=== PATIENT | male | born 1940 | race Caucasian/White ===

== ENCOUNTER 2016-08-19 16:41 | Observation (INO) | payer OTHER, MEDICARE ==
[2016-08-19] VITALS (8 sets, daily range): BP systolic 92–182; BP diastolic 52–91; PULSE 83–101; RESP 16–20; TEMP 97.3–98.3; O2SAT 93–98
[~2016-08-19] VITALS: Ht 177.8 cm; Wt 79.0 kg
--- NOTE | 2016-08-19 16:56 | PD ---
Physical Exam Date Seen by Provider: August 19, 2016 Time Seen by Provider: 16:53 Narrative 75 year old male presents to the emergency department for evaluation of frequent falls, difficulty swallowing for 1 week. He states his legs have been giving out and he has been falling 2-3x weekly. Vital signs reviewed. Patient awaiting bed placement. Data Data Last Documented VS Vital Signs Date Time Temp Pulse Resp B/P Pulse Ox O2 Delivery O2 Flow Rate FiO2 08/19/16 16:43 97.3 101 16 92/52 97 MDM Supervised Visit with KRISTEN: Priya Mejias August 19, 2016 16:56
[2016-08-19] MEDS ORDERED: DULA0.5I SQ (17:33)
[2016-08-19] MEDS ORDERED: COLL30T TOPICAL (17:33)
[2016-08-19] MEDS ORDERED: CYMB60CA PO (17:37)
[2016-08-19] MEDS ORDERED: PRIL20CA9 PO (17:37)
[2016-08-19] MEDS ORDERED: CYAN1CAP PO (17:37)
[2016-08-19] MEDS ORDERED: VENL75CA44 PO (17:37)
[2016-08-19] MEDS ORDERED: METF500T PO (17:37)
[2016-08-19] MEDS ORDERED: ASPI81TA11 PO (17:37)
[2016-08-19] MEDS ORDERED: AMMO12LO TOPICAL (17:40)
[2016-08-19] MEDS ORDERED: NOVOLOGP2 SQ (17:40)
[2016-08-19] MEDS ORDERED: LANTUS2P SQ (17:41)
--- NOTE | 2016-08-19 17:51 | PD ---
HPI Chief Complaint: Neuro Symptoms/ Deficits Time Seen by Provider: 17:07 Travel History International Travel<30 days: No Contact w/Intl Traveler<30days: No Traveled to known affect area: No History of Present Illness HPI 75yo M with PMH of DM, peripheral neuropathy was sent here for evaluation of frequent falls by his PMD Dr. Steven. 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 Pt has left periorbital ecchymoses from falling last week and last fell backwards this morning and hit his head. Denies any LOC and states he got up himself. Pt also c/o sob today. Pt has right lower ext swelling for a while and states he had cellulitis and that has improved. Pt is also complaining of difficulty swallowing for 2 days. States he has not eaten solid food and feels that his pills gets stuck in his esophagus. This is new. Denies any fever, chest pain, n/v, abdominal pain. PFSH Past Medical History Anemia: Yes Anxiety: Yes Cardiovascular Problems: Yes Dementia: Yes Diabetes: Yes Patient Takes Glucophage: Yes Diminished Hearing: No GERD: Yes Medical other: Yes (chronic kidney disease ) Psychiatric: Yes Tetanus Vaccination: > 5 Years Influenza Vaccination: No Social History Alcohol Use: No Tobacco Use: No Substance Use: No Allergies-Medications (Allergen,Severity, Reaction): Coded Allergies: Augmentin (Verified Adverse Reaction, Unknown, kidney problem, 08/19/16) Reported Meds & Prescriptions Reported Meds & Active Scripts Active Reported Lantus Inj (Insulin Glargine) 1,000 Unit/10 Ml Vial 25 Units SQ HS Novolog Inj (Insulin Aspart) 1,000 Unit/10 Ml Vial 0 SQ TIDAC Sliding Scale as directed. Ammonium Lactate (Lactic Acid (Ammonium Lactate)) 12% Lotn 1 Applic TOPICAL BID PRN Prilosec (Omeprazole) 20 Mg Cap 20 Mg PO DAILY Metformin (Metformin HCl) 500 Mg Tab 500 Mg PO BIDPC With meals B-12 (Cyanocobalamin) 5,000 Mcg Cap 5,000 Mcg PO DAILY Aspirin EC (Aspirin) 81 Mg Tabdr 81 Mg PO DAILY Venlafaxine ER 24 HR (Venlafaxine HCl) 75 Mg Cap 75 Mg PO DAILY Cymbalta DR (Duloxetine HCl) 60 Mg Capdr 60 Mg PO BID Santyl Topical (Collagenase) 250 Unit/Gm Oint 1 Applic TOPICAL DAILY Trulicity Inj (Dulaglutide Inj) 1.5 Mg/0.5 Ml Pen 1.5 Mg SQ Q7D ON FRIDAYS Review of Systems Except as stated in HPI: all other systems reviewed are Neg Physical Exam Narrative GENERAL: 75yo M not in distress. SKIN: Focused skin assessment warm/dry. HEAD: Atraumatic. Normocephalic. Periorbital ecchymoses on left that looks old. EYES: Pupils equal and round. No scleral icterus. No injection or drainage. ENT: No nasal bleeding or discharge. Mucous membranes pink and moist. NECK: Trachea midline. No JVD. CARDIOVASCULAR: Regular rate and rhythm. No murmur appreciated. RESPIRATORY: No accessory muscle use. Clear to auscultation. Breath sounds equal bilaterally. GASTROINTESTINAL: Abdomen soft, non-tender, nondistended. MUSCULOSKELETAL: RLE: +Edema. No erythema. NEUROLOGICAL: Awake and alert. No obvious cranial nerve deficits. Motor grossly within normal limits. Normal speech. PSYCHIATRIC: Appropriate mood and affect; insight and judgment normal. Data Data Last Documented VS Vital Signs Date Time Temp Pulse Resp B/P Pulse Ox O2 Delivery O2 Flow Rate FiO2 08/19/16 20:00 85 16 132/66 97 Room Air 08/19/16 16:[address] Brain W/O Iv Contrast(Rout) (08/19/16 ) Ct Facial Bones W/O Iv Cont (08/19/16 ) Complete Blood Count With Diff (08/19/16 17:40) Basic Metabolic Panel (Bmp) (08/19/16 17:40) B-Type Natriuretic Peptide (08/19/16 17:40) Act Partial Throm Time (Ptt) (08/19/16 17:40) Prothrombin Time / Inr (Pt) (08/19/16 17:40) Magnesium (Mg) (08/19/16 17:40) Ckmb (Isoenzyme) Profile (08/19/16 17:40) Troponin I (08/19/16 17:40) Urinalysis - C+S If Indicated (08/19/16 17:40) Electrocardiogram (08/19/16 17:40) Chest, Single Ap (08/19/16 17:40) Ct Pulmonary Angiogram (08/19/16 17:40) Us Leg Venous Doppler (08/19/16 17:40) Sodium Chlor 0.9% 1000 Ml Inj (Ns 1000 M (08/19/16 19:00) Iohexol 350 Inj (Omnipaque 350 Inj) (08/19/16 19:19) Place In Observation (08/19/16 ) Vital Signs (Adult) Q4H (08/19/16 20:18) Activity Oob With Assistance (08/19/16 20:18) Humidifier Maintenance Worker / Telemetry .CONTINUOUS (08/19/16 20:18) Diet Npo (08/20/16 Breakfast) Sodium Chloride 0.9% Flush (Ns Flush) (08/19/16 20:30) Sodium Chloride 0.9% Flush (Ns Flush) (08/19/16 21:00) Basic Metabolic Panel (Bmp) (08/20/16 06:00) Complete Blood Count With Diff (08/20/16 06:00) Naloxone Inj (Narcan Inj) (08/19/16 20:30) Admit Order (Ed Use Only) (08/19/16 20:18) Dext 5%-Nacl 0.9% 1000 Ml Inj (D5w-Ns 10 (08/19/16 20:30) Bedside Glucose BON.AC&HS (08/19/16 20:20) Blood Glucose Goal (Criteria) (08/19/16 20:20) Hypoglycemia 51 - 69 Mg/Dl (08/19/16 20:20) Hypoglycemia 50 Mg/Dl Or < (08/19/16 20:20) Notify Dr: Other (08/19/16 20:20) Dextrose 50% In Hailey (Vial) Inj (D50w (Vi (08/19/16 20:30) Glucagon Inj (Glucagon Inj) (08/19/16 20:30) Labs Laboratory Tests Test 08/19/16 17:10 White Blood Count 9.6 TH/MM3 Red Blood Count 4.64 MIL/MM3 Hemoglobin 11.6 GM/DL Hematocrit 36.8 % Mean Corpuscular Volume 79.2 FL Mean Corpuscular Hemoglobin 25.1 PG Mean Corpuscular Hemoglobin 31.6 % Concent Red Cell Distribution Width 16.7 % Platelet Count 386 TH/MM3 Mean Platelet Volume 8.4 FL Neutrophils (%) (Auto) 70.4 % Lymphocytes (%) (Auto) 16.2 % Monocytes (%) (Auto) 11.7 % Eosinophils (%) (Auto) 0.9 % Basophils (%) (Auto) 0.8 % Neutrophils # (Auto) 6.7 TH/MM3 Lymphocytes # (Auto) 1.5 TH/MM3 Monocytes # (Auto) 1.1 TH/MM3 Eosinophils # (Auto) 0.1 TH/MM3 Basophils # (Auto) 0.1 TH/MM3 CBC Comment DIFF FINAL Differential Comment Prothrombin Time 11.1 SEC Prothromb Time International 1.0 RATIO Ratio Activated Partial 28.9 SEC Thromboplast Time Sodium Level 134 MEQ/L Potassium Level 4.9 MEQ/L Chloride Level 96 MEQ/L Carbon Dioxide Level 29.5 MEQ/L Anion Gap 9 MEQ/L Blood Urea Nitrogen 38 MG/DL Creatinine 1.61 MG/DL Estimat Glomerular Filtration 42 ML/MIN Rate Random Glucose 311 MG/DL Calcium Level 9.4 MG/DL Magnesium Level 2.2 MG/DL Total Creatine Kinase 60 U/L Troponin I LESS THAN 0.02 NG/ML B-Type Natriuretic Peptide 47 PG/ML MDM Medical Decision Making Medical Screen Exam Complete: Yes Emergency Medical Condition: Yes Interpretation(s) EKG: NSR 89bpm. Normal axis. No ST segment elevation or depression. Differential Diagnosis Malignancy vs. PE vs. DVT vs. dehydration vs. electrolyte abnormality vs. ICH Narrative Course 75yo M with multiple complaints. Pt with frequent falls in the last week, last fall this morning. No focal neurologic deficit. Will obtain CT brain, maxillofacial. Labs reviewed, no leukocytosis. BNP 47. Troponin negative. Glucose elevated at 311. No increased anion gap. Will give NS IVF. Creatinine elevated at 1.61, no prior to compare. Pt states he has difficulty swallowing, will need GI consult. Pt also with SOB and no wheezing on exam. Although low suspicion for PE, pt has right lower ext edema and unexplained sob , will obtain CTA to r/o PE. Sign out to next team to follow up imaging and likely admit. Diagnosis Primary Impression: Difficulty swallowing Qualified Code: R13.12 - Oropharyngeal dysphagia Aurelia Dennison DO August 19, 2016 17:51
--- NOTE | 2016-08-19 18:00 | RADRPT ---
EXAM DATE/TIME: 08/19/2016 17:56 [facility] COMPARISON: No previous studies available for comparison. INDICATIONS : Shortness of breath. MEDICAL HISTORY : None. SURGICAL HISTORY : None. ENCOUNTER: Initial ACUITY: 1 week PAIN SCORE: 0/10 LOCATION: Bilateral chest FINDINGS: A single view of the chest demonstrates the lungs to be symmetrically aerated without evidence of mas s, infiltrate or effusion. The cardiomediastinal contours are unremarkable. Osseous structures are intact. CONCLUSION: No acute disease. Mark Palmer MD on August 19, 2016 at 17:58 Board Certified Radiologist. This report was verified electronically.
[2016-08-19 18:11] LABS: AUTOMATED NEUTROPHIL # 6.7 TH/MM3 (1.8-7.7); BASOPHIL # 0.1 TH/MM3 (0-0.2); BASOPHIL % 0.8 % (0.0-2.0); EOSINOPHIL # 0.1 TH/MM3 (0-0.4); EOSINOPHIL % 0.9 % (0.0-4.0); HEMATOCRIT 36.8 % (39.0-51.0); HEMO FLAGS DIFF FINAL; LYMPH % 16.2 % (9.0-44.0); LYMPHOCYTE # 1.5 TH/MM3 (1.0-4.8); MEAN CELL VOLUME 79.2 FL (80.0-100.0); MEAN CORPUSCULAR HEMOGLOBIN 25.1 PG (27.0-34.0); MEAN CORPUSCULAR HGB CONC 31.6 % (32.0-36.0); MONO % 11.7 % (0.0-8.0); NEUT % 70.4 % (16.0-70.0); PLATELET COUNT 386 TH/MM3 (150-450); RED BLOOD COUNT 4.64 MIL/MM3 (4.50-5.90); RED CELL DISTRIBUTION WIDTH 16.7 % (11.6-17.2); WHITE BLOOD COUNT 9.6 TH/MM3 (4.0-11.0)
[2016-08-19 18:21] LABS: APTT (PATIENT) 28.9 SEC (24.3-30.1); PROTHROMBIN TIME - PATIENT 11.1 SEC (9.8-11.6)
[2016-08-19 18:29] LABS: ANION GAP 9 MEQ/L (5-15); BICARBONATE 29.5 MEQ/L (21.0-32.0); BLOOD UREA NITROGEN 38 MG/DL (7-18); CHLORIDE 96 MEQ/L (98-107); GLOMERULAR FILTRATION RATE 42 ML/MIN (>89); MAGNESIUM 2.2 MG/DL (1.5-2.5); POTASSIUM 4.9 MEQ/L (3.5-5.1); SODIUM (NA) 134 MEQ/L (136-145)
[2016-08-19 18:40] LABS: CREATINE KINASE 60 U/L (39-308)
--- NOTE | 2016-08-19 18:49 | RADRPT ---
EXAM DATE/TIME: 08/19/2016 18:18 [facility] COMPARISON: No previous studies available for comparison. INDICATIONS : Right leg swelling. MEDICAL HISTORY : Dementia. Gastroesophageal reflux disease. Chronic kidney disease. Diabetes. Anemia. Anxiety. SURGICAL HISTORY : Right foot debridment. ENCOUNTER: Initial ACUITY: >1 year PAIN SCORE: 0/10 LOCATION: Right leg. TECHNIQUE: Venous ultrasound of the leg was performed from the inguinal ligament to the proximal calf. Real-kenyatta e, color Doppler and spectral tracing, compression and augmentation techniques were used. FINDINGS: There is normal compressibility of the deep venous system from the inguinal region to the proximal ca lf. No echogenic clot is seen in the lumen of the common femoral, femoral, popliteal, and posterior tibial veins. There is a normal response of the venous system to proximal and distal augmentation an d respiration. CONCLUSION: Normal examination. Mark Palmer MD on August 19, 2016 at 18:47 Board Certified Radiologist. This report was verified electronically.
[2016-08-19] MEDS ORDERED: SODIUM CHLOR 0.9% 1000 ML INJ 1,000 ML IV ONE (19:00)
--- NOTE | 2016-08-19 19:12 | RADRPT ---
EXAM DATE/TIME: 08/19/2016 18:51 [facility] COMPARISON: No previous studies available for comparison. INDICATIONS : Falls for one week,left eye contusion,dizzy. RADIATION DOSE: 35.79 CTDIvol (mGy) MEDICAL HISTORY : Cardiovascular disease. Dementia. Diabetes SURGICAL HISTORY : None. ENCOUNTER: Initial ACUITY: 1 week PAIN SCALE: 5/10 LOCATION: cranial TECHNIQUE: Multiple contiguous axial images were obtained of the head. Using automated exposure control and adj ustment of the mA and/or kV according to patient size, radiation dose was kept as low as reasonably a chievable to obtain optimal diagnostic quality images. FINDINGS: CEREBRUM: The ventricles are normal for age. No evidence of midline shift, mass lesion, hemorrhage or acute in farction. No extra-axial fluid collections are seen. POSTERIOR FOSSA: The cerebellum and brainstem are intact. The 4th ventricle is midline. The cerebellopontine angle i s unremarkable. EXTRACRANIAL: The visualized portion of the orbits is intact. There is mucosal sinus disease involving the left sph enoid which appears chronic with some thickening of the sinus perez. SKULL: The calvaria is intact. No evidence of skull fracture. CONCLUSION: No acute intracranial findings. Mark Palmer MD on August 19, 2016 at 19:08 Board Certified Radiologist. This report was verified electronically.
[2016-08-19] MEDS ORDERED: IOHEXOL 350 MG/ML 10 ML VIAL (for RAD DIAG) IV ONE (19:19)
--- NOTE | 2016-08-19 19:19 | RADRPT ---
EXAM DATE/TIME: 08/19/2016 18:54 [facility] COMPARISON: No previous studies available for comparison. INDICATIONS : Falls for the past week,contusion left eye. RADIATION DOSE: 36.69 CTDIvol (mGy) MEDICAL HISTORY : Cardiovascular disease. Dementia. Diabetes SURGICAL HISTORY : None. ENCOUNTER: Initial ACUITY: 1 week PAIN SCORE: 5/10 LOCATION: Bilateral facial TECHNIQUE: Volumetric scanning of the facial bones was performed. Using automated exposure control and adjustme nt of the mA and/or kV according to patient size, radiation dose was kept as low as reasonably achiev able to obtain optimal diagnostic quality images. FINDINGS: ORBITS: The orbital and infraorbital osseous structures are intact. The retroconal structures have a normal configuration. No radiopaque foreign bodies are seen. NASAL BONE: The nasal bone and maxillary spine are intact ZYGOMATIC ARCHES: Symmetric without evidence of fracture. SINUSES: Moderate chronic appearing disease in the left sphenoid. NASAL CAVITY: The nasal septum is intact and midline. The lacrimal ducts are intact. SOFT TISSUES: No radiopaque foreign bodies seen. No soft-tissue swelling is seen. INTRACRANIAL: No intracranial air seen. CRIBIFORM PLATE: Grossly intact. CONCLUSION: No facial fracture. Mark Palmer MD on August 19, 2016 at 19:16 Board Certified Radiologist. This report was verified electronically.
--- NOTE | 2016-08-19 19:22 | RADRPT ---
EXAM DATE/TIME: 08/19/2016 18:59 [facility] COMPARISON: No previous studies available for comparison. INDICATIONS : Difficulty swallowing,painful inspiration,dizzy. IV CONTRAST: 50 cc Omnipaque 350 (iohexol) IV RADIATION DOSE: 10.94 CTDIvol (mGy) MEDICAL HISTORY : Cardiovascular disease. Dementia. Diabetes SURGICAL HISTORY : None. ENCOUNTER: Initial ACUITY: 1 week PAIN SCALE: 5/10 LOCATION: chest TECHNIQUE: Volumetric scanning of the chest was performed using a pulmonary embolism protocol MIP images were re constructed. Using automated exposure control and adjustment of the mA and/or kV according to patien t size, radiation dose was kept as low as reasonably achievable to obtain optimal diagnostic quality images. FINDINGS: PULMONARY ARTERIES: No filling defects are seen in the pulmonary arteries through the segmental level. LUNGS: There is minimal infiltrate in the posterior lateral left lung base. PLEURAE: There is no pleural thickening or pleural effusion. MEDIASTINUM: There is good visualization of the great vessels of the middle mediastinum. No evidence of mediastin al or hilar adenopathy/mass. MUSCULOSKELETAL: Within normal limits for patient age. MISCELLANEOUS: Liver cyst. CONCLUSION: No evidence of pulmonary embolism Mark Palmer MD on August 19, 2016 at 19:17 Board Certified Radiologist. This report was verified electronically.
--- NOTE | 2016-08-19 20:06 | PD ---
Physical Exam Narrative Patient was seen by ED physician and signed out to me. Data Data Last Documented VS Vital Signs Date Time Temp Pulse Resp B/P Pulse Ox O2 Delivery O2 Flow Rate FiO2 08/19/16 19:29 88 16 182/84 93 Room Air 08/19/16 16:[address] Brain W/O Iv Contrast(Rout) (08/19/16 ) Ct Facial Bones W/O Iv Cont (08/19/16 ) Complete Blood Count With Diff (08/19/16 17:40) Basic Metabolic Panel (Bmp) (08/19/16 17:40) B-Type Natriuretic Peptide (08/19/16 17:40) Act Partial Throm Time (Ptt) (08/19/16 17:40) Prothrombin Time / Inr (Pt) (08/19/16 17:40) Magnesium (Mg) (08/19/16 17:40) Ckmb (Isoenzyme) Profile (08/19/16 17:40) Troponin I (08/19/16 17:40) Urinalysis - C+S If Indicated (08/19/16 17:40) Electrocardiogram (08/19/16 17:40) Chest, Single Ap (08/19/16 17:40) Ct Pulmonary Angiogram (08/19/16 17:40) Us Leg Venous Doppler (08/19/16 17:40) Sodium Chlor 0.9% 1000 Ml Inj (Ns 1000 M (08/19/16 19:00) Iohexol 350 Inj (Omnipaque 350 Inj) (08/19/16 19:19) Labs Laboratory Tests Test 08/19/16 17:10 White Blood Count 9.6 TH/MM3 Red Blood Count 4.64 MIL/MM3 Hemoglobin 11.6 GM/DL Hematocrit 36.8 % Mean Corpuscular Volume 79.2 FL Mean Corpuscular Hemoglobin 25.1 PG Mean Corpuscular Hemoglobin 31.6 % Concent Red Cell Distribution Width 16.7 % Platelet Count 386 TH/MM3 Mean Platelet Volume 8.4 FL Neutrophils (%) (Auto) 70.4 % Lymphocytes (%) (Auto) 16.2 % Monocytes (%) (Auto) 11.7 % Eosinophils (%) (Auto) 0.9 % Basophils (%) (Auto) 0.8 % Neutrophils # (Auto) 6.7 TH/MM3 Lymphocytes # (Auto) 1.5 TH/MM3 Monocytes # (Auto) 1.1 TH/MM3 Eosinophils # (Auto) 0.1 TH/MM3 Basophils # (Auto) 0.1 TH/MM3 CBC Comment DIFF FINAL Differential Comment Prothrombin Time 11.1 SEC Prothromb Time International 1.0 RATIO Ratio Activated Partial 28.9 SEC Thromboplast Time Sodium Level 134 MEQ/L Potassium Level 4.9 MEQ/L Chloride Level 96 MEQ/L Carbon Dioxide Level 29.5 MEQ/L Anion Gap 9 MEQ/L Blood Urea Nitrogen 38 MG/DL Creatinine 1.61 MG/DL Estimat Glomerular Filtration 42 ML/MIN Rate Random Glucose 311 MG/DL Calcium Level 9.4 MG/DL Magnesium Level 2.2 MG/DL Total Creatine Kinase 60 U/L Troponin I LESS THAN 0.02 NG/ML B-Type Natriuretic Peptide 47 PG/ML MDM Supervised Visit with KRISTEN: No Narrative Course Patient was seen by ED physician and signed out to me. Patient main complaint is difficulty in swallowing for the past 2 days and generalized weakness. Normal saline solution and liter IV bolus. Normal saline solution 100 cc an hour. Protonix 40 mg IV. Diagnosis Primary Impression: Difficulty swallowing Qualified Code: R13.12 - Oropharyngeal dysphagia Additional Impressions: Chronic kidney disease Qualified Code: N18.3 - Stage 3 chronic kidney disease Hyperglycemia Admitting Information Admitting Physician Requests: Observation Livan Banks MD August 19, 2016 20:06
[2016-08-19] MEDS ORDERED: SODIUM CHLORIDE 0.9% FLUSH 10 ML FLUSH IV FLUSH PRN (20:30)
[2016-08-19] MEDS ORDERED: GLUCAGON 1 MG/ML VIAL OTHER PRN (20:30)
[2016-08-19] MEDS ORDERED: DEXT 5%-NACL 0.9% 1000 ML INJ 1,000 ML IV SCH (20:30)
[2016-08-19] MEDS ORDERED: DEXTROSE 50% IN WATER 50 ML VIAL(D50) IV PUSH PRN (20:30)
[2016-08-19] MEDS ORDERED: NALOXONE HCL 0.4 MG/ML AMP IV PRN (20:30)
[2016-08-19] MEDS: SODIUM CHLORIDE 0.9% FLUSH 10 ML FLUSH IV FLUSH SCH (21:00)
--- NOTE | 2016-08-19 23:35 | HHI.HP ---
[facility] Admission Diagnosis difficulty in swallowing. Renal insufficiency. Hyperglycemia. Diagnoses: Chief Complaint: frequent falls and dysphagia Travel History International Travel<30 Days: No Contact w/Intl Traveler <30 Da: No Traveled to Known Affected Are: No History of Present Illness This is a 75-year-old male patient with past medical history which includes diabetes mellitus, GERD and depression. Patient was sent by [facility] clinic. Per evaluation after fall in a parking lot. Patient reports he has had Intermittent dizziness x 2 weeks. Feels as though he is spinning inside, does not feel as though the room is spinning. Dizziness only occurs with standing. Patient also reports associated shortness of breath. Patient denies associated ear discharge, ringing in the ears, N/V or diaphoresis. Patient report he had chest pain after he fell and hit the ground. Chest pain described as a stabbing sensation lasting seconds then resolving spontaneously. Patient reports that he gets so dizzy that has fallen down several times. Patient estimates 20 falls over the past two weeks. Today patient got dizzy walking in a parking lot and fell face forward. Patient denies LOC. Patient denies blood in stool or black color stools. Patient is a diabetic and reports his blood sugar have been running high 200- 300 lately. Glucose upon arrival 312 Patient does report that his BP is usually low when he checks if after his falls , reported SBP as been as low as 60's. Patient also has have difficult swallowing for the past 2-3 days. Patient reports he is unable to swallow liquids from a cup he has to use a straw. Patient is unable to get solids down. Patient reports he often coughs after trying to eat solids or drink liquids. Patient reports he has never had EGD or colonoscopy. Patient has had unilateral lower extremity edema R>L for the past 5 years. Patient also seeing a [facility] operating systems programmer for wound right foot medial surface, had I& D yesterday. Patient denies fevers chills cough congestion nausea vomiting diarrhea constipation. Review of Systems Except as stated in HPI: all other systems reviewed are Neg Past Family Social History Past Medical History DM, GERD and depression Past Surgical History Cervical discectomy, debridement of feet wound, appendectomy Reported Medications Lantus Inj (Insulin Glargine) 1,000 Unit/10 Ml Vial 25 Units SQ HS Novolog Inj (Insulin Aspart) 1,000 Unit/10 Ml Vial 0 SQ TIDAC Sliding Scale as directed. Ammonium Lactate (Lactic Acid (Ammonium Lactate)) 12% Lotn 1 Applic TOPICAL BID PRN Prilosec (Omeprazole) 20 Mg Cap 20 Mg PO DAILY Metformin (Metformin HCl) 500 Mg Tab 500 Mg PO BIDPC With meals B-12 (Cyanocobalamin) 5,000 Mcg Cap 5,000 Mcg PO DAILY Aspirin EC (Aspirin) 81 Mg Tabdr 81 Mg PO DAILY Venlafaxine ER 24 HR (Venlafaxine HCl) 75 Mg Cap 75 Mg PO DAILY Cymbalta DR (Duloxetine HCl) 60 Mg Capdr 60 Mg PO BID Santyl Topical (Collagenase) 250 Unit/Gm Oint 1 Applic TOPICAL DAILY Trulicity Inj (Dulaglutide Inj) 1.5 Mg/0.5 Ml Pen 1.5 Mg SQ Q7D ON FRIDAYS Allergies: Coded Allergies: Augmentin (Verified Adverse Reaction, Unknown, kidney problem, 08/19/16) Active Ordered Medications Current Medications Medications (Trade) Dose Ordered Sig/Robert Route Start Time Stop Time Status Last Admin (NS Flush) 2 ml UNSCH PRN IV FLUSH 08/19/16 20:30 (NS Flush) 2 ml BID IV FLUSH 08/19/16 21:00 08/19/16 21:00 Naloxone HCl 0.4 mg 0.4 mg UNSCH PRN IV 08/19/16 20:30 (D5W-NS 1000 ml Inj) 1,000 ml @ 42 mls/hr [id number] IV 08/19/16 20:30 08/19/16 21:00 (D50w (Vial) Inj) 25 ml UNSCH PRN IV PUSH 08/19/16 20:30 (Glucagon Inj) 1 mg UNSCH PRN OTHER 08/19/16 20:30 (D50w (Vial) Inj) 25 ml UNSCH PRN IV PUSH 08/20/16 00:00 UNV (Glucagon Inj) 1 mg UNSCH PRN OTHER 08/20/16 00:00 UNV (Ecotrin Ec) 81 mg DAILY PO 08/20/16 09:00 UNV (Cymbalta Dr) 60 mg BID PO 08/20/16 09:00 UNV (Effexor Xr) 75 mg DAILY PO 08/20/16 09:00 UNV Non-Formulary Medication 20 mg DAILY PO 08/20/16 09:00 UNV Family History Mother had, "intestinal cancer" brother also had cancer unable to recall type Social History Denies ETOH use, tobacco use or illicit drug use Physical Exam Vital Signs Vital Signs Date Time Temp Pulse Resp B/P Pulse Ox O2 Delivery O2 Flow Rate FiO2 08/19/16 22:35 88 08/19/16 22:19 98.3 86 20 167/91 96 08/19/16 21:01 84 18 172/83 96 Room Air 08/19/16 20:00 85 16 132/66 97 Room Air 08/19/16 19:29 88 16 182/84 93 Room Air 08/19/16 18:06 89 17 141/77 98 Room Air 08/19/16 17:05 92 17 98 Room Air 08/19/16 16:43 97.3 101 16 92/52 97 Physical Exam GENERAL: This is a 75-year-old male patient appears disheveled with ecchymosis across nasal bridge and left periorbital area, clinically appears dry with dry mucous membranes and dry skin SKIN: Scattered abrasions throughout bilateral upper and lower extremities with with ecchymosis across nasal bridge and left periorbital area, ulceration right foot medial aspect no erythema, drainage or foul odor noted HEAD: ecchymosis across nasal bridge and left periorbital area EYES: Extraocular motions intact. No scleral icterus. No injection or drainage. CARDIOVASCULAR: Regular rate and rhythm without murmurs, gallops, or rubs. RESPIRATORY: Clear to auscultation. Breath sounds equal bilaterally. No wheezes , rales, or rhonchi. GASTROINTESTINAL: Abdomen soft, non-tender, nondistended. No hepato-splenomegaly , or palpable masses. No guarding. MUSCULOSKELETAL: No calf tenderness. Negative Homans sign bilaterally. Right lower extremity edema NEUROLOGICAL: Awake and alert. No focal deficits noted. Motor and sensory grossly within normal limits. 4-5 out of 5 muscle strength in all muscle groups. Normal speech. Laboratory Laboratory Tests Test 08/19/16 17:10 White Blood Count 9.6 Red Blood Count 4.64 Hemoglobin 11.6 Hematocrit 36.8 Mean Corpuscular Volume 79.2 Mean Corpuscular Hemoglobin 25.1 Mean Corpuscular Hemoglobin 31.6 Concent Red Cell Distribution Width 16.7 Platelet Count 386 Mean Platelet Volume 8.4 Neutrophils (%) (Auto) 70.4 Lymphocytes (%) (Auto) 16.2 Monocytes (%) (Auto) 11.7 Eosinophils (%) (Auto) 0.9 Basophils (%) (Auto) 0.8 Neutrophils # (Auto) 6.7 Lymphocytes # (Auto) 1.5 Monocytes # (Auto) 1.1 Eosinophils # (Auto) 0.1 Basophils # (Auto) 0.1 CBC Comment DIFF FINAL Differential Comment Prothrombin Time 11.1 Prothromb Time International 1.0 Ratio Activated Partial 28.9 Thromboplast Time Sodium Level 134 Potassium Level 4.9 Chloride Level 96 Carbon Dioxide Level 29.5 Anion Gap 9 Blood Urea Nitrogen 38 Creatinine 1.61 Estimat Glomerular Filtration 42 Rate Random Glucose 311 Calcium Level 9.4 Magnesium Level 2.2 Total Creatine Kinase 60 Troponin I LESS THAN 0.02 B-Type Natriuretic Peptide 47 Result Diagram: 08/19/16170908/19/161709 Imaging Last Impressions Lower Extremity Ultrasound 08/19/161739 Signed Impressions: Service Date/Time: Friday, August 19, 2016 18:18 - CONCLUSION: Normal examination. Mark Palmer MD Chest X-Ray 08/19/161739 Signed Impressions: Service Date/Time: Friday, August 19, 2016 17:56 - CONCLUSION: No acute disease. Mark Palmer MD CT Angiography [id number]/19/161739 Signed Impressions: Service Date/Time: Friday, August 19, 2016 18:59 - CONCLUSION: No evidence of pulmonary embolism Mark Palmer MD Maxillofacial CT 08/19/16 0000 Signed Impressions: Service Date/Time: Friday, August 19, 2016 18:54 - CONCLUSION: No facial fracture. Mark Palmer MD Head CT 08/19/16 0000 Signed Impressions: Service Date/Time: Friday, August 19, 2016 18:51 - CONCLUSION: No acute intracranial findings. Mark Palmer MD Assessment and Plan Problem List: (1) Dizziness ICD Code: R42 Status: Acute (2) Postural dizziness ICD Code: R42 Status: Acute (3) Difficulty swallowing ICD Code: R13.10 Status: Acute (4) DM type 2, uncontrolled, with lower extremity ulcer ICD Code: E11.622 Status: Chronic Assessment and Plan This is a 75-year-old male patient with past medical history which includes diabetes mellitus, GERD and depression. Patient was sent by [facility] clinic. Per evaluation after fall in a parking lot. Patient reports he has had Intermittent dizziness x 2 weeks. With frequent falls and SOB x 2 weeks. Patient also has have difficult swallowing for the past 2-3 days. Dizziness with frequent falls: Dehydration versus vertigo versus carotid stenosis versus posterior circulation insufficiency versus arrhythmia versus postural hypotension CT angiogram chest reviewed negative for pulmonary embolism Continue gentle IV hydration Continuous cardiac telemetry US bilateral carotid arteries ordered Check orthostatic vital signs Dysphagia- with both liquids and solids Nothing by mouth at this time IV hydration Consult GI Diabetes mellitus uncontrolled Accu checks before meals at bedtime with low-dose sliding scale insulin coverage and adjust as indicated Ulceration right foot medial aspect Consult wound care Right lower extremity edema chronic Lower extremity ultrasound reviewed no evidence of DVT Other chronic stable conditions include GERD and depression will continue home medications DVT prophylaxis with SCDs Discussed with ER provider, nursing and patient Written by Lakisha Matute, acting as scribe for Dr. Fung on 08/20/16 at 00: 03. This note was transcribed by scribe [ Lakisha Matute]. I, Dr. Madelaine Fung personally performed the history, physical exam, and medical decision making; and confirmed the accuracy of the information in the transcribed note. Authenticated by Dr. Madelaine Fung on 08/20/16 at 00:03. Problem Qualifiers (1) Difficulty swallowing: Qualified Code: R13.12 - Oropharyngeal dysphagia Lakisha Matute August 19, 2016 23:35 Madelaine Fung MD Sep 21, 2016 12:13
[2016-08-20] VITALS (8 sets, daily range): BP systolic 54–196; BP diastolic 42–102; PULSE 82–92; RESP 16–20; TEMP 97.6–98.6; O2SAT 95–98
[2016-08-20] MEDS ORDERED: GLUCAGON 1 MG/ML VIAL OTHER PRN
[2016-08-20] MEDS ORDERED: DEXTROSE 50% IN WATER 50 ML VIAL(D50) IV PUSH PRN
[2016-08-20 03:36] LABS: BLOOD, URINE NEG (NEG); COMMENT (UR) CULT NOT INDICATED; CULTURE IF INDICATED CULT NOT INDICATED; GLUCOSE,URINE 1000 mg/dL (NEG); HYALINE CAST, URINE 15 /lpf (RARE); KETONE, URINE 10 mg/dL (NEG); MUCUS URINE FEW /lpf (OCC); NITRITE,URINE NEG (NEG); PH, URINE 5.5 (5.0-8.5); SQUAMOUS EPITHELIAL CELL URINE <1 /hpf (0-5); URINE COLOR YELLOW (YELLW/STRAW)
[2016-08-20] MEDS: SODIUM CHLOR 0.9% 1000 ML INJ 1,000 ML IV SCH ×2 (08:07→17:30)
[2016-08-20] MEDS: DEXT 5%-NACL 0.45% 1000 ML INJ 1,000 ML IV SCH (08:13)
[2016-08-20] MEDS: DULoxetine HCl DR 60 MG CAP PO SCH ×2 (08:26→20:01)
[2016-08-20] MEDS: VENLAFAXINE HCL XR 75 MG CAP PO SCH (08:26)
[2016-08-20] MEDS: ASPIRIN EC 81 MG TABEC PO SCH (08:26)
[2016-08-20] MEDS: SODIUM CHLORIDE 0.9% FLUSH 10 ML FLUSH IV FLUSH SCH ×2 (08:27→20:01)
[2016-08-20 08:34] LABS: AUTOMATED NEUTROPHIL # 5.4 TH/MM3 (1.8-7.7); BASOPHIL # 0.1 TH/MM3 (0-0.2); BASOPHIL % 0.8 % (0.0-2.0); EOSINOPHIL # 0.2 TH/MM3 (0-0.4); EOSINOPHIL % 2.1 % (0.0-4.0); HEMATOCRIT 38.3 % (39.0-51.0); HEMO FLAGS DIFF FINAL; LYMPH % 23.2 % (9.0-44.0); LYMPHOCYTE # 1.9 TH/MM3 (1.0-4.8); MEAN CELL VOLUME 78.8 FL (80.0-100.0); MEAN CORPUSCULAR HEMOGLOBIN 25.4 PG (27.0-34.0); MEAN CORPUSCULAR HGB CONC 32.3 % (32.0-36.0); MONO % 9.3 % (0.0-8.0); NEUT % 64.6 % (16.0-70.0); PLATELET COUNT 433 TH/MM3 (150-450); RED BLOOD COUNT 4.85 MIL/MM3 (4.50-5.90); RED CELL DISTRIBUTION WIDTH 16.4 % (11.6-17.2); WHITE BLOOD COUNT 8.4 TH/MM3 (4.0-11.0)
[2016-08-20] MEDS: INSULIN ASPART SUPPLEMENTAL SCALE SQ SCH ×4 (08:49→20:10)
[2016-08-20] MEDS ORDERED: PANTOPRAZOLE SOD 20 MG DELAYED RELEASE TAB PO SCH (09:00)
[2016-08-20 09:07] LABS: BICARBONATE 30.1 MEQ/L (21.0-32.0); POTASSIUM 5.1 MEQ/L (3.5-5.1)
--- NOTE | 2016-08-20 09:29 | RADRPT ---
EXAM DATE/TIME: 08/20/2016 08:11 [place] COMPARISON: No previous studies available for comparison. INDICATIONS : Syncope. MEDICAL HISTORY : Cardiovascular disease. Dementia. Diabetes SURGICAL HISTORY : None. ENCOUNTER: Initial ACUITY: 1 day PAIN SCORE: 3/10 LOCATION: Bilateral neck PEAK SYSTOLIC VELOCITIES (cm/sec): ICA/CCA RATIO: Right: 1.1 Left: 1.3 ICA: Right: 58 Left: 67 CCA: Right: 51 Left: 51 ECA: Right: 60 Left: 64 VERTEBRAL: Right: 34 antegrade Left: 48 antegrade Elevated flow velocities and ICA/CCA ratios have been found to correlate with increased degrees of vessel stenosis, calculated as percentage of diameter relative to a normal segment of distal ICA/CCA FINDINGS: RIGHT CAROTID: No significant stenosis is visualized. The waveforms are within normal limits. LEFT CAROTID: No significant stenosis is visualized. The waveforms are within normal limits. VERTEBRAL ARTERIES: Antegrade flow is seen in both vertebral arteries. MISCELLANEOUS: None. CONCLUSION: 1. Minimal plaque in the carotid arteries bilaterally. No hemodynamically significant stenosis. Verte bral artery flow antegrade. Gabriel Ferrell MD on August 20, 2016 at 9:23 Board Certified Radiologist. This report was verified electronically.
--- NOTE | 2016-08-20 09:43 | PD.CONS ---
HPI History of Present Illness This is a 75 year old [gentleman[facility] c/o dizziness and having multiple falls for the last 2 months and has been getting worse. GI was consulted for dysphagia. 4 days ago he began having trouble swallowing. It started just after he fell adn landed on his face, he couldn't swallow hot tea. AFter that he had trouble swallowing just about everything including water, solid food. When he tries to swallow he coughs and "just can't get it down", denies feeling of choking. He says he was ok with soup that he crushed crackers in to thicken. He had to use a straw to get fluids. THe straw seems to help b/c its a smaller amount of substance and he feels he had trouble with larger boluses. HE admits feeling tired and that is progressing, in the last few months and worse the last week. He Denies drooling, regurgitation, n/v, significant reflux or heartburn, odynophagia, abdominal pain , blood in stool, dark tarry stools, diarrhea, constipation. Never had EGD or colonoscopy. (Maryam Fermin) PFSH Past Medical History DM, and depression dizziness Past Surgical History anterior Cervical discectomy, debridement of feet wound, appendectomy (Maryam Fermin) Coded Allergies: Augmentin (Verified Adverse Reaction, Unknown, kidney problem, 08/19/16) Medications Current Medications Medications (Trade) Dose Ordered Sig/Robert Route PRN Reason Start Time Stop Time Status Last Admin Dose Admin Sodium Chloride (NS Flush) 2 ml UNSCH PRN IV FLUSH FLUSH AFTER USING IV ACCESS 08/19/16 20:30 Sodium Chloride (NS Flush) 2 ml BID IV FLUSH 08/19/16 21:00 08/20/16 08:27 Naloxone HCl (Narcan Inj) 0.4 mg UNSCH PRN IV SEE LABEL COMMENTS 08/19/16 20:30 Dextrose (D50w (Vial) Inj) 25 ml UNSCH PRN IV PUSH HYPOGLYCEMIA-SEE COMMENTS 08/19/16 20:30 Glucagon (Glucagon Inj) 1 mg UNSCH PRN OTHER HYPOGLYCEMIA-SEE COMMENTS 08/19/16 20:30 Dextrose (D50w (Vial) Inj) 25 ml UNSCH PRN IV PUSH HYPOGLYCEMIA-SEE COMMENTS 08/20/16 00:00 Glucagon (Glucagon Inj) 1 mg UNSCH PRN OTHER HYPOGLYCEMIA-SEE COMMENTS 08/20/16 00:00 Aspirin (Ecotrin Ec) 81 mg DAILY PO 08/20/16 09:00 Duloxetine HCl (Cymbalta Dr) 60 mg BID PO 08/20/16 09:00 Venlafaxine HCl (Effexor Xr) 75 mg DAILY PO 08/20/16 09:00 Pantoprazole Sodium 20 mg 20 mg DAILY PO 08/20/16 09:00 Sodium Chloride 1,000 ml @ 100 mls/hr Q10H IV 08/20/16 07:30 08/20/16 08:07 Dextrose/Sodium Chloride (D5W-1/2 NS 1000 ml Inj) 1,000 ml @ 42 mls/hr [id number] IV 08/20/16 07:45 08/20/16 08:13 Family History Mother had, "intestinal cancer" brother also had cancer unable to recall type Social History Denies ETOH use, tobacco use or illicit drug use (Maryam Fermin) Review of Systems Constitutional: COMPLAINS OF: Fatigue (all the time), DENIES: Fever Eyes: DENIES: Blurred vision Ears, nose, mouth, throat: COMPLAINS OF: Vertigo, DENIES: Throat pain Respiratory: DENIES: Cough Cardiovascular: DENIES: Palpitations Gastrointestinal: COMPLAINS OF: Difficulty Swallowing, DENIES: Abdominal pain , Black stools, Bloody stools, Constipation, Diarrhea, Nausea, Vomiting, Odynophagia, Heartburn Genitourinary: DENIES: Hematuria Musculoskeletal: DENIES: Muscle aches Integumentary: DENIES: Abnormal pigmentation Hematologic/lymphatic: DENIES: Bruising Neurologic: COMPLAINS OF: Localized weakness (feels weak on his legs when he stands) Psychiatric: DENIES: Confusion (Maryam Fermin) GI Exam Vitals I&O Vital Signs Date Time Temp Pulse Resp B/P Pulse Ox O2 Delivery O2 Flow Rate FiO2 08/20/16 07:40 97.6 85 16 177/102 95 115/75 82/54 08/20/16 07:25 85 08/20/16 04:18 98.1 82 20 182/96 98 08/19/16 23:45 98.3 83 20 167/82 96 08/19/16 22:35 88 08/19/16 22:19 98.3 86 20 167/91 96 08/19/16 21:01 84 18 172/83 96 Room Air 08/19/16 20:00 85 16 132/66 97 Room Air 08/19/16 19:29 88 16 182/84 93 Room Air 08/19/16 18:06 89 17 141/77 98 Room Air 08/19/16 17:05 92 17 98 Room Air 08/19/16 16:43 97.3 101 16 92/52 97 I/O 08/19/16 08/19/16 08/19/16 08/20/16 08/20/16 08/20/16 07:00 15:00 23:00 07:00 15:00 23:00 Intake Total 25 ml Balance 25 ml Intake Oral 25 ml Imaging Last Impressions Carotid Artery Ultrasound 08/20/16 Signed Impressions: Service Date/Time: August 08:11 - CONCLUSION: 1. Minimal plaque in the carotid arteries bilaterally. No hemodynamically significant stenosis. Vertebral artery flow antegrade. Gabriel Ferrell MD Lower Extremity Ultrasound [id number]/19/[id number] Signed Impressions: Service Date/Time: Friday, August 19, 2016 18:18 - CONCLUSION: Normal examination. Mark Palmer MD Chest X-Ray [id number]/19/161739 Signed Impressions: Service Date/Time: Friday, August 19, 2016 17:56 - CONCLUSION: No acute disease. Mark Palmer MD CT Angiography [id number]/19/161739 Signed Impressions: Service Date/Time: Friday, August 19, 2016 18:59 - CONCLUSION: No evidence of pulmonary embolism Mark Palmer MD Maxillofacial CT 08/19/16 Signed Impressions: Service Date/Time: Friday, August 19, 2016 18:54 - CONCLUSION: No facial fracture. Mark Palmer MD Head CT 08/19/16 Signed Impressions: Service Date/Time: Friday, August 19, 2016 18:51 - CONCLUSION: No acute intracranial findings. Mark Palmer MD Laboratory Test 08/19/16 08/20/16 17:10 06:52 White Blood Count 9.6 TH/MM3 8.4 TH/MM3 Red Blood Count 4.64 MIL/MM3 4.85 MIL/MM3 Hemoglobin 11.6 GM/DL 12.3 GM/DL Hematocrit 36.8 % 38.3 % Mean Corpuscular Volume 79.2 FL 78.8 FL Mean Corpuscular Hemoglobin 25.1 PG 25.4 PG Mean Corpuscular Hemoglobin 31.6 % 32.3 % Concent Red Cell Distribution Width 16.7 % 16.4 % Platelet Count 386 TH/MM3 433 TH/MM3 Mean Platelet Volume 8.4 FL 8.2 FL Neutrophils (%) (Auto) 70.4 % 64.6 % Lymphocytes (%) (Auto) 16.2 % 23.2 % Monocytes (%) (Auto) 11.7 % 9.3 % Eosinophils (%) (Auto) 0.9 % 2.1 % Basophils (%) (Auto) 0.8 % 0.8 % Neutrophils # (Auto) 6.7 TH/MM3 5.4 TH/MM3 Lymphocytes # (Auto) 1.5 TH/MM3 1.9 TH/MM3 Monocytes # (Auto) 1.1 TH/MM3 0.8 TH/MM3 Eosinophils # (Auto) 0.1 TH/MM3 0.2 TH/MM3 Basophils # (Auto) 0.1 TH/MM3 0.1 TH/MM3 CBC Comment DIFF FINAL DIFF FINAL Differential Comment Prothrombin Time 11.1 SEC Prothromb Time International 1.0 RATIO Ratio Activated Partial 28.9 SEC Thromboplast Time Sodium Level 134 MEQ/L 137 MEQ/L Potassium Level 4.9 MEQ/L 5.1 MEQ/L Chloride Level 96 MEQ/L 100 MEQ/L Carbon Dioxide Level 29.5 MEQ/L 30.1 MEQ/L Anion Gap 9 MEQ/L 7 MEQ/L Blood Urea Nitrogen 38 MG/DL 26 MG/DL Creatinine 1.61 MG/DL 1.14 MG/DL Estimat Glomerular Filtration 42 ML/MIN 63 ML/MIN Rate Random Glucose 311 MG/DL 229 MG/DL Calcium Level 9.4 MG/DL 9.4 MG/DL Magnesium Level 2.2 MG/DL Total Creatine Kinase 60 U/L Troponin I LESS THAN 0.02 NG/ML B-Type Natriuretic Peptide 47 PG/ML Physical Examination HEENT: EOMI; normocephalic; atraumatic; no jaundice. Bruising on nose CHEST: CTA. CARDIAC: RRR. ABDOMEN: Soft, nondistended, nontender; no hepatosplenomegaly; bowel sounds are present in all four quadrants. EXTREMITIES: No clubbing, cyanosis, or edema. SKIN: Normal; no rash; no jaundice. 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 (Maryam Fermin) Assessment and Plan Plan ASSESSMENT - dysphagia - onset 4 days ago after a fall. REcent hx dizziness and frequent falls. Is able to eat thick soup and swallow fluids with straw, but difficulty swallowing water, solid food. swallow eval pending, barium swallow pending. Will do EGD. PLAN - EGD tomorrow - obtain consents - NPO after midnight - await barium swallow and swallow eval - further recommendations based on results of above - This pt seen by myself and Dr Bradley and this note is written on her behalf ( Maryam Fermin) Physician Comments patient seen, examined he never had egd/colonoscopy in the past has neuropathy secondary diabetes, not following with any specialist he also reports fulness after eating , weight loss-40 lbs in the last 1 year due to poor appetite did not seek medical attention until recently egd in am speech therapy consult neurology consult if ok with medical team vit b12, folic acid , myasthenia gravis ab (Nikia Bradley MD) Maryam Fermin August 20, 2016 09:43 Nikia Bradley MD August 20, 2016 17:25
[2016-08-20] MEDS ORDERED: CYCLOBENZAPRINE HCL 10 MG TAB PO PRN (10:30)
--- NOTE | 2016-08-20 10:37 | HHI.PR ---
Subjective Remarks Follow up dysphagia and dizziness. Patient states he started to have difficultly swallowing 4 days ago after he fell. He reports that he coughs when he drinks liquids and he has pain when he takes a deep breath. He also states he falls when he stands up and becomes lightheaded, denies any LOC. Denies any chest pain, nausea or abdominal pain. Objective Vitals Vital Signs Date Time Temp Pulse Resp B/P Pulse Ox O2 Delivery O2 Flow Rate FiO2 08/20/16 07:40 97.6 85 16 177/102 95 115/75 82/54 08/20/16 07:25 85 08/20/16 04:18 98.1 82 20 182/96 98 08/19/16 23:45 98.3 83 20 167/82 96 08/19/16 22:35 88 08/19/16 22:19 98.3 86 20 167/91 96 08/19/16 21:01 84 18 172/83 96 Room Air 08/19/16 20:00 85 16 132/66 97 Room Air 08/19/16 19:29 88 16 182/84 93 Room Air 08/19/16 18:06 89 17 141/77 98 Room Air 08/19/16 17:05 92 17 98 Room Air 08/19/16 16:43 97.3 101 16 92/52 97 I/O 08/19/16 08/19/16 08/19/16 08/20/16 08/20/16 08/20/16 07:00 15:00 23:00 07:00 15:00 23:00 Intake Total 25 ml Balance 25 ml Intake Oral 25 ml Result Diagram: 08/20/16 0652 08/20/16 0652 Imaging Last Impressions Carotid Artery Ultrasound 08/20/16 0000 Signed Impressions: Service Date/Time: August 08:11 - CONCLUSION: 1. Minimal plaque in the carotid arteries bilaterally. No hemodynamically significant stenosis. Vertebral artery flow antegrade. Gabriel Ferrell MD Lower Extremity Ultrasound [id number]/[id number] Signed Impressions: Service Date/Time: Friday, August 19, 2016 18:18 - CONCLUSION: Normal examination. Mark Palmer MD Chest X-Ray [id number]/[id number] Signed Impressions: Service Date/Time: Friday, August 19, 2016 17:56 - CONCLUSION: No acute disease. Mark Palmer MD CT Angiography 08/19/16 1740 Signed Impressions: Service Date/Time: Friday, August 19, 2016 18:59 - CONCLUSION: No evidence of pulmonary embolism Mark Palmer MD Maxillofacial CT 08/19/16 0000 Signed Impressions: Service Date/Time: Friday, August 19, 2016 18:54 - CONCLUSION: No facial fracture. Mark Palmer MD Head CT 08/19/16 0000 Signed Impressions: Service Date/Time: Friday, August 19, 2016 18:51 - CONCLUSION: No acute intracranial findings. Mark Palmer MD Objective Remarks GENERAL: This is a 75-year-old male patient appears disheveled with ecchymosis across nasal bridge and left periorbital area, clinically appears dry with dry mucous membranes and dry skin SKIN: Scattered abrasions throughout bilateral upper and lower extremities with with ecchymosis across nasal bridge and left periorbital area, ulceration right foot medial aspect no erythema, drainage or foul odor noted HEAD: ecchymosis across nasal bridge and left periorbital area EYES: Extraocular motions intact. No scleral icterus. No injection or drainage. CARDIOVASCULAR: Regular rate and rhythm without murmurs, gallops, or rubs. RESPIRATORY: Clear to auscultation. Breath sounds equal bilaterally. No wheezes , rales, or rhonchi. GASTROINTESTINAL: Abdomen soft, non-tender, nondistended. No guarding. MUSCULOSKELETAL: No calf tenderness. NEUROLOGICAL: Awake and alert. No focal deficits noted. Motor and sensory grossly within normal limits.Normal speech. Medications and IVs Current Medications Medications (Trade) Dose Ordered Sig/Robert Route Start Time Stop Time Status Last Admin (NS Flush) 2 ml UNSCH PRN IV FLUSH 08/19/16 20:30 (NS Flush) 2 ml BID IV FLUSH 08/19/16 21:00 08/20/16 08:27 (Narcan Inj) 0.4 mg UNSCH PRN IV 08/19/16 20:30 (D50w (Vial) Inj) 25 ml UNSCH PRN IV PUSH 08/19/16 20:30 (Glucagon Inj) 1 mg UNSCH PRN OTHER 08/19/16 20:30 (D50w (Vial) Inj) 25 ml UNSCH PRN IV PUSH 08/20/16 00:00 (Glucagon Inj) 1 mg UNSCH PRN OTHER 08/20/16 00:00 (Ecotrin Ec) 81 mg DAILY PO 08/20/16 09:00 (Cymbalta Dr) 60 mg BID PO 08/20/16 09:00 (Effexor Xr) 75 mg DAILY PO 08/20/16 09:00 Pantoprazole Sodium 20 mg 20 mg DAILY PO 08/20/16 09:00 Sodium Chloride 1,000 ml @ 100 mls/hr Q10H IV 08/20/16 07:30 08/20/16 08:07 (D5W-/ NS 1000 ml Inj) 1,000 ml @ 42 mls/hr [id number] IV 08/20/16 07:45 08/20/16 08:13 A/P Problem List: (1) Orthostatic hypotension ICD Code: I95.1 Status: Acute (2) Difficulty swallowing ICD Code: R13.10 Status: Acute (3) DM type 2, uncontrolled, with lower extremity ulcer ICD Code: E11.622 Status: Chronic Assessment and Plan This is a 75-year-old male patient with past medical history which includes diabetes mellitus, GERD and depression. Patient was sent by [place] [facility]. Per evaluation after fall in a parking lot. Patient reports he has had Intermittent dizziness x 2 weeks. With frequent falls and SOB x 2 weeks. Patient also has have difficult swallowing for the past 2-3 days. Dizziness with frequent falls from orthostasis Images: CT angiogram chest reviewed negative for pulmonary embolism, US Carotids unremarkable -Continue IV hydration -Continuous cardiac telemetry -Positive orthostatic BP, will cont to check orthostatic vital signs -Colten vilchis, PT, may consider midodrine if BP does not improve NITISH, likely due to dehydration, creatine 1.61-->1.14, unknown baseline -Cont IVF hydration -Cont to trend BMP Dysphagia- with both liquids and solids -Nothing by mouth at this time -IV hydration -Consult GI, they recommend barium swallow study, study showed aspiration on thin liquids, nectar thick needed -Start PPI Diabetes mellitus uncontrolled -Accu checks before meals at bedtime with low-dose sliding scale insulin coverage and adjust as indicated Ulceration right foot medial aspect -Consult wound care Other chronic stable conditions include GERD and depression will continue home medications, change PPI to IV due to dysphagia DVT prophylaxis with SCDs and teds Written by Marj DOMINIQUE, acting as scribe for [Marilin] on 08/20/16 at 10: 10. This note was transcribed by scribe Marj DOMINIQUE. I, Dr. Amy Gaston personally performed the history, physical exam, and medical decision making; and confirmed the accuracy of the information in the transcribed note. Authenticated by Dr. Amy Gaston on 08/20/16 at 10:10. Discharge Planning Pending GI work up Problem Qualifiers (1) Difficulty swallowing: Qualified Code: R13.12 - Oropharyngeal dysphagia Marj Barnes August 20, 2016 10:37 Amy Gaston MD August 20, 2016 13:58
[2016-08-20] MEDS ORDERED: PILL SPLITTER OTHER PRN (11:00)
--- NOTE | 2016-08-20 11:25 | RADRPT ---
EXAM DATE/TIME: 08/20/2016 00:00 [facility] COMPARISON: No previous studies available for comparison. INDICATIONS : Dysphagia for 4 days, since fall FLUORO TIME: 4.3 minutes IMAGE COUNT: 0 CONTRAST: Dose as prescribed by speech pathologist. MEDICAL HISTORY : orthostasis, frequent falls SURGICAL HISTORY : cervical spine 25 years ago ENCOUNTER: Initial ACUITY: 4 - 6 days PAIN SCORE: 0/10 LOCATION: Bilateral esophagus FINDINGS: A modified barium swallow was performed with speech pathology. Patient was given a variety of liquids to swallow. For a full detailed report, see report by the speech pathologist. CONCLUSION: 1. Aspiration noted with thin liquids. See speech pathology report for full evaluation. Gabriel Ferrell MD on August 20, 2016 at 11:14 Board Certified Radiologist. This report was verified electronically.
[2016-08-20] MEDS: PANTOPRAZOLE SODIUM 40 MG VIAL IV PUSH SCH (12:17)
--- NOTE | 2016-08-20 13:04 | EC ---
Study Study Date:08/20/2016 STUDY CONCLUSIONS SUMMARY - Left ventricle: The cavity size was normal. Wall thickness was normal. Systolic function was normal. The estimated ejection fraction was in the range of 55% to 60%. Wall motion was normal; there were no regional wall motion abnormalities. - Aortic valve: Valve area: 1.26cm^2 (Vmax). If LV function is below 40, please consider prescribing an ACEI or ARB or document rationale for non-use. PROCEDURE DATA STUDY STATUS: Elective. Procedure: Transthoracic echocardiography. Image quality was poor. Scanning was performed from the parasternal, apical, and subcostal acoustic windows. Study completion: The patient tolerated the procedure well. Transthoracic echocardiography. M-mode, complete 2D, complete spectral Doppler, and color Doppler. Height: Height: 70in. Weight: Weight: 173.6lb. Body mass index: BMI: 25kg/m^2. Body surface area: BSA: 1.97m^2. Patient status: Inpatient. CARDIAC ANATOMY LEFT VENTRICLE: The cavity size was normal. Wall thickness was normal. Systolic function was normal. The estimated ejection fraction was in the range of 55% to 60%. Wall motion was normal; there were no regional wall motion abnormalities. AORTIC VALVE: Trileaflet; normal thickness leaflets. Doppler: Transvalvular velocity was within the normal range. There was no stenosis. No regurgitation. Valve area: 1.26cm^2 (Vmax). Indexed valve area: 0.64cm^2/m^2 (Vmax). AORTA: Aortic root: The aortic root was normal in size. MITRAL VALVE: Structurally normal valve. Doppler: Transvalvular velocity was within the normal range. There was no evidence for stenosis. No regurgitation. Peak gradient: 3mm Hg (D). LEFT ATRIUM: The atrium was normal in size. RIGHT VENTRICLE: The cavity size was normal. Wall thickness was normal. PULMONIC VALVE: Doppler: Transvalvular velocity was within the normal range. There was no evidence for stenosis. No regurgitation. TRICUSPID VALVE: Structurally normal valve. Doppler: Transvalvular velocity was within the normal range. No regurgitation. PULMONARY ARTERY: The main pulmonary artery was normal-sized. Systolic pressure was within the normal range. RIGHT ATRIUM: The atrium was normal in size. PERICARDIUM: There was no pericardial effusion. SYSTEMIC VEINS: Inferior vena cava: The vessel was normal in size. Patient weight: 173.6lb _Ejection fraction:_ 65-75% _Fractional shortening:_ 32% up to 5Kg 5-11.5Kg 11.6-22.9Kg 23-45Kg 45-57Kg Aortic Root 7-13 <17 13-22 17-27 17-27 LA diam 6-13 <23 24-38 33-47 37-40 RVID 10-17 7-15 7-15 7-18 8-17 LVIDd 12-22 <32 24-38 33-47 37-40 LVPW 2-4 3-6 5-7 6-8 7-8 IVS 2-4 3-6 5-7 6-8 7-8 BASIC MEASUREMENTS ADULT NORMAL Left ventricle LV internal dimension, ED, chordal *53.4 mm 43-52 level, PLAX LV internal dimension, ES, chordal *39.6 mm 23-38 level, PLAX Fractional shortening, chordal level, *26 % >29 PLAX LV posterior wall thickness, ED 8.44 mm IVS/LVPW ratio, ED 0.99 <1.3 Ventricular septum Septal thickness, ED 8.32 mm Aortic valve Leaflet separation 21 mm 15-26 Left atrium Anterior-posterior dimension 31 mm Anterior-posterior dimension index 1.57 cm/m^2 <2.2 BASIC MEASUREMENTS ADULT NORMAL Aortic valve Leaflet separation 21 mm 15-26 Aorta Root diameter, ED 31 mm 20-37 DOPPLER MEASUREMENTS ADULT NORMAL Aortic valve Peak velocity, S 93.7 cm/s Valve area, Vmax 1.26 cm^2 Valve area index, Vmax 0.64 cm^2/m^2 Mitral valve Peak E-wave velocity 86.9 cm/s Peak A-wave velocity 41 cm/s Deceleration time *67 ms 150-230 Peak gradient, D 3 mm Hg Peak E/A ratio 2.1 Pulmonic valve Peak velocity, S 67.9 cm/s LEGEND: Mean values are shown as u=mean value. Asterisk (*) madden values outside specified normal range. Prepared and signed by Pritesh Stallworth [id number]
--- NOTE | 2016-08-20 15:14 | EKG ---
Date Performed: 08/19/2016 Time Performed: 18:04:26 PTAGE: 75 years EKG: Sinus rhythm NORMAL ECG NO PREVIOUS TRACING DOCTOR: Pritesh Stallworth Interpretating Date/Time 08/20/2016 15:11:11
[2016-08-21 00:27] VITALS: BP 198/86; PULSE 105; RESP 20; O2SAT 95
[2016-08-21] MEDS: SODIUM CHLOR 0.9% 1000 ML INJ 1,000 ML IV SCH (03:33)
[2016-08-21 04:03] VITALS: BP 164/82; PULSE 89; RESP 20; TEMP 98; O2SAT 97
[2016-08-21] MEDS: DEXT 5%-NACL 0.45% 1000 ML INJ 1,000 ML IV SCH (06:25)
[2016-08-21] MEDS: INSULIN ASPART SUPPLEMENTAL SCALE SQ SCH ×4 (06:26→20:57)
[2016-08-21 07:32] VITALS: BP_SYST 115; BP_SYST 176; BP_SYST 93; BP_DIAS 57; BP_DIAS 78; BP_DIAS 85; PULSE 90; RESP 15; TEMP 97.5; O2SAT 97
[2016-08-21 07:57] LABS: BICARBONATE 27.7 MEQ/L (21.0-32.0); POTASSIUM 4.7 MEQ/L (3.5-5.1)
[2016-08-21] MEDS: VENLAFAXINE HCL XR 75 MG CAP PO SCH (08:31)
[2016-08-21] MEDS: DULoxetine HCl DR 60 MG CAP PO SCH ×2 (08:31→20:58)
[2016-08-21] MEDS: ASPIRIN EC 81 MG TABEC PO SCH (08:32)
[2016-08-21] MEDS: SODIUM CHLORIDE 0.9% FLUSH 10 ML FLUSH IV FLUSH SCH ×2 (08:32→20:58)
--- NOTE | 2016-08-21 09:39 | HHI.PR ---
Subjective Remarks Follow up dizziness, and orthostasis. Patient states he is feeling a little better. Denies any dizziness when he gets up, and states he feels good with walking with PT. Plan is for an EGD today. He does not like the thickened liquids but states he has not been coughing and does not have pain with breathing. Objective Vitals Vital Signs Date Time Temp Pulse Resp B/P Pulse Ox O2 Delivery O2 Flow Rate FiO2 08/21/16 07:32 97.5 90 15 176/85 97 115/78 93/57 08/21/16 04:03 98.0 89 20 164/82 97 08/21/16 00:27 105 20 198/86 95 08/20/16 23:00 89 08/20/16 19:57 171/89 122/64 54/60 08/20/16 19:15 98.2 92 20 108/55 08/20/16 15:38 97.7 83 16 134/87 95 08/20/16 11:24 98.6 87 16 160/94 95 107/73 I/O 08/20/16 08/20/16 08/20/16 08/21/16 08/21/16 08/21/16 07:00 15:00 23:00 07:00 15:00 23:00 Intake Total 1500 ml Output Total 350 ml 1300 ml Balance -350 ml 200 ml IV Total 1500 ml Output Urine Total 350 ml 1300 ml # Voids 1 2 Result Diagram: 08/20/16 0652 08/21/16 0615 Imaging Last Impressions Modified Barium Swallow 08/20/16 0000 Signed Impressions: Service Date/Time: August 00:00 - CONCLUSION: 1. Aspiration noted with thin liquids. See speech pathology report for full evaluation. Gabriel Ferrell MD Carotid Artery Ultrasound 08/20/16 0000 Signed Impressions: Service Date/Time: August 08:11 - CONCLUSION: 1. Minimal plaque in the carotid arteries bilaterally. No hemodynamically significant stenosis. Vertebral artery flow antegrade. Gabriel Ferrell MD Lower Extremity Ultrasound [id number]/19/[id number] Signed Impressions: Service Date/Time: Friday, August 19, 2016 18:18 - CONCLUSION: Normal examination. Mark Palmer MD Chest X-Ray [id number]/19/[id number] Signed Impressions: Service Date/Time: Friday, August 19, 2016 17:56 - CONCLUSION: No acute disease. Mark Palmer MD CT Angiography 08/19/16 1740 Signed Impressions: Service Date/Time: Friday, August 19, 2016 18:59 - CONCLUSION: No evidence of pulmonary embolism Mark Palmer MD Maxillofacial CT 08/19/16 0000 Signed Impressions: Service Date/Time: Friday, August 19, 2016 18:54 - CONCLUSION: No facial fracture. Mark Palmer MD Head CT 08/19/16 0000 Signed Impressions: Service Date/Time: Friday, August 19, 2016 18:51 - CONCLUSION: No acute intracranial findings. Mark Palmer MD Objective Remarks GENERAL: This is a 75-year-old male patient appears disheveled with ecchymosis across nasal bridge and left periorbital area, clinically appears dry with dry mucous membranes and dry skin SKIN: Scattered abrasions throughout bilateral upper and lower extremities with with ecchymosis across nasal bridge and left periorbital area, ulceration right foot medial aspect no erythema, drainage or foul odor noted HEAD: ecchymosis across nasal bridge and left periorbital area EYES: Extraocular motions intact. No scleral icterus. No injection or drainage. CARDIOVASCULAR: Regular rate and rhythm without murmurs, gallops, or rubs. RESPIRATORY: Clear to auscultation. Breath sounds equal bilaterally. No wheezes , rales, or rhonchi. GASTROINTESTINAL: Abdomen soft, non-tender, nondistended. No guarding. MUSCULOSKELETAL: No calf tenderness. NEUROLOGICAL: Awake and alert. No focal deficits noted. Motor and sensory grossly within normal limits.Normal speech. Medications and IVs Current Medications Medications (Trade) Dose Ordered Sig/Robert Route Start Time Stop Time Status Last Admin (NS Flush) 2 ml UNSCH PRN IV FLUSH 08/19/16 20:30 (NS Flush) 2 ml BID IV FLUSH 08/19/16 21:00 08/21/16 08:32 (Narcan Inj) 0.4 mg UNSCH PRN IV 08/19/16 20:30 (D50w (Vial) Inj) 25 ml UNSCH PRN IV PUSH 08/20/16 00:00 (Glucagon Inj) 1 mg UNSCH PRN OTHER 08/20/16 00:00 (Ecotrin Ec) 81 mg DAILY PO 08/20/16 09:00 08/21/16 08:32 (Cymbalta Dr) 60 mg BID PO 08/20/16 09:00 08/21/16 08:31 Venlafaxine HCl 75 mg 75 mg DAILY PO 08/20/16 09:00 08/21/16 08:31 (NS 1000 ml Inj) 1,000 ml @ 100 mls/hr Q10H IV 08/20/16 07:30 08/21/16 03:33 (Protonix Inj) 40 mg Q24H IV PUSH 08/20/16 11:00 08/20/16 12:17 (Flexeril) 5 mg Q8H PRN PO 08/20/16 10:30 (Pill Splitter) 1 ea UNSCH PRN OTHER 08/20/16 11:00 (Florinef) 0.1 mg DAILY PO 08/21/16 10:00 A/P Problem List: (1) Orthostatic hypotension ICD Code: I95.1 Status: Acute (2) Difficulty swallowing ICD Code: R13.10 Status: Acute (3) DM type 2, uncontrolled, with lower extremity ulcer ICD Code: E11.622 Status: Chronic Assessment and Plan This is a 75-year-old male patient with past medical history which includes diabetes mellitus, GERD and depression. Patient was sent by [place] clinic. Per evaluation after fall in a parking lot. Patient reports he has had Intermittent dizziness x 2 weeks. With frequent falls and SOB x 2 weeks. Patient also has have difficult swallowing for the past 2-3 days. Dizziness with frequent falls from orthostasis Images: CT angiogram chest reviewed negative for pulmonary embolism, US Carotids unremarkable -Continue IV hydration -Continuous cardiac telemetry -Positive orthostatic BP, will cont to check orthostatic vital signs -change to thigh high Colten hose, Increased PT to daily -cortisol level pending NITISH, likely due to dehydration, creatine 1.61-->1.14, unknown baseline, resolved -Cont IVF hydration -Cont to trend BMP Dysphagia- with both liquids and solids -Nothing by mouth at this time -IV hydration -Consult GI, they recommend barium swallow study, study showed aspiration on thin liquids, nectar thick needed -EGD planned for today -Cont PPI Diabetes mellitus uncontrolled -Accu checks before meals at bedtime with low-dose sliding scale insulin coverage and adjust as indicated -Hgb a1c pending Ulceration right foot medial aspect -Consult wound care: RECOMMEND TO CLEANSE WOUND TO R MEDIAL ASPECT OF FOOT WITH NORMAL SALINE. PLEASE APPLY OIL EMULSION GAUZE (ADAPTIC) CUT TO FIT OVER WOUND BED IN SINGLE LAYER. COVER WITH CALCIUM ALGINATE (MAXORB II) DRESSING CUT TO FIT OVER WOUND BED. SECURE DRESSING WITH DRY 4X4 GAUZE , ROLLED GAUZE AND TAPE. PLEASE CHANGE DRESSING EVERY TWO DAYS OR PRN IF SATURATED OR DISLODGED. Other chronic stable conditions include GERD and depression will continue home medications, change PPI to IV due to dysphagia DVT prophylaxis with SCDs and teds Discussed with Dr. Sosa Discharge Planning Pending EGD Problem Qualifiers (1) Difficulty swallowing: Qualified Code: R13.12 - Oropharyngeal dysphagia Marj Barnes August 21, 2016 09:38
[2016-08-21] MEDS ORDERED: FLUDROCORTISONE ACETATE 0.1 MG TAB PO SCH (10:00)
[2016-08-21 10:25] VITALS: BP 164/82; PULSE 90; RESP 15; TEMP 97.5; O2SAT 97
[2016-08-21] MEDS ORDERED: PROPOFOL 200 MG/20 ML AMP IV ONE (12:07)
--- NOTE | 2016-08-21 12:29 | GIPROC ---
[facility] [address] [facility]. [facility], [address] EGD WITH DILATION PROCEDURE REPORT EXAM DATE: 08/21/2016 PATIENT NAME: Gabriel Neves MR#: [id number] BIRTHDATE: 1940 ATTENDING: Nikia Bradley MD ORDER #: [id number] LIME PULLER: Juan Nichols and Radha Cardenas STATUS: inpatient INDICATIONS: The patient is a 75 yr old male here for an EGD with dilation due to dysphagia PROCEDURE PERFORMED: EGD w/ biopsy EGD w/ dilation of esophagus via guidewire MEDICATIONS: None and Per Anesthesia. TOPICAL ANESTHETIC: none CONSENT: The patient understands the risks and benefits of the procedure and understands that these risks include, but are not limited to: sedation, allergic reaction, infection, perforation and/or bleeding. Alternative means of evaluation and treatment include, among others: physical exam, x-rays, and/or surgical intervention. The patient elects to proceed with this endoscopic procedure. medical equipment was checked for proper function. Hand hygiene and appropriate measures for infection prevention was taken. After the risks, benefits and alternatives of the procedure were thoroughly explained, Informed consent was verified, confirmed and timeout was successfully executed by the treatment team. The patient was anesthetized with topical anesthesia and the Pentax [id number] endoscope was introduced through the mouth and advanced to the second portion of the duodenum. The instrument was slowly withdrawn as the mucosa was fully examined. Gastritis antrum-biopsy esophagitis dsital esophagus. Dilation was performed at gastroesophageal junction. DILATOR: SIZE(S): RESISTANCE: HEME: APPEARANCE: Dilator: Savary over guidewire Size(s): 16 COMMENT: Retroflexed views revealed a hiatal hernia ADVERSE EVENTS: There were no complications. IMPRESSIONS: 1. Gastritis antrum-biopsy esophagitis dsital esophagus 2. Retroflexed views revealed a hiatal hernia RECOMMENDATIONS: 1. Await biopsy results. Biopsy results will not be ready for 7-10 days. If you don't hear from us in two weeks, call our office for biopsy results. 2. Anti-reflux regimen 3. Ba swallow REPEAT EXAM: Return as needed for EGD with dilatation Nikia Bradley MD eSigned: Nikia Bradley MD 08/21/2016 12:29 PM cc: PATIENT NAME: Gabriel Neves Julio MR#: [id number]
[2016-08-21] MEDS ORDERED: DULAGLUTIDE 1.5 MG SQ SCH (13:00)
[2016-08-21 14:14] LABS: INDIRECT BILIRUBIN 0.3 MG/DL (0.0-0.8); TOTAL BILIRUBIN ADULT 0.4 MG/DL (0.2-1.0)
--- NOTE | 2016-08-21 14:24 | RADRPT ---
EXAM DATE/TIME: 08/21/2016 13:55 [facility] COMPARISON: No previous studies available for comparison. INDICATIONS : Dysphagia FLUORO TIME: .8 minutes IMAGE COUNT: 14 CONTRAST: 1. Liquid E-Z Paque Barium Sulfate (60% w/v, 41% w.w) MEDICAL HISTORY : orthostasis, frequent falls SURGICAL HISTORY : None. ENCOUNTER: Subsequent ACUITY: 3 days PAIN SCORE: Non-responsive. LOCATION: esphagus FINDINGS: Limited barium swallow reveals no constricting or obstructing lesions. There is marked dysmotility w ithout new significant peristalsis. There is free flow of barium across the GE junction without extr avasation or leak. CONCLUSION: Dysmotility without obstruction. Isrrael Truong MD FACR on August 21, 2016 at 14:21 Board Certified Radiologist. This report was verified electronically.
[2016-08-21] MEDS: PANTOPRAZOLE SODIUM 40 MG VIAL IV PUSH SCH (14:32)
[2016-08-21 15:40] VITALS: BP 127/60; PULSE 91; RESP 20; TEMP 97.4; O2SAT 97
[2016-08-21 17:47] LABS: HEMOGLOBIN A1a 1.3 %; HEMOGLOBIN A1b 1.1 %; HEMOGLOBIN Ao 72.2 %; HEMOGLOBIN F 2.1 %; HEMOGLOBIN LA1C 3.7 %; HEMOGLOBIN P3 5.3 %
[2016-08-21 20:16] VITALS: BP 122/61; PULSE 71; RESP 18; TEMP 98.3; O2SAT 97
[2016-08-21] MEDS ORDERED: INSULIN DETEMIR 100 UNITS/ML VIAL SQ SCH (21:00)
[2016-08-22] MEDS: SODIUM CHLOR 0.9% 1000 ML INJ 1,000 ML IV SCH (03:14)
[2016-08-22] MEDS: INSULIN ASPART SUPPLEMENTAL SCALE SQ SCH ×2 (06:17→13:11)
[2016-08-22 08:47] VITALS: BP 172/90; PULSE 90; RESP 18; TEMP 98.2; O2SAT 95
--- NOTE | 2016-08-22 09:14 | HHI.PR ---
Subjective Remarks Follow up dizziness and dysphagia. Patient states he feels great, denies any dizziness or chest pain. Able to tolerate thin liquids without coughing. EGD with dilation preformed yesterday. He states the BULMARO hose on the right foot does hurt because of his ulcer so he rather not wear it. Objective Vitals Vital Signs Date Time Temp Pulse Resp B/P Pulse Ox O2 Delivery O2 Flow Rate FiO2 08/22/16 08:47 98.2 90 18 172/90 95 08/21/16 20:16 98.3 71 18 122/61 97 08/21/16 15:40 97.4 91 20 127/60 97 08/21/16 12:22 79 16 153/94 100 08/21/16 12:17 84 16 137/84 100 08/21/16 12:12 97.3 83 16 125/88 100 08/21/16 10:25 97.5 90 15 164/82 97 I/O 08/21/16 08/21/16 08/21/16 08/22/16 08/22/16 08/22/16 06:59 14:59 22:59 06:59 14:59 22:59 Intake Total 1500 ml 450 ml 240 ml Output Total 1300 ml Balance 200 ml 450 ml 240 ml Intake Oral 240 ml IV Total 1500 ml 450 ml Output Urine Total 1300 ml # Voids 2 Result Diagram: 08/20/16 0652 08/21/16 0615 Imaging Last Impressions Barium Swallow X-Ray 08/21/16 0000 Signed Impressions: Service Date/Time: Sunday, August 21, 2016 13:55 - CONCLUSION: Dysmotility without obstruction. Isrrael Truong MD FACR Modified Barium Swallow 08/20/16 0000 Signed Impressions: Service Date/Time: August 00:00 - CONCLUSION: 1. Aspiration noted with thin liquids. See speech pathology report for full evaluation. Gabriel Ferrell MD Carotid Artery Ultrasound 08/20/16 0000 Signed Impressions: Service Date/Time: August 08:11 - CONCLUSION: 1. Minimal plaque in the carotid arteries bilaterally. No hemodynamically significant stenosis. Vertebral artery flow antegrade. Gabriel Ferrell MD Lower Extremity Ultrasound 08/19/16 1350 Signed Impressions: Service Date/Time: Friday, August 19, 2016 18:18 - CONCLUSION: Normal examination. Mark Palmer MD Chest X-Ray [id number]/[id number] Signed Impressions: Service Date/Time: Friday, August 19, 2016 17:56 - CONCLUSION: No acute disease. Mark Palmer MD CT Angiography [id number] Signed Impressions: Service Date/Time: Friday, August 19, 2016 18:59 - CONCLUSION: No evidence of pulmonary embolism Mark Palmer MD Maxillofacial CT 08/19/16 Signed Impressions: Service Date/Time: Friday, August 19, 2016 18:54 - CONCLUSION: No facial fracture. Mark Palmer MD Head CT 08/19/16 Signed Impressions: Service Date/Time: Friday, August 19, 2016 18:51 - CONCLUSION: No acute intracranial findings. Mark Palmer MD Objective Remarks GENERAL: This is a 75-year-old male patient appears disheveled with ecchymosis across nasal bridge and left periorbital area, clinically appears dry with dry mucous membranes and dry skin SKIN: Scattered abrasions throughout bilateral upper and lower extremities with with ecchymosis across nasal bridge and left periorbital area, ulceration right foot medial aspect no erythema, drainage or foul odor noted, wrapped in dressing HEAD: ecchymosis across nasal bridge and left periorbital area EYES: Extraocular motions intact. No scleral icterus. No injection or drainage. CARDIOVASCULAR: Regular rate and rhythm without murmurs, gallops, or rubs. RESPIRATORY: Clear to auscultation. Breath sounds equal bilaterally. No wheezes , rales, or rhonchi. GASTROINTESTINAL: Abdomen soft, non-tender, nondistended. No guarding. MUSCULOSKELETAL: No calf tenderness. NEUROLOGICAL: Awake and alert. No focal deficits noted. Motor and sensory grossly within normal limits.Normal speech. Medications and IVs Current Medications Medications (Trade) Dose Ordered Sig/Robert Route Start Time Stop Time Status Last Admin (NS Flush) 2 ml UNSCH PRN IV FLUSH 08/19/16 20:30 (NS Flush) 2 ml BID IV FLUSH 08/19/16 21:00 08/21/16 20:58 (Narcan Inj) 0.4 mg UNSCH PRN IV 08/19/16 20:30 (D50w (Vial) Inj) 25 ml UNSCH PRN IV PUSH 08/20/16 00:00 (Glucagon Inj) 1 mg UNSCH PRN OTHER 08/20/16 00:00 (Ecotrin Ec) 81 mg DAILY PO 08/20/16 09:00 08/21/16 08:32 (Cymbalta Dr) 60 mg BID PO 08/20/16 09:00 08/21/16 20:58 Venlafaxine HCl 75 mg 75 mg DAILY PO 08/20/16 09:00 08/21/16 08:31 (NS 1000 ml Inj) 1,000 ml @ 70 mls/hr [id number] IV 08/20/16 07:30 08/21/16 03:33 (Protonix Inj) 40 mg Q24H IV PUSH 08/20/16 11:00 08/21/16 14:32 (Flexeril) 5 mg Q8H PRN PO 08/20/16 10:30 (Pill Splitter) 1 ea UNSCH PRN OTHER 08/20/16 11:00 (Levemir Inj) 25 units HS SQ 08/21/16 21:00 08/21/16 20:56 Patient Own Medication PT OWN MED: TRULIC... Q7D SQ 08/21/16 13:00 Hold A/P Problem List: (1) Orthostatic hypotension ICD Code: I95.1 Status: Acute (2) Difficulty swallowing ICD Code: R13.10 Status: Acute (3) DM type 2, uncontrolled, with lower extremity ulcer ICD Code: E11.622 Status: Chronic Assessment and Plan This is a 75-year-old male patient with past medical history which includes diabetes mellitus, GERD and depression. Patient was sent by [place] clinic. Per evaluation after fall in a parking lot. Patient reports he has had Intermittent dizziness x 2 weeks. With frequent falls and SOB x 2 weeks. Patient also has have difficult swallowing for the past 2-3 days. Dizziness with frequent falls from orthostasis, due to dehydration and uncontrolled diabetes, A1C 14.8 Images: CT angiogram chest reviewed negative for pulmonary embolism, US Carotids unremarkable -Continue oral hydration -Continuous cardiac telemetry -Positive orthostatic BP, will cont to check orthostatic vital signs -cont to wear thigh high Bulmaro hose, Cont PT daily while in hospital -cortisol level WNL -Discussed with patient importance of controlling diabetes, wear compression stockings daily, patient understands NITISH, likely due to dehydration, creatine 1.61-->1.14-->.07, unknown baseline, resolved -D/C IVF, encourage PO -Cont to trend BMP Dysphagia- with both liquids and solids, resolved -IV hydration -Consult GI, they recommend barium swallow study, study showed aspiration on thin liquids, nectar thick needed, post dilation barium swallow showed dysmotility without obstruction, GI recommends follow up 2 weeks -EGD with dilation 08/21 -Cont PPI Diabetes mellitus uncontrolled -Accu checks before meals at bedtime with low-dose sliding scale insulin coverage and adjust as indicated -Hgb a1c 14.5 -Increase home Levemir to 30 units HS, and cont trulicity weekly, add medium sliding scale with meals. patient understands changes Ulceration right foot medial aspect -Consult wound care: RECOMMEND TO CLEANSE WOUND TO R MEDIAL ASPECT OF FOOT WITH NORMAL SALINE. PLEASE APPLY OIL EMULSION GAUZE (ADAPTIC) CUT TO FIT OVER WOUND BED IN SINGLE LAYER. COVER WITH CALCIUM ALGINATE (MAXORB II) DRESSING CUT TO FIT OVER WOUND BED. SECURE DRESSING WITH DRY 4X4 GAUZE , ROLLED GAUZE AND TAPE. PLEASE CHANGE DRESSING EVERY TWO DAYS OR PRN IF SATURATED OR DISLODGED. Other chronic stable conditions include GERD and depression will continue home medications, change PPI to IV due to dysphagia DVT prophylaxis with SCDs and teds Discharge Planning Today Problem Qualifiers (1) Difficulty swallowing: Qualified Code: R13.12 - Oropharyngeal dysphagia Marj Barnes August 22, 2016 09:14
[2016-08-22 10:01] LABS: BICARBONATE 27.9 MEQ/L (21.0-32.0); POTASSIUM 4.1 MEQ/L (3.5-5.1)
[2016-08-22] MEDS: DULoxetine HCl DR 60 MG CAP PO SCH (10:01)
[2016-08-22] MEDS: PANTOPRAZOLE SODIUM 40 MG VIAL IV PUSH SCH (10:01)
[2016-08-22] MEDS: SODIUM CHLORIDE 0.9% FLUSH 10 ML FLUSH IV FLUSH SCH (10:02)
[2016-08-22] MEDS: VENLAFAXINE HCL XR 75 MG CAP PO SCH (10:02)
[2016-08-22] MEDS: ASPIRIN EC 81 MG TABEC PO SCH (10:11)
[2016-08-22 12:31] VITALS: PULSE 89
[2016-08-22] MEDS ORDERED: INSULIN HUMAN REGULAR 1,000 UNITS/10 ML VIAL IV PUSH ONE (15:00)
[2016-08-22] MEDS ORDERED: SODIUM CHLORID 0.9% 500 ML INJ 500 ML IV ONE (15:00)
[2016-08-22] MEDS ORDERED: INSULIN ASPART SUPPLEMENTAL SCALE SQ SCH (16:00)
[2016-08-22 16:03] VITALS: BP 140/72; PULSE 89; RESP 18; TEMP 98.2; O2SAT 96
[2016-08-22] MEDS ORDERED: LEVEMIR SQ (16:23)
[2016-08-22] MEDS ORDERED: NOVOLOGP2 SQ (16:23)
[2016-08-22] MEDS ORDERED: OMEP40CA2 PO (16:23)
--- NOTE | 2016-08-22 16:26 | HHI.DCPOC ---
Discharge Care Plan Diagnosis: (1) DM type 2, uncontrolled, with lower extremity ulcer (2) Orthostatic hypotension (3) Dizziness Goals to Promote Your Health * To prevent worsening of your condition and complications * To maintain your health at the optimal level Directions to Meet Your Goals Take your medications as prescribed Follow your dietary instruction Follow activity as directed Keep your appointments as scheduled Take your immunizations and boosters as scheduled If your symptoms worsen call your PCP, if no PCP go to Urgent Care Center or Emergency Room Smoking is Dangerous to Your Health. Avoid second hand smoke Call the 24-hour hour crisis hotline for domestic abuse at Marj Barnes August 22, 2016 16:26
--- NOTE | 2016-08-22 16:31 | HHI.DS ---
cc: Nikia Bradley MD Discharge Summary Admission Date August 19, 2016 at 20:21 Discharge Date: August 22, 2016 Admitting Diagnosis difficulty in swallowing. Renal insufficiency. Hyperglycemia. (1) Orthostatic hypotension ICD Code: I95.1 (2) Difficulty swallowing ICD Code: R13.10 Diagnosis: Secondary (3) DM type 2, uncontrolled, with lower extremity ulcer ICD Code: E11.622 Diagnosis: Principal Procedures EGD with dilation 08/21/16 Brief History - From Admission This is a 75-year-old male patient with past medical history which includes diabetes mellitus, GERD and depression. Patient was sent by [place] clinic. Per evaluation after fall in a parking lot. Patient reports he has had Intermittent dizziness x 2 weeks. Feels as though he is spinning inside, does not feel as though the room is spinning. Dizziness only occurs with standing. Patient also reports associated shortness of breath. Patient denies associated ear discharge, ringing in the ears, N/V or diaphoresis. Patient report he had chest pain after he fell and hit the ground. Chest pain described as a stabbing sensation lasting seconds then resolving spontaneously. Patient reports that he gets so dizzy that has fallen down several times. Patient estimates 20 falls over the past two weeks. Today patient got dizzy walking in a parking lot and fell face forward. Patient denies LOC. Patient denies blood in stool or black color stools. Patient is a diabetic and reports his blood sugar have been running high 200- 300 lately. Glucose upon arrival 312 Patient does report that his BP is usually low when he checks if after his falls , reported SBP as been as low as 60's. Patient also has have difficult swallowing for the past 2-3 days. Patient reports he is unable to swallow liquids from a cup he has to use a straw. Patient is unable to get solids down. Patient reports he often coughs after trying to eat solids or drink liquids. Patient reports he has never had EGD or colonoscopy. Patient has had unilateral lower extremity edema R>L for the past 5 years. Patient also seeing a [place] flight dynamicist for wound right foot medial surface, had I& D yesterday. Patient denies fevers chills cough congestion nausea vomiting diarrhea constipation. CBC/BMP: 08/20/16 0652 08/22/16 0900 Significant Findings Laboratory Tests Test 08/19/16 08/20/16 08/21/16 08/21/16 17:10 06:52 06:15 15:58 Hemoglobin 11.6 GM/DL 12.3 GM/DL (13.0-17.0) (13.0-17.0) Hematocrit 36.8 % 38.3 % (39.0-51.0) (39.0-51.0) Mean Corpuscular Volume 79.2 FL 78.8 FL (80.0-100.0) (80.0-100.0) Mean Corpuscular Hemoglobin 25.1 PG 25.4 PG (27.0-34.0) (27.0-34.0) Mean Corpuscular Hemoglobin 31.6 % Concent (32.0-36.0) Neutrophils (%) (Auto) 70.4 % (16.0-70.0) Monocytes (%) (Auto) 11.7 % 9.3 % (0.0-8.0) (0.0-8.0) Monocytes # (Auto) 1.1 TH/MM3 (0-0.9) Sodium Level 134 MEQ/L (136-145) Chloride Level 96 MEQ/L (98-107) Blood Urea Nitrogen 38 MG/DL (7-18) 26 MG/DL (7-18) Creatinine 1.61 MG/DL (0.60-1.30) Estimat Glomerular Filtration 42 ML/MIN (>89) 63 ML/MIN (>89) 68 ML/MIN (>89) Rate Random Glucose 311 MG/DL 229 MG/DL 292 MG/DL (74-106) (74-106) (74-106) Troponin I LESS THAN 0.02 NG/ML (0.02-0.05) Vitamin B12 Level GREATER THAN 2000 PG/ML (193-986) Aspartate Amino Transf 11 U/L (15-37) (AST/SGOT) Albumin 2.6 GM/DL (3.4-5.0) Hemoglobin A1c 14.5 % (4.3-6.0) Test 08/22/16 09:00 Estimat Glomerular Filtration 87 ML/MIN (>89) Rate Random Glucose 164 MG/DL (74-106) Imaging Last Impressions Barium Swallow X-Ray 08/21/16 Signed Impressions: Service Date/Time: Sunday, August 21, 2016 13:55 - CONCLUSION: Dysmotility without obstruction. Isrrael Truong MD FACR Modified Barium Swallow 08/20/16 Signed Impressions: Service Date/Time: August 00:00 - CONCLUSION: 1. Aspiration noted with thin liquids. See speech pathology report for full evaluation. Gabriel Ferrell MD Carotid Artery Ultrasound 08/20/16 Signed Impressions: Service Date/Time: August 08:11 - CONCLUSION: 1. Minimal plaque in the carotid arteries bilaterally. No hemodynamically significant stenosis. Vertebral artery flow antegrade. Gabriel Ferrell MD Lower Extremity Ultrasound [id number] Signed Impressions: Service Date/Time: Friday, August 19, 2016 18:18 - CONCLUSION: Normal examination. Mark Palmer MD Chest X-Ray [id number] Signed Impressions: Service Date/Time: Friday, August 19, 2016 17:56 - CONCLUSION: No acute disease. Mark Palmer MD CT Angiography [id number] Signed Impressions: Service Date/Time: Friday, August 19, 2016 18:59 - CONCLUSION: No evidence of pulmonary embolism Mark Palmer MD Maxillofacial CT 08/19/16 Signed Impressions: Service Date/Time: Friday, August 19, 2016 18:54 - CONCLUSION: No facial fracture. Mark Palmer MD Head CT 08/19/16 Signed Impressions: Service Date/Time: Friday, August 19, 2016 18:51 - CONCLUSION: No acute intracranial findings. Mark Palmer MD PE at Discharge GENERAL: This is a 75-year-old male patient in [place] SKIN: Scattered abrasions throughout bilateral upper and lower extremities with with ecchymosis across nasal bridge and left periorbital area, ulceration right foot medial aspect no erythema, drainage or foul odor noted, wrapped in dressing HEAD: ecchymosis across nasal bridge and left periorbital area EYES: Extraocular motions intact. No scleral icterus. No injection or drainage. CARDIOVASCULAR: Regular rate and rhythm without murmurs, gallops, or rubs. RESPIRATORY: Clear to auscultation. Breath sounds equal bilaterally. No wheezes , rales, or rhonchi. GASTROINTESTINAL: Abdomen soft, non-tender, nondistended. No guarding. MUSCULOSKELETAL: No calf tenderness. NEUROLOGICAL: Awake and alert. No focal deficits noted. Motor and sensory grossly within normal limits.Normal speech. Hospital Course Presented with Dizziness with frequent falls from orthostasis, due to dehydration and uncontrolled diabetes, A1C 14.8, cortisol level normal -IV hydration given with much improvement, and then switched to PO hydration -Telemetry was monitored throughout stay without any cardiac events -Positive orthostatic BP, improved with PT daily and hydration -Thigh high Col[place] hose applied and pt verbalizes understanding of wearing them daily -PT while in hospital, recommended he could go home and use his walker he has at home -Discussed with patient importance of controlling diabetes to improve orthostasis, patient verbalizes he understands Patient had an Acute Kindney Injury, due to dehydration, creatine 1.61-->1.14--> .07, unknown baseline, improved with IV hydration Patient also presented with Dysphagia- with both liquids and solids -Consult GI, they recommend barium swallow study, study showed aspiration on thin liquids, nectar thick needed, then patient underwent EGD with dilation, post dilation barium swallow showed dysmotility without obstruction, GI recommends follow up 2 weeks, cont PPI Diabetes mellitus uncontrolled on admission, more controlled while in hospital with SSI and long acting. AM glucose 164 -Increase home Levemir to 30 units HS, and cont trulicity weekly, add medium sliding scale with meals. patient verbalizes understands changes, Strict sliding scale printed and given to patient at discharge. Patient presented with chronic non infected Ulceration right foot medial aspect was evaluated by wound care and RECOMMEND TO CLEANSE WOUND TO R MEDIAL ASPECT OF FOOT WITH NORMAL SALINE. PLEASE APPLY OIL EMULSION GAUZE (ADAPTIC) CUT TO FIT OVER WOUND BED IN SINGLE LAYER. COVER WITH CALCIUM ALGINATE (MAXORB II) DRESSING CUT TO FIT OVER WOUND BED. SECURE DRESSING WITH DRY 4X4 GAUZE , ROLLED GAUZE AND TAPE. PLEASE CHANGE DRESSING EVERY TWO DAYS OR PRN IF SATURATED OR DISLODGED. Discussed with RN to give supplies for patient at discharge, patient verbalizes understanding of dressing changes. Discussed patient care with Dr. Sosa Pt Condition on Discharge: Stable Discharge Disposition: Discharge Home Discharge Time: > 30 minutes Discharge Instructions DIET: Follow Instructions for: Diabetic Diet Speech Therapy-Diet Recommends: Regular Activities you can perform: Regular-No Restrictions Other Activity Instructions: Wear compression stockings daily, slow movement with rising from laying down to standing. Follow up Referrals: Gastroenterology - 2 Weeks with Nikia Bradley MD PCP Follow-up - 2-3 Days New Medications: Insulin Aspart Inj (Novolog Inj) 1,000 Unit/10 Ml Vial 2-12 UNITS SQ ACHS sugars 150-199,(2) units sugars 200-249,(4) units sugars 250- 299,(7) units; sugars 300-349,(10) units; sugars > than 349,(12)units Blood Sugar Management #10 Ref 0 ML Omeprazole (Omeprazole) 40 Mg Cap 40 MG PO DAILY gastritis #30 Ref 0 CAP Insulin Detemir Inj (Levemir Inj) 1,000 unit/ 10 ML Vial 30 UNITS SQ HS glucose management Days 30 INJECTION Continued Medications: Aspirin DR (Aspirin EC) 81 Mg Tabdr 81 MG PO DAILY Ref 0 TAB Collagenase Topical (Santyl Topical) 250 Unit/Gm Oint 1 APPLIC TOPICAL DAILY Wound Management #15 Ref 0 GM Cyanocobalamin (B-12) 5,000 Mcg Cap 5000 MCG PO DAILY Nutritional Supplement #1 Ref 0 BOTTLE Dulaglutide Inj (Trulicity Inj) 1.5 Mg/0.5 Ml Pen 1.5 MG SQ Q7D ON FRIDAYS Blood Sugar Management #4 Ref [address] (Cymbalta DR) 60 Mg Capdr 60 MG PO BID MOOD #30 Ref 0 CAP Lactic Acid (Ammonium Lactate) (Ammonium Lactate) 12% Lotn 1 APPLIC TOPICAL BID PRN DRY SKIN #225 Ref 0 ML Metformin (Metformin) 500 Mg Tab 500 MG PO BIDPC With meals Blood Sugar Management #60 Ref 0 TAB Venlafaxine ER 24 HR (Venlafaxine ER 24 HR) 75 Mg Cap 75 MG PO DAILY MOOD #30 Ref 0 CAP Discontinued Medications: Insulin Aspart Inj (Novolog Inj) 1,000 Unit/10 Ml Vial 0 SQ TIDAC Sliding Scale as directed. Blood Sugar Management #10 Ref 0 ML Insulin Glargine Inj (Lantus Inj) 1,000 Unit/10 Ml Vial 25 UNITS SQ HS Blood Sugar Management Ref 0 VIAL Omeprazole (Prilosec) 20 Mg Cap 20 MG PO DAILY STOMACH ACID #30 Ref 0 CAP Additional Information Increase Levemir to 30 units HS, use medium sliding scale with meals. Follow up with PCP for future adjustments Increase omeprazole to 40 daily and follow up with GI Marj Barnes August 22, 2016 16:31
[2016-08-22 23:54] LABS: STRIATED MUCLE AB TITER ND (<1:40)
[2016-08-24 19:53] LABS: ACETYLCHOLINE REC BINDING LESS THAN 0.30 nmol/L (())
== END 2016-08-22 18:03 | disposition home or self-care (01) ==
LOC: NEPE 16:41 → NEDA 20:21 → NEPGCP 22:05
PROVIDERS: ADMIT Internal Medicine; ATTEND Internal Medicine
DX: R13.10 Dysphagia, unspecified (principal); K29.50 Unspecified chronic gastritis without bleeding; K21.0 Gastro-esophageal reflux disease with esophagitis; K44.9 Diaphragmatic hernia without obstruction or gangrene; N17.9 Acute kidney failure, unspecified; E11.40 Type 2 diabetes mellitus with diabetic neuropathy, unspecified; E86.0 Dehydration; F32.9 Major depressive disorder, single episode, unspecified; I95.1 Orthostatic hypotension; E11.65 Type 2 diabetes mellitus with hyperglycemia; R29.6 Repeated falls; E11.621 Type 2 diabetes mellitus with foot ulcer; R60.0 Localized edema; E11.22 Type 2 diabetes mellitus with diabetic chronic kidney disease; N18.9 Chronic kidney disease, unspecified; F41.9 Anxiety disorder, unspecified; F03.90 Unspecified dementia, unspecified severity, without behavioral disturbance, psychotic disturbance, mood disturbance, and anxiety; Z79.82 Long term (current) use of aspirin; Z88.1 Allergy status to other antibiotic agents; Z79.4 Long term (current) use of insulin
CPT/HCPCS: 43239; 43248; 70450; 70486; 71010; 71275; 74230; 80048; 80076; 81001; 82533; 82550; 82607; 82746; 82948; 83036; 83519; 83735; 83880; 84484; 85025; 85610; 85730; 86255; 88305; 88312; 92611; 93005; 93306; 93880; 93971; 96360; 97110; 97116; 97162; 97530; 99285; C1769; C9113; G0378; G8987; G8988; J1815; J7030; J7040; J7042; Q9967

== ENCOUNTER 2017-02-10 11:40 | Inpatient (IN) | payer OTHER, MEDICARE ==
[~2017-02-10] VITALS: Ht 172.7 cm; Wt 76.0 kg
[~2017-02-10 11:40] MED LIST: AMMO12LO TOPICAL; ASPI81TA23 PO; COLL30T TOPICAL; CYAN1CAP PO; CYMB60CA PO; DULA0.5I SQ; LEVEMIR SQ; METF500T PO; NOVOLOGP2 SQ; OMEP40CA2 PO; VENL75CA44 PO
[2017-02-10 11:41] VITALS: BP 91/50; PULSE 108; RESP 18; TEMP 99.1; O2SAT 97
--- NOTE | 2017-02-10 12:27 | RADRPT ---
EXAM DATE/TIME: 02/10/2017 12:02 [facility] COMPARISON: No previous studies available for comparison. INDICATIONS : Fall. Chest pain. MEDICAL HISTORY : Cardiovascular disease. Diabetes. SURGICAL HISTORY : None. ENCOUNTER: Initial ACUITY: 3 days PAIN SCORE: 7/10 LOCATION: Bilateral chest FINDINGS: PA and lateral views of the chest demonstrate the lungs to be symmetrically aerated without evidence of mass, infiltrate or effusion. The cardiomediastinal contours are unremarkable. There are fracture s of the eighth and ninth lateral right ribs. There may be mild callus formation. There is no pneumot horax. CONCLUSION: 1. Fractures of the right lateral eighth and ninth ribs which may be acute to subacute. 2. No pneumothorax or lung contusion. Edward Sotelo MD on February 10, 2017 at 12:24 Board Certified Radiologist. This report was verified electronically.
[2017-02-10 12:28] LABS: AUTOMATED NEUTROPHIL # 11.3 TH/MM3 (1.8-7.7); BASOPHIL # 0.1 TH/MM3 (0-0.2); BASOPHIL % 0.7 % (0.0-2.0); EOSINOPHIL # 0.2 TH/MM3 (0-0.4); EOSINOPHIL % 1.1 % (0.0-4.0); HEMATOCRIT 35.2 % (39.0-51.0); HEMOGLOBIN 11.1 GM/DL (13.0-17.0); LYMPH % 12.6 % (9.0-44.0); LYMPHOCYTE # 1.8 TH/MM3 (1.0-4.8); MEAN CELL VOLUME 80.1 FL (80.0-100.0); MEAN CORPUSCULAR HEMOGLOBIN 25.2 PG (27.0-34.0); MEAN CORPUSCULAR HGB CONC 31.4 % (32.0-36.0); MEAN PLATELET VOLUME 7.2 FL (7.0-11.0); MONO % 7.7 % (0.0-8.0); MONOCYTE # 1.1 TH/MM3 (0-0.9); NEUT % 77.9 % (16.0-70.0); PLATELET COUNT 527 TH/MM3 (150-450); WHITE BLOOD COUNT 14.4 TH/MM3 (4.0-11.0)
[2017-02-10 12:37] LABS: PROTHROMBIN TIME - PATIENT 11.1 SEC (9.8-11.6)
[2017-02-10] MEDS ORDERED: SODIUM CHLOR 0.9% 1000 ML INJ 1,000 ML IV SCH (12:39)
--- NOTE | 2017-02-10 12:39 | PD ---
HPI Chief Complaint: Pain: Acute or Chronic Time Seen by Provider: 12:20 Travel History International Travel<30 days: No Contact w/Intl Traveler<30days: No Traveled to known affect area: No History of Present Illness HPI 76-year-old male presents emergency department, sent by the [facility], with complaint of right-sided rib cage pain after falling to his right side on Wednesday. Since he has history of hypotension when he stands up and history of falls secondary to this. Says he stood up and his legs gave out and he fell. Patient is also currently being treated for an ulcer to his right great toe times one month. He saw the drill rig operator at the [facility] this morning for debriding. He does for debriding once weekly. He is not on any current antibiotics. Says he had an x-ray of the foot one month ago and was told there was no infection in the bone. He denies hitting his head or loss of consciousness. Denies neck pain or back pain. Denies hemoptysis, hematemesis, vomiting. Denies anticoagulant therapy. Denies fever, abdominal pain, dysuria, change in stool. Denies hematuria or hematochezia. Denies chest pain. Reports feeling short of breath after the fall. Reports weakness and feeling tired. Reports 20 pound weight loss in 2 months. Has been taking the Tylenol with codeine for symptom management. Pain is worse with movement. Pain is decreased when lying flat on his back. Symptoms are moderate to severe. Allergies to amoxicillin and clavulanic acid. Dr. Steven at the [facility] is his primary care provider. History of hypotension, hypertension, and type 2 diabetes mellitus. Has no other medical complaints. No other modifying factors or associated signs and symptoms. PFSH Past Medical History Anemia: Yes Asthma: No Blood Disorders: No Anxiety: No Depression: No Heart Rhythm Problems: No Cancer: No Cardiovascular Problems: No High Cholesterol: No Chemotherapy: No Chest Pain: No Congestive Heart Failure: No COPD: No Dementia: Yes Diabetes: Yes Diminished Hearing: No Endocrine: No GERD: Yes Genitourinary: No Immune Disorder: No Musculoskeletal: No Neurologic: No Psychiatric: No Reproductive: No Respiratory: No Radiation Therapy: No Sleep Apnea: No Thyroid Disease: No Social History Alcohol Use: No Tobacco Use: No Substance Use: No Allergies-Medications (Allergen,Severity, Reaction): Coded Allergies: amoxicillin (Unverified Adverse Reaction, Unknown, kidney problem, 11/24/16 ) clavulanic acid (Unverified Adverse Reaction, Unknown, kidney problem, ) Reported Meds & Prescriptions Reported Meds & Active Scripts Active Omeprazole 40 Mg Cap 40 Mg PO DAILY Reported Vitamin B-1 (Thiamine HCl) 100 Mg Tab 100 Mg PO DAILY Ferrous Sulfate 325 Mg (65 Mg Iron) Tablet 325 Mg PO BIDPC Lisinopril 5 Mg Tab 5 Mg PO DAILY Lyrica (Pregabalin) 75 Mg Cap 75 Mg PO DAILY Lantus Solostar Pen Inj (Insulin Glargine) 300 Unit/3 Ml Pen 25 Units SQ HS Vitamin D-1000 (Cholecalciferol) 1,000 Unit Tab 1,000 Units PO TID Novolog Flexpen Inj (Insulin Aspart) 300 Unit/3 Ml Pen 10 Units SQ TID Metformin (Metformin HCl) 500 Mg Tab 500 Mg PO BIDPC With meals Venlafaxine ER 24 HR (Venlafaxine HCl) 75 Mg Cap 75 Mg PO DAILY Cymbalta DR (Duloxetine HCl) 60 Mg Capdr 60 Mg PO BID Review of Systems Except as stated in HPI: all other systems reviewed are Neg Physical Exam Narrative GENERAL: Thin, elderly, male patient, in no acute distress SKIN: Warm and dry. Pale. HEAD: Atraumatic. Normocephalic. No facial or scalp contusions, abrasions, lacerations. EYES: Pupils equal and round. No scleral icterus. No injection or drainage. ENT: Mucosa pink and moist. Airway patent. NECK: Trachea midline. Patient moving freely. No midline tenderness on palpation of the cervical spine. Active rotation greater than 45 left and right. CHEST: Tenderness on palpation to the right lateral lower rib cage at approximately the eighth to 12th ribs; without deformity or crepitance. No retractions or use of accessory muscles. CARDIOVASCULAR: Regular rate and rhythm. No murmur appreciated. RESPIRATORY: No accessory muscle use. Clear to auscultation. Breath sounds equal bilaterally. GASTROINTESTINAL: Abdomen soft, tenderness to RUQ, nondistended. Hepatic and splenic margins not palpable. Bowel sounds are active 4 quadrants. MUSCULOSKELETAL: Right lower extremity is edematous with some minimal erythema noted to the right lower leg; right foot, including the toes, is edematous; right great toe with open wounds. Right lower extremity is supple and non- tense with 2+ pedal pulses and with decreased sensation. No obvious deformities. No clubbing. No cyanosis. No edema. BACK: No midline point tenderness on palpation of the thoracic or lumbar spine. NEUROLOGICAL: Awake and alert. Oriented 3. No obvious cranial nerve deficits. Motor grossly within normal limits. Normal speech. PSYCHIATRIC: Appropriate mood and affect; insight and judgment normal. Data Data Last Documented VS Vital Signs Date Time Temp Pulse Resp B/P (MAP) Pulse Ox O2 Delivery O2 Flow Rate FiO2 02/10/17 14:30 82 16 154/76 (102) 98 Room Air 02/10/17 11:41 99.1 Orders Orders Complete Blood Count With Diff (02/10/17 11:49) Basic Metabolic Panel (Bmp) (02/10/17 11:49) Chest, Pa & Lat (02/10/17 ) Coag Profile (02/10/17 11:50) Foot, Complete ([id number]) (02/10/17 12:39) Lactic Acid (02/10/17 12:39) Urinalysis - C+S If Indicated (02/10/17 12:39) Ct Abd/Pel W Iv Contrast(Rout) (02/10/17 12:39) Iv Access Insert/Monitor (02/10/17 12:39) Morphine Inj (Morphine Inj) (02/10/17 12:45) Sodium Chlor 0.9% 1000 Ml Inj (Ns 1000 M (02/10/17 12:39) Sodium Chloride 0.9% Flush (Ns Flush) (02/10/17 12:45) Blood Culture (02/10/17 12:39) Ecg Monitoring (02/10/17 12:39) Oximetry (02/10/17 12:39) Hepatic Functional Panel (02/10/17 13:36) Cath For Specimen (02/10/17 13:41) Iohexol 350 Inj (Omnipaque 350 Inj) (02/10/17 13:44) Vancomycin Inj (Vancomycin Inj) (02/10/17 14:45) Resp Incentive Spirometry (02/10/17 ) Admit Order (Ed Use Only) (02/10/17 18:29) Labs Laboratory Tests Test 02/10/17 12:00 02/10/17 13:00 02/10/17 14:15 White Blood Count 14.4 TH/MM3 Red Blood Count 4.40 MIL/MM3 Hemoglobin 11.1 GM/DL Hematocrit 35.2 % Mean Corpuscular Volume 80.1 FL Mean Corpuscular Hemoglobin 25.2 PG Mean Corpuscular Hemoglobin Concent 31.4 % Red Cell Distribution Width 17.0 % Platelet Count 527 TH/MM3 Mean Platelet Volume 7.2 FL Neutrophils (%) (Auto) 77.9 % Lymphocytes (%) (Auto) 12.6 % Monocytes (%) (Auto) 7.7 % Eosinophils (%) (Auto) 1.1 % Basophils (%) (Auto) 0.7 % Neutrophils # (Auto) 11.3 TH/MM3 Lymphocytes # (Auto) 1.8 TH/MM3 Monocytes # (Auto) 1.1 TH/MM3 Eosinophils # (Auto) 0.2 TH/MM3 Basophils # (Auto) 0.1 TH/MM3 CBC Comment DIFF FINAL Differential Comment Prothrombin Time 11.1 SEC Prothromb Time International Ratio 1.0 RATIO Activated Partial Thromboplast Time 31.0 SEC Blood Urea Nitrogen 26 MG/DL Creatinine 1.20 MG/DL Random Glucose 421 MG/DL Calcium Level 9.1 MG/DL Sodium Level 131 MEQ/L Potassium Level 5.6 MEQ/L Chloride Level 95 MEQ/L Carbon Dioxide Level 29.0 MEQ/L Anion Gap 7 MEQ/L Estimat Glomerular Filtration Rate 59 ML/MIN Total Bilirubin 0.3 MG/DL Direct Bilirubin 0.1 MG/DL Indirect Bilirubin 0.2 MG/DL Aspartate Amino Transf (AST/SGOT) 17 U/L Alanine Aminotransferase (ALT/SGPT) 21 U/L Alkaline Phosphatase 102 U/L Total Protein 8.0 GM/DL Albumin 2.3 GM/DL Lactic Acid Level 1.4 mmol/L Urine Color YELLOW Urine Turbidity CLEAR Urine pH 5.5 Urine Specific [place] 1.037 Urine Protein TRACE mg/dL Urine Glucose (UA) 1000 mg/dL Urine Ketones 10 mg/dL Urine Occult Blood NEG Urine Nitrite NEG Urine Bilirubin NEG Urine Urobilinogen LESS THAN 2.0 MG/DL Urine Leukocyte Esterase NEG Urine RBC 1 /hpf Urine WBC 1 /hpf Microscopic Urinalysis Comment CULT NOT INDICATED MDM Medical Decision Making Medical Screen Exam Complete: Yes Emergency Medical Condition: Yes Medical Record Reviewed: Yes Differential Diagnosis Wound infection affect, cellulitis, osteomyelitis, fall, rib fracture, liver contusion, liver laceration, abdominal contusion Narrative Course 1246: Chest x-ray concludes: Chest X-Ray 02/10/17 0000 Signed Impressions: Service Date/Time: Friday, February 10, 2017 12:02 - CONCLUSION: 1. Fractures of the right lateral eighth and ninth ribs which may be acute to subacute. 2. No pneumothorax or lung contusion. Edward Sotelo MD WBC 14.4. Coags unremarkable. 1421: Right foot x-ray concludes: Foot X-Ray 02/10/17 1239 Signed Impressions: Service Date/Time: Friday, February 10, 2017 13:08 - CONCLUSION: 1. Diffuse soft tissue swelling. 2. Suspect osteomyelitis of the distal phalanx of the great toe and the distal and middle phalanx of the second toe. 3. Questionable osteomyelitis of the distal phalanx of the third toe. Brian Sanchez MD Lactic acid 1.4. Glucose 421. Sodium 131. Potassium 5.6. BUN 26. 1506: CT abdomen/pelvis concludes: 1. Acute fractures involving the lateral aspects of the right tenth and eleventh ribs. 2. Ill-defined area of decreased attenuation involving the medial aspect of the right lobe of the liver consistent with possible focal laceration and minimal perihepatic hematoma. Clinical correlation is recommended. 3. Ill-defined area of decreased attenuation within the dome of the liver in the expected region of the previously noted low density lesion consistent with hemangioma filling in or possible resolution of previous cyst. 4. Chronic calcific pancreatitis with marked atrophy of the pancreatic parenchyma and marked dilatation of the main pancreatic duct. 5. Right inguinal lymphadenopathy of indeterminate significance. 6. Degenerative changes and scoliosis if the thoracolumbar spine. 7. Tiny bilateral renal cysts. 8. Minimal ascites within the abdomen and pelvis. 9. Tiny right pleural effusion. Call placed for patient admission. 1542: I spoke with Dr. Kim and he is coming to the bedside to evaluate the patient. 1830: Dr. Kim at bedside. Report given and patient will be admitted to Dr. Kim. Physician Communication Physician Communication Dr. Gamboa, Trauma Diagnosis Primary Impression: Fall Qualified Codes: W19.XXXA - Unspecified fall, initial encounter Additional Impressions: Right rib fracture Qualified Codes: S22.41XA - Multiple fractures of ribs, right side, initial encounter for closed fracture Osteomyelitis of toe of right foot Liver hematoma Qualified Codes: S36.112A - Contusion of liver, initial encounter Liver laceration Qualified Codes: S36.113A - Laceration of liver, unspecified degree, initial encounter Admitting Information Admitting Physician Requests: Admit Emerita Zimmerman Feb 10, 2017 12:39
[2017-02-10] MEDS ORDERED: SODIUM CHLORIDE 0.9% FLUSH 10 ML FLUSH IV FLUSH PRN ×2 (12:45→18:45)
[2017-02-10] MEDS ORDERED: MORPHINE SULFATE 4 MG/ML INJ IV PUSH ONE (12:45)
[2017-02-10 12:50] LABS: CALCIUM 9.1 MG/DL (8.5-10.1); CREATININE 1.2 MG/DL (0.60-1.30)
[2017-02-10 13:00] VITALS: BP 124/79; PULSE 89; RESP 18; O2SAT 96
[2017-02-10] MEDS ORDERED: IOHEXOL 350 MG/ML 10 ML VIAL (for RAD DIAG) IVCONTRAST ONE (13:44)
--- NOTE | 2017-02-10 13:45 | RADRPT ---
EXAM DATE/TIME: 02/10/2017 13:08 [facility] COMPARISON: No previous studies available for comparison. INDICATIONS : Open ulcer tip of great toe, ulcers between toes, swelling with drainage between toes. MEDICAL HISTORY : Diabetes mellitus type II. SURGICAL HISTORY : None. ENCOUNTER: Initial ACUITY: 2 weeks PAIN SCORE: 10/10 LOCATION: Left foot. FINDINGS: Three view examination of the right foot demonstrates soft tissue swelling of all the toes. And there is lucency involving the distal phalanx of the great toe, middle and distal phalanx of the second to e. Minimal lucency involving the distal phalanx of third toe. No periosteal reaction. The calcaneus i s intact. Bony mineralization is normal. Arthropathy of the midfoot. CONCLUSION: 1. Diffuse soft tissue swelling. 2. Suspect osteomyelitis of the distal phalanx of the great toe and the distal and middle phalanx of the second toe. 3. Questionable osteomyelitis of the distal phalanx of the third toe. Brian Sanchez MD on February 10, 2017 at 13:41 Board Certified Radiologist. This report was verified electronically.
[2017-02-10 14:30] VITALS: BP 154/76; PULSE 82; RESP 16; O2SAT 98
[2017-02-10] MEDS ORDERED: VANCOMYCIN INJ 1,000 MG in SODIUM CHLOR 0.9% 250 ML INJ 250 ML IV ONE (14:45)
[2017-02-10 14:49] LABS: BILIRUBIN, URINE NEG (NEG); BLOOD, URINE NEG (NEG); GLUCOSE,URINE 1000 mg/dL (NEG); KETONE, URINE 10 mg/dL (NEG); NITRITE,URINE NEG (NEG); PH, URINE 5.5 (5.0-8.5); URINE COLOR YELLOW (YELLW/STRAW); URINE LEUKOCYTE ESTERASE NEG (NEG)
[2017-02-10] MEDS ORDERED: FERR325T18 PO (14:57)
[2017-02-10] MEDS ORDERED: LYRI75CA PO (14:57)
[2017-02-10] MEDS ORDERED: LISI-519 PO (14:57)
[2017-02-10] MEDS ORDERED: VITA100T54 PO (14:57)
[2017-02-10] MEDS ORDERED: NOVOINJ3 SQ (14:57)
[2017-02-10] MEDS ORDERED: VITA1000 PO (14:57)
[2017-02-10] MEDS ORDERED: LANTINJ SQ (14:57)
--- NOTE | 2017-02-10 15:03 | RADRPT ---
EXAM DATE/TIME: 02/10/2017 13:41 [facility] COMPARISON: CT PULMONARY ANGIOGRAM, August 19, 2016, 18:59. INDICATIONS : Abdominal pain. IV CONTRAST: 96 cc Omnipaque 350 (iohexol) IV ORAL CONTRAST: No oral contrast ingested. RADIATION DOSE: 7.18 CTDIvol (mGy) MEDICAL HISTORY : Dementia. Diabetes, anemia. SURGICAL HISTORY : None. ENCOUNTER: Initial ACUITY: 3 days PAIN SCALE: 5/10 LOCATION: Right upper quadrant abdominal. TECHNIQUE: Volumetric scanning of the abdomen and pelvis was performed. Using automated exposure control and ad justment of the mA and/or kV according to patient size, radiation dose was kept as low as reasonably achievable to obtain optimal diagnostic quality images. DICOM format image data is available electro nically for review and comparison. FINDINGS: There are acute fractures involving the lateral aspects of the right tenth and eleventh ribs. There is an ill-defined area of decreased attenuation within the medial aspect of the right hepatic lobe wh ich may represent focal hepatic laceration with minimal perihepatic hematoma. Clinical correlation is recommended. There is also an ill-defined area of decreased attenuation within the dome of the liver in the area of the previously noted low density lesion which either represents a hemangioma filling in or possible resolution of previously noted hepatic cyst. Chronic calcific pancreatitis is stable. There is marked atrophy of the pancreatic parenchyma with significant main pancreatic ductal dilata tion which is stable. The gallbladder is nondistended and its wall is minimally thickened. The adre nal glands are normal bilaterally. There are scattered renal cysts bilaterally with the largest on t he right measuring 11 mm. No renal trauma is noted. No hydronephrosis or solid renal mass is noted. The spleen is unremarkable. The abdominal aorta is calcified but is not aneurysmally dilated. The inferior vena cava is normal. There is no paraaortic, retroperitoneal or mesenteric lymphadenopathy. Minimal ascites is noted within the abdomen and pelvis. No bowel obstruction is noted. The urinary bladder is distended but demonstrates no focal abnormality. Degenerative changes and scoliosis of th e thoracolumbar spine are noted. The visualized lung bases are clear. There is a tiny right pleural effusion. There are multiple old right rib fractures noted. CONCLUSION: 1. Acute fractures involving the lateral aspects of the right tenth and eleventh ribs. 2. Ill-defined area of decreased attenuation involving the medial aspect of the right lobe of the redd er consistent with possible focal laceration and minimal perihepatic hematoma. Clinical correlation is recommended. 3. Ill-defined area of decreased attenuation within the dome of the liver in the expected region of t he previously noted low density lesion consistent with hemangioma filling in or possible resolution o f previous cyst. 4. Chronic calcific pancreatitis with marked atrophy of the pancreatic parenchyma and marked dilatati on of the main pancreatic duct. 5. Right inguinal lymphadenopathy of indeterminate significance. 6. Degenerative changes and scoliosis if the thoracolumbar spine. 7. Tiny bilateral renal cysts. 8. Minimal ascites within the abdomen and pelvis. 9. Tiny right pleural effusion. Arnulfo Jansen MD on February 10, 2017 at 14:40 Board Certified Radiologist. This report was verified electronically.
[2017-02-10 15:59] LABS: TOTAL BILIRUBIN ADULT 0.3 MG/DL (0.2-1.0)
[2017-02-10 16:05] LABS: ALBUMIN 2.3 GM/DL (3.4-5.0); DIRECT BILIRUBIN ADULT 0.1 MG/DL (0.0-0.2); INDIRECT BILIRUBIN 0.2 MG/DL (0.0-0.8)
[2017-02-10] MEDS ORDERED: ONDANSETRON HCL 4 MG/2 ML VIAL IV PUSH PRN (18:45)
[2017-02-10] MEDS ORDERED: NALOXONE HCL 0.4 MG/ML AMP IV PUSH PRN (18:45)
[2017-02-10] MEDS ORDERED: Post-op Orders (for Pharmacy) MISC XX ONE (18:45)
[2017-02-10 20:07] VITALS: BP 132/76
[2017-02-10 20:25] VITALS: BP 175/89; PULSE 84; RESP 17; TEMP 96.1; O2SAT 94
[2017-02-10] MEDS: SODIUM CHLORIDE 0.9% FLUSH 10 ML FLUSH IV FLUSH SCH (21:00)
[2017-02-10] MEDS: LEVOFLOXACIN 500 MG PREMIX INJ 100 ML IV SCH (21:23)
[2017-02-10] MEDS: DOCUSATE SODIUM 100 MG CAP PO SCH (21:23)
[2017-02-10] MEDS: ENOXAPARIN SODIUM 40 MG/0.4 ML SYRINGE SQ SCH (21:23)
[2017-02-10] MEDS: PANTOPRAZOLE SOD 40 MG DELAYED RELEASE TAB PO SCH (21:23)
[2017-02-10] MEDS: oxyCODONE/ACETAMINOPHEN 5 MG/325 MG TAB PO PRN (21:24)
[2017-02-10] MEDS: SODIUM CHLOR 0.9% 1000 ML INJ 1,000 ML IV SCH (21:24)
--- NOTE | 2017-02-10 22:07 | RADRPT ---
EXAM DATE/TIME: 02/10/2017 21:42 [facility] COMPARISON: US CAROTID ARTERIES, August 20, 2016, 8:11. INDICATIONS : Syncope. MEDICAL HISTORY : Gastroesophageal reflux disease. Diabetes. Anemia. SURGICAL HISTORY : Right foot debridement. C5 disc removal. ENCOUNTER: Initial ACUITY: 1 day PAIN SCORE: 3/10 LOCATION: Bilateral neck. PEAK SYSTOLIC VELOCITIES (cm/sec): ICA/CCA RATIO: Right: 1.0 Left: 0.9 ICA: Right: 67.7 Left: 60.7 CCA: Right: 66.1 Left: 70.9 ECA: Right: 78.9 Left: 125.6 VERTEBRAL: Right: 46.0 antegrade Left: 43.9 antegrade Elevated flow velocities and ICA/CCA ratios have been found to correlate with increased degrees of vessel stenosis, calculated as percentage of diameter relative to a normal segment of distal ICA/CCA FINDINGS: RIGHT CAROTID: No significant stenosis is visualized. Mild plaquing is present. The waveforms are within normal rubio its. LEFT CAROTID: No significant stenosis is visualized. Mild plaque is present. The waveforms are within normal limit s. VERTEBRAL ARTERIES: Antegrade flow is seen in both vertebral arteries. MISCELLANEOUS: None. CONCLUSION: 1. Mild plaquing with no evidence of a hemodynamically significant stenosis. 2. Antegrade flow in both vertebral arteries. Edward Sotelo MD on February 10, 2017 at 22:05 Board Certified Radiologist. This report was verified electronically.
[2017-02-11] VITALS: BP 169/89; PULSE 84; RESP 17; TEMP 96.4; O2SAT 94
[2017-02-11] MEDS: VANCOMYCIN INJ 1,000 MG in SODIUM CHLOR 0.9% 250 ML INJ 250 ML IV SCH ×2 (02:40→14:49)
[2017-02-11] MEDS: SODIUM CHLOR 0.9% 1000 ML INJ 1,000 ML IV SCH ×2 (06:00→16:00)
[2017-02-11 08:00] VITALS: BP 124/77; PULSE 93; RESP 16; TEMP 96.8; O2SAT 96
[2017-02-11] MEDS: SODIUM CHLORIDE 0.9% FLUSH 10 ML FLUSH IV FLUSH SCH ×2 (09:00→19:51)
[2017-02-11] MEDS: DOCUSATE SODIUM 100 MG CAP PO SCH ×2 (09:00→19:57)
[2017-02-11] MEDS: oxyCODONE/ACETAMINOPHEN 5 MG/325 MG TAB PO PRN ×3 (10:16→23:50)
--- NOTE | 2017-02-11 10:22 | PD ---
Data Data Last Documented VS Vital Signs Date Time Temp Pulse Resp B/P (MAP) Pulse Ox O2 Delivery O2 Flow Rate FiO2 02/10/17 14:30 82 16 154/76 (102) 98 Room Air 02/10/17 11:41 99.1 Orders Orders Complete Blood Count With Diff (02/10/17 11:49) Basic Metabolic Panel (Bmp) (02/10/17 11:49) Chest, Pa & Lat (02/10/17 ) Coag Profile (02/10/17 11:50) Foot, Complete ([id number]) (02/10/17 12:39) Lactic Acid (02/10/17 12:39) Urinalysis - C+S If Indicated (02/10/17 12:39) Ct Abd/Pel W Iv Contrast(Rout) (02/10/17 12:39) Iv Access Insert/Monitor (02/10/17 12:39) Morphine Inj (Morphine Inj) (02/10/17 12:45) Sodium Chlor 0.9% 1000 Ml Inj (Ns 1000 M (02/10/17 12:39) Sodium Chloride 0.9% Flush (Ns Flush) (02/10/17 12:45) Blood Culture (02/10/17 12:39) Ecg Monitoring (02/10/17 12:39) Oximetry (02/10/17 12:39) Hepatic Functional Panel (02/10/17 13:36) Cath For Specimen (02/10/17 13:41) Iohexol 350 Inj (Omnipaque 350 Inj) (02/10/17 13:44) Vancomycin Inj (Vancomycin Inj) (02/10/17 14:45) Resp Incentive Spirometry (02/10/17 ) Admit Order (Ed Use Only) (02/10/17 18:29) Labs Laboratory Tests Test 02/10/17 12:00 02/10/17 13:00 02/10/17 14:15 White Blood Count 14.4 TH/MM3 Red Blood Count 4.40 MIL/MM3 Hemoglobin 11.1 GM/DL Hematocrit 35.2 % Mean Corpuscular Volume 80.1 FL Mean Corpuscular Hemoglobin 25.2 PG Mean Corpuscular Hemoglobin Concent 31.4 % Red Cell Distribution Width 17.0 % Platelet Count 527 TH/MM3 Mean Platelet Volume 7.2 FL Neutrophils (%) (Auto) 77.9 % Lymphocytes (%) (Auto) 12.6 % Monocytes (%) (Auto) 7.7 % Eosinophils (%) (Auto) 1.1 % Basophils (%) (Auto) 0.7 % Neutrophils # (Auto) 11.3 TH/MM3 Lymphocytes # (Auto) 1.8 TH/MM3 Monocytes # (Auto) 1.1 TH/MM3 Eosinophils # (Auto) 0.2 TH/MM3 Basophils # (Auto) 0.1 TH/MM3 CBC Comment DIFF FINAL Differential Comment Prothrombin Time 11.1 SEC Prothromb Time International Ratio 1.0 RATIO Activated Partial Thromboplast Time 31.0 SEC Blood Urea Nitrogen 26 MG/DL Creatinine 1.20 MG/DL Random Glucose 421 MG/DL Calcium Level 9.1 MG/DL Sodium Level 131 MEQ/L Potassium Level 5.6 MEQ/L Chloride Level 95 MEQ/L Carbon Dioxide Level 29.0 MEQ/L Anion Gap 7 MEQ/L Estimat Glomerular Filtration Rate 59 ML/MIN Total Bilirubin 0.3 MG/DL Direct Bilirubin 0.1 MG/DL Indirect Bilirubin 0.2 MG/DL Aspartate Amino Transf (AST/SGOT) 17 U/L Alanine Aminotransferase (ALT/SGPT) 21 U/L Alkaline Phosphatase 102 U/L Total Protein 8.0 GM/DL Albumin 2.3 GM/DL Lactic Acid Level 1.4 mmol/L Urine Color YELLOW Urine Turbidity CLEAR Urine pH 5.5 Urine Specific [place] 1.037 Urine Protein TRACE mg/dL Urine Glucose (UA) 1000 mg/dL Urine Ketones 10 mg/dL Urine Occult Blood NEG Urine Nitrite NEG Urine Bilirubin NEG Urine Urobilinogen LESS THAN 2.0 MG/DL Urine Leukocyte Esterase NEG Urine RBC 1 /hpf Urine WBC 1 /hpf Microscopic Urinalysis Comment CULT NOT INDICATED [facility] Supervised Visit with KRISTEN: Yes Narrative Course The history, exam, and medical decision-making in the associated midlevel provider note were completed with my assistance. I reviewed and agree with the findings presented. I attest that I had a [id number] encounter with the patient on the same day, and personally performed and documented my assessment and findings in the medical record. *My assessment and Findings: This is a 76-year-old male who presents to the emergency department having had a mechanical fall several days ago injuring his right side. He has evidence of multiple right rib fractures and a possible liver laceration and hematoma on imaging. Additionally he has a warm right toe , leukocytosis and on x-ray evidence of osteomyelitis. I suspect this infection was what prompted his fall as he says he's been feeling generally weak lately. He was given a dose of vancomycin. He had an initial low blood pressure but responded to fluids and throughout the rest of his ER stay he's appeared stable. We did consult the trauma surgeon and the patient will be admitted to the hospital. Diagnosis Primary Impression: Fall Qualified Codes: W19.XXXA - Unspecified fall, initial encounter Additional Impressions: Right rib fracture Qualified Codes: S22.41XA - Multiple fractures of ribs, right side, initial encounter for closed fracture Liver hematoma Qualified Codes: S36.112A - Contusion of liver, initial encounter Liver laceration Qualified Codes: S36.113A - Laceration of liver, unspecified degree, initial encounter Osteomyelitis of toe of right foot Mee Motta MD Feb 11, 2017 10:22
--- NOTE | 2017-02-11 11:11 | PD.CONS ---
HPI Service [facility] Hospitalists Consult Requested By Dr. Gamboa Reason for Consult Medical management [facility] Diagnoses: History of Present Illness 76-year-old male with a medical history significant for type 2 diabetes, GERD, depression, diabetic neuropathy presented to the hospital after a fall. Patient reports he was walking from his room when his leg suddenly gave out. She fell and striking the right side of his chest on the doorway. Workup in the emergency room revealed multiple rib fractures and possible liver laceration. Patient was admitted to the trauma service. Hospitalist service consulted for medical management. On further history, the patient reports he has been struggling the right toe wound for the past 3 months. He has been followed by the [facility] but this is not healing. X-rays concerning for osteomyelitis. Patient reports currently he is feeling okay. He denies any fevers or chills. He has not been on antibiotics. Review of Systems Constitutional: DENIES: Fever, Chills Respiratory: DENIES: Cough, Shortness of breath Cardiovascular: DENIES: Chest pain, Palpitations, Syncope Musculoskeletal: COMPLAINS OF: Stiffness Except as stated in HPI: all other systems reviewed are Neg Past Family Social History Allergies: Coded Allergies: amoxicillin (Unverified Adverse Reaction, Unknown, kidney problem, 11/24/16 ) clavulanic acid (Unverified Adverse Reaction, Unknown, kidney problem, ) Past Medical History Type 2 diabetes GERD Depression Hypertension Past Surgical History Appendectomy Cervical discectomy Reported Medications Reported Meds & Active Scripts Active Omeprazole 40 Mg Cap 40 Mg PO DAILY Reported Vitamin B-1 (Thiamine HCl) 100 Mg Tab 100 Mg PO DAILY Ferrous Sulfate 325 Mg (65 Mg Iron) Tablet 325 Mg PO BIDPC Lisinopril 5 Mg Tab 5 Mg PO DAILY Lyrica (Pregabalin) 75 Mg Cap 75 Mg PO DAILY Lantus Solostar Pen Inj (Insulin Glargine) 300 Unit/3 Ml Pen 25 Units SQ HS Vitamin D-1000 (Cholecalciferol) 1,000 Unit Tab 1,000 Units PO TID Novolog Flexpen Inj (Insulin Aspart) 300 Unit/3 Ml Pen 10 Units SQ TID Metformin (Metformin HCl) 500 Mg Tab 500 Mg PO BIDPC With meals Venlafaxine ER 24 HR (Venlafaxine HCl) 75 Mg Cap 75 Mg PO DAILY Flornetino LEHMAN (Duloxetine HCl) 60 Mg Capdr 60 Mg PO BID Family History Reviewed and found to be noncontributory to current condition. Social History No tobacco, alcohol, or illicit drug use. Physical Exam Vital Signs Vital Signs Date Time Temp Pulse Resp B/P (MAP) Pulse Ox O2 Delivery O2 Flow Rate FiO2 02/11/17 08:00 96.8 93 16 124/77 (93) 96 02/11/17 00:00 96.4 84 17 169/89 (115) 94 02/10/17 22:24 18 02/10/17 20:25 96.1 84 17 175/89 (117) 94 02/10/17 20:07 80 16 132/76 (94) 98 02/10/17 14:30 82 16 154/76 (102) 98 Room Air 02/10/17 14:14 18 02/10/17 13:00 90 18 02/10/17 13:00 89 18 124/79 (94) 96 Room Air 02/10/17 11:41 99.1 108 18 91/50 (64) 97 Room Air Physical Exam CONSTITUTIONAL/GENERAL: This is an adequately nourished patient, in no apparent distress. Vital signs reviewed SKIN: No jaundice. HEAD: Atraumatic. Normocephalic. EYES: Pupils equal and round and reactive. Extra ocular motions are intact. No scleral icterus. No injection or drainage. ENT: Hearing grossly normal. Nose without drainage. Throat without visible erythema, exudates, masses, or lesions. NECK: Trachea midline. Neck is supple, non-tender. No palpable thyroid enlargement or nodularity. CARDIOVASCULAR: Normal rate and regular rhythm without murmurs, gallops, or rubs. No JVD. Peripheral pulses 2+ and symmetric. RESPIRATORY/CHEST: Symmetric, unlabored respirations. Breath sounds equal and clear to auscultation bilaterally. No wheezes, crackles, rales, or rhonchi. GASTROINTESTINAL: Abdomen soft, non-tender, non-distended. No hepato- splenomegaly, or palpable masses. No guarding. Bowel sounds present. MUSCULOSKELETAL: Right greater toe is swollen and there is erosion. There is no active drainage. No evidence of surrounding cellulitis. NEUROLOGICAL: Awake and alert. Motor and sensory grossly within normal limits. Follows commands. Move all extremities spontaneously. No focal deficits. PSYCHIATRIC: No obvious mood problems. No apparent hallucinations or other psychotic thought process. Laboratory Laboratory Tests Test 02/10/17 12:00 02/10/17 13:00 02/10/17 14:15 White Blood Count 14.4 Red Blood Count 4.40 Hemoglobin 11.1 Hematocrit 35.2 Mean Corpuscular Volume 80.1 Mean Corpuscular Hemoglobin 25.2 Mean Corpuscular Hemoglobin Concent 31.4 Red Cell Distribution Width 17.0 Platelet Count 527 Mean Platelet Volume 7.2 Neutrophils (%) (Auto) 77.9 Lymphocytes (%) (Auto) 12.6 Monocytes (%) (Auto) 7.7 Eosinophils (%) (Auto) 1.1 Basophils (%) (Auto) 0.7 Neutrophils # (Auto) 11.3 Lymphocytes # (Auto) 1.8 Monocytes # (Auto) 1.1 Eosinophils # (Auto) 0.2 Basophils # (Auto) 0.1 CBC Comment DIFF FINAL Differential Comment Prothrombin Time 11.1 Prothromb Time International Ratio 1.0 Activated Partial Thromboplast Time 31.0 Blood Urea Nitrogen 26 Creatinine 1.20 Random Glucose 421 Calcium Level 9.1 Sodium Level 131 Potassium Level 5.6 Chloride Level 95 Carbon Dioxide Level 29.0 Anion Gap 7 Estimat Glomerular Filtration Rate 59 Total Bilirubin 0.3 Direct Bilirubin 0.1 Indirect Bilirubin 0.2 Aspartate Amino Transf (AST/SGOT) 17 Alanine Aminotransferase (ALT/SGPT) 21 Alkaline Phosphatase 102 Total Protein 8.0 Albumin 2.3 Lactic Acid Level 1.4 Urine Color YELLOW Urine Turbidity CLEAR Urine pH 5.5 Urine Specific [place] 1.037 Urine Protein TRACE Urine Glucose (UA) 1000 Urine Ketones 10 Urine Occult Blood NEG Urine Nitrite NEG Urine Bilirubin NEG Urine Urobilinogen LESS THAN 2.0 Urine Leukocyte Esterase NEG Urine RBC 1 Urine WBC 1 Microscopic Urinalysis Comment CULT NOT INDICATED Date/Time Source Procedure Growth Status 02/10/17 13:10 Blood Peripheral Aerobic Blood Culture - Preliminary NO GROWTH IN 1 DAY Resulted 02/10/17 13:10 Blood Peripheral Anaerobic Blood Culture - Preliminary NO GROWTH IN 1 DAY Resulted Result Diagram: 02/10/17 1200 02/10/17 1200 Imaging Last Impressions Foot X-Ray 02/10/17 1239 Signed Impressions: Service Date/Time: Wednesday, February 10, 2017 13:08 - CONCLUSION: 1. Diffuse soft tissue swelling. 2. Suspect osteomyelitis of the distal phalanx of the great toe and the distal and middle phalanx of the second toe. 3. Questionable osteomyelitis of the distal phalanx of the third toe. Brian Sanchez MD Abdomen/Pelvis CT 02/10/17 1239 Signed Impressions: Service Date/Time: Friday, February 10, 2017 13:41 - CONCLUSION: 1. Acute fractures involving the lateral aspects of the right tenth and eleventh ribs. 2. Ill-defined area of decreased attenuation involving the medial aspect of the right lobe of the liver consistent with possible focal laceration and minimal perihepatic hematoma. Clinical correlation is recommended. 3. Ill-defined area of decreased attenuation within the dome of the liver in the expected region of the previously noted low density lesion consistent with hemangioma filling in or possible resolution of previous cyst. 4. Chronic calcific pancreatitis with marked atrophy of the pancreatic parenchyma and marked dilatation of the main pancreatic duct. 5. Right inguinal lymphadenopathy of indeterminate significance. 6. Degenerative changes and scoliosis if the thoracolumbar spine. 7. Tiny bilateral renal cysts. 8. Minimal ascites within the abdomen and pelvis. 9. Tiny right pleural effusion. Arnulfo Jansen MD Chest X-Ray 02/10/17 0000 Signed Impressions: Service Date/Time: Friday, February 10, 2017 12:02 - CONCLUSION: 1. Fractures of the right lateral eighth and ninth ribs which may be acute to subacute. 2. No pneumothorax or lung contusion. Edward Sotelo MD Carotid Artery Ultrasound 02/10/17 0000 Signed Impressions: Service Date/Time: Friday, February 10, 2017 21:42 - CONCLUSION: 1. Mild plaquing with no evidence of a hemodynamically significant stenosis. 2. Antegrade flow in both vertebral arteries. Edward Sotelo MD Assessment and Plan Problem List: (1) Right rib fracture ICD Code: S22.31XA - Fracture of one rib, right side, initial encounter for closed fracture Status: Acute (2) Osteomyelitis of toe of right foot ICD Code: M86.9 - Osteomyelitis, unspecified Status: Acute (3) Liver laceration ICD Code: S36.113A - Laceration of liver, unspecified degree, initial encounter Status: Acute (4) Fall ICD Code: W19.XXXA - Unspecified fall, initial encounter Status: Acute (5) DM type 2, uncontrolled, with lower extremity ulcer ICD Code: E11.622 - Type 2 diabetes mellitus with other skin ulcer; E11.65 - Type 2 diabetes mellitus with hyperglycemia; L97.909 - Non-pressure chronic ulcer of unspecified part of unspecified lower leg with unspecified severity Status: Chronic Assessment and Plan 76-year-old male admitted to the trauma service after what appears to be a mechanical fall. He sustained rib fractures and possible liver laceration. Hospitalist service following for medical management. Fall, rib fractures and a laceration: - Trauma service following. Patient appeared to be hemodynamically stable at this time. Foot wound probably contributed to the fall. - Continue with pain control. Incentive spirometry is advised. - Consult PT Right great toe with possible osteomyelitis: - Podiatry consulted. - Continue empiric antibiotics with Levaquin and vancomycin. MRI of the foot ordered. Further plans per podiatry. Type 2 diabetes: Previously uncontrolled. Last A1c on record was 14. - Continue NovoLog scheduled 3 times a day and Lantus at night. - Continue sliding scale insulin with Accu-Cheks. - Check hemoglobin A1c GI prophylaxis:Stool softener PRN constipation. DVT PPx: SCDs Discussed Condition With RN Will continue to follow Problem Qualifiers (1) Right rib fracture: Qualified Codes: S22.41XA - Multiple fractures of ribs, right side, initial encounter for closed fracture (2) Liver laceration: Qualified Codes: S36.113A - Laceration of liver, unspecified degree, initial encounter (3) Fall: Qualified Codes: W19.XXXA - Unspecified fall, initial encounter Alejandro Cevallos MD Feb 11, 2017 11:10
[2017-02-11 12:00] VITALS: BP 158/86; PULSE 80; RESP 17; TEMP 97.6; O2SAT 96
[2017-02-11] MEDS ORDERED: DEXTROSE 50% IN WATER 50 ML VIAL(D50) IV PUSH PRN (12:30)
[2017-02-11] MEDS ORDERED: GLUCAGON 1 MG/ML VIAL OTHER PRN (12:30)
[2017-02-11] MEDS: INSULIN ASPART 1,000 UNITS/10 ML VIAL SQ SCH ×2 (13:00→17:22)
[2017-02-11] MEDS: INSULIN ASPART SUPPLEMENTAL SCALE SQ SCH ×3 (13:00→20:46)
[2017-02-11] MEDS ORDERED: IOHEXOL 350 MG/ML 10 ML VIAL (for RAD DIAG) IVCONTRAST ONE (14:36)
[2017-02-11] MEDS: CHOLECALCIFEROL (VIT D3) 1000 UNIT TAB PO SCH ×2 (14:49→17:08)
--- NOTE | 2017-02-11 14:56 | PD.CAR.PN ---
CVT Progress Note Subjective/Hospital Course: Pleasant 76-year-old gentleman with multiple medical problems and in addition, contusion and laceration the right hepatic lobe and fracture of the 11th and 12th ribs as a result of fall few days ago Patient clearly has impaired distal vasculature of the right leg and has severe diabetic neuropathy with the chronic wound and now osteomyelitis of the hallux Appreciate infectious disease and podiatry consults Carotid ultrasound reveals mild plaquing as I expected CTA with runoff is pending Once we have a better picture will be able to render more clear opinion as to the treatment of the right leg As far as the liver is concerned this is self-contained laceration and no further therapy is necessary Objective: Vital Signs Date Time Temp Pulse Resp B/P (MAP) Pulse Ox O2 Delivery O2 Flow Rate FiO2 02/11/17 12:00 97.6 80 17 158/86 (110) 96 02/11/17 08:00 96.8 93 16 124/77 (93) 96 02/11/17 00:00 96.4 84 17 169/89 (115) 94 02/10/17 22:24 18 02/10/17 20:25 96.1 84 17 175/89 (117) 94 02/10/17 20:07 80 16 132/76 (94) 98 Result Diagram: 02/10/17 1200 02/10/17 1200 Oliva Gamboa MD Feb 11, 2017 14:56
--- NOTE | 2017-02-11 15:22 | MH ---
cc: OLIVA ANTHONY MD DATE OF ADMISSION: 02/10/2017 ADMITTING DIAGNOSIS: 1. Osteomyelitis of the right foot. 2. Diabetes mellitus 3. Peripheral vascular disease. 4. Liver contusion. HISTORY OF PRESENT ILLNESS: This 72-year-old male with multiple medical problems apparently fell about three days ago and hit his right chest and abdomen against some object. The patient stayed at home and then finally could not take it any more and came to the hospital [facility]. The patient has multiple rib fractures and the liver laceration and is being admitted to trauma service in addition, the patient is found to have cellulitis of the right leg with osteomyelitis of the right hallux. The patient has been going to the wound care clinic for that. We are going to take care of all these problems at this point. PAST MEDICAL HISTORY: 1. Diabetes mellitus. 2. Hypertension. 3. Diabetic neuropathy 4. Depression PAST SURGICAL HISTORY: Surgical history is that of cervical discectomy and appendectomy. MEDICATIONS: The medications can be found in the records. SOCIAL HISTORY: The patient does not smoke, does not drink. PHYSICAL EXAMINATION: IN GENERAL: This pleasant 76-year-old gentleman, not distress, normocephalic, no trauma to the head. HEAD, EARS, EYES, NOSE, AND THROAT pupils equal, round and reactive, extraocular muscles intact. NECK: Bilateral carotid pulses and actually faint bilateral carotid bruits. Two through six which is probably not sufficient type of stenosis but I have seen worse so a carotid ultrasound will be done. CHEST: Bilateral breath sounds. Decreased over both lung lara consistent with mild chronic obstructive pulmonary disease. HEART: Regular rhythm, hemodynamically the patient is stable. ABDOMEN: The abdomen is soft, active bowel sounds. No rebound or guarding. No masses. EXTREMITIES: The patient has actually palpable femoral pulses. He has palpable popliteal pulses bilateral. Distally patient has no posterior tibial or dorsalis pedis pulse in either leg. He has good capillary refill is delayed in both feet and I believe that patient probably has some collateral flow down there but no [place] vessels. The left leg appears to be normal. On the right side the patient's significant chronic swelling of the leg below the level of the knee with some cellulitis and dry chafing skin. The foot is swollen and there is ulcer on the inferior medial aspect of the hallux of the right foot and some drainage around it. Capillary refill on the right side is decreased and on the left side is normal. NEUROLOGICALLY: Grossly the patient is intact with limitations of the right leg. RECOMMENDATIONS This gentleman has several problems; He has liver lacerations and liver hematoma of the right hepatic lobe is a result of the fall a few days ago. This appears to be stable. There is a small amount of blood in the abdomen. The patient also has several fractured ribs on the right side. As far as his vascular status is concerned, this gentleman has palpable proximal pulses, so his inflow is probably okay. There are no distal pulses below the level of popliteal artery so this patient has severe diabetic small vessel disease and I would bet he has only 1 vessel runoff to each foot and considering that I'm not getting any pulses is probably via peroneal arteries. In addition osteomyelitis of the right foot is a concerning finding and podiatry will be consulted for the same as well as infectious disease and further care will be per clinical indexes. CTA is ordered and based on this will define whether patient needs some endovascular work, any vascular reconstruction or he is on his way to have an amputation. CRITICAL CARE: 40 minutes. Oliva Arguelles /2:55 PM /3:11 PM JEFF
--- NOTE | 2017-02-11 15:59 | RADRPT ---
EXAM DATE/TIME: 02/11/2017 14:05 [facility] COMPARISON: No previous studies available for comparison. INDICATIONS : PVD osteomyelitis right leg, great right toe IV CONTRAST: 75 cc Omnipaque 350 (iohexol) IV RADIATION DOSE: 2.86 CTDIvol (mGy) MEDICAL HISTORY : Dementia. Diabetes SURGICAL HISTORY : None. ENCOUNTER: Initial ACUITY: 1 day PAIN SCALE: 3/10 LOCATION: Right toe TECHNIQUE: Volumetric scanning was performed using a multi-row detector CT scanner. The data was post processed with a variety of visualization algorithms including full volume maximum intensity projection, multi -planar sliding thin slab reformation, curved planar reformation, and surface rendering techniques. Using automated exposure control and adjustment of the mA and/or kV according to patient size, radiat ion dose was kept as low as reasonably achievable to obtain optimal diagnostic quality images. DICO M format image data is available electronically for review and comparison. FINDINGS: Examination of the lung bases demonstrates no abnormality. No pleural fluid is identified. No pulmona ry nodules are present. The liver and spleen are free of focal defects. The gallbladder and pancreas demonstrate no abnormality. The adrenal glands are normal. The kidneys demonstrate no evidence of susan id renal mass or hydronephrosis. No free fluid or abdominal masses are identified. No para-aortic ankita nopathy is seen. There is a large amount of fecal material throughout the colon consistent with const ipation. A small amount of free fluid is present within the pelvis. The aorta is normal in caliber. There is no evidence of aneurysm or dissection. The renal artery orig ins are patent bilaterally. The celiac axis and superior mesenteric artery origins are also patent. Examination of the right lower extremity demonstrates no evidence of inflow stenosis. The common femo ral artery is patent. The superficial femoral artery is patent. The popliteal artery is patent. There is cellulitis involving the lower leg with extensive infrapopliteal disease involving all 3 vessels. Multiple varicosities are present. Examination of the left lower extremity demonstrates no evidence of inflow stenosis. The common femor al artery is patent. The superficial femoral artery is patent. The popliteal artery is patent. There is single vessel runoff to the ankle via the peroneal branch. CONCLUSION: 1. Severe bilateral infrapopliteal disease with no named runoff on the right and single vessel runoff on the left. No proximal stenosis is identified Alden Augustine MD on February 11, 2017 at 15:37 Board Certified Radiologist. This report was verified electronically.
[2017-02-11 16:00] VITALS: BP 126/72; PULSE 83; RESP 16; TEMP 97.3; O2SAT 96
[2017-02-11] MEDS: GENTAMICIN SULFATE 0.1% OINT 15 GM TUBE TOPICAL SCH (16:00)
[2017-02-11] MEDS ORDERED: GADODIAMIDE PF 287 MG/ML 5 ML VIAL (for RAD MRI) IVCONTRAST ONE (16:00)
[2017-02-11] MEDS: FERROUS SULFATE 325 MG (65 MG ELEMENTAL IRON) TAB PO SCH (17:07)
--- NOTE | 2017-02-11 17:08 | RADRPT ---
EXAM DATE/TIME: 02/11/2017 15:46 [facility] COMPARISON: FOOT RIGHT COMPLETE ([id number]), February 10, 2017, 13:08. INDICATIONS : Wound over 1st digit with history of I&D. CONTRAST: 14 cc Omniscan (gadodiamide) IV MEDICAL HISTORY : Diabetes mellitus type 2. Gastroesophageal reflux disease. SURGICAL HISTORY : Appendectomy. Fusion, cervical. ENCOUNTER: Subsequent ACUITY: 2 day PAIN SCORE: 3/10 LOCATION: Right 1st digit TECHNIQUE: Multiplanar, multisequence MRI examination was performed without contrast and after the intravenous a dministration of gadolinium. FINDINGS: There is soft tissue swelling as well as abnormal signal in the distal phalanx of the first toe highl y suspicious for osteomyelitis. There is also some abnormal signal changes in the proximal phalanx of the first toe. There is some degenerative changes at the first metatarsal-phalangeal joint. Otherwis e the metatarsals demonstrate normal signal intensity. There appears to be abnormal signal involving the middle phalanx and distal phalanx of the second toe along with some soft tissue swelling. These f indings are suspicious for osteomyelitis. The third, fourth and fifth toes appear to be grossly intac t. There is nonspecific edema throughout the soft tissues of the midfoot. There are degenerative type changes involving the midtarsal bones and hindfoot. CONCLUSION: 1. Findings suspicious for osteomyelitis are seen involving the distal phalanx and proximal phalanx o f the first toe with adjacent soft tissue swelling. 2. Findings suspicious for osteophytosis are seen involving the middle and distal phalanx of the seco nd toe 3. Nonspecific edema is seen throughout the soft tissues throughout the midfoot. Demond Bui MD on February 11, 2017 at 16:58 Board Certified Radiologist. This report was verified electronically.
--- NOTE | 2017-02-11 19:26 | MB ---
cc: PRABHJOT ADY MD DATE OF CONSULTATION 02/11/[address] Gamboa REASON FOR CONSULTATION Osteo of the foot. HISTORY OF PRESENT ILLNESS This is a 76-year-old white male who presented to the emergency department from the [facility] with right-sided rib cage pain after a fall. The patient has also been treated for an ulcer of his right great toe for about a month. He tells me that the [facility] has been doing debridements and cleaning the wound with Betadine. The toe appeared very swollen and a foot x-ray was performed and it showed diffuse soft tissue swelling and suspected osteomyelitis of the distal phalanx of the great toe and the distal and middle phalanx of the second toe. The patient tells me that he does not pain in the right great toe or the right foot. He states that he has neuropathy. He is afebrile and the white blood cell count is 14.4. When I unwrapped the toe to inspect it, there was pus coming from the area of the nail bed on the great toe which is closer to the second toe. There was a few droplets of pus in that location. The great toe is markedly swollen and the second toe is also markedly swollen. The great toe has areas of indentation where it appears that debridement may have been done. These areas are dry. PAST MEDICAL HISTORY 1. Diabetes mellitus type 2, 2. Hypertension, 3. Gastroesophageal reflux disease, 4. Depression, 5. Appendectomy, 6. Cervical diskectomy. ALLERGIES AMOXICILLIN CLAVULANIC ACID MEDICATIONS 1. Vancomycin. 2. Levaquin. 3. Protonix. 4. Colace. 5. Insulin 6. Vitamin D3. 7. Ferrous sulfate 8. Levemir 9. Cymbalta 10. Effexor 11. Vitamin B1 12. Lyrica SOCIAL HISTORY No tobacco nor alcohol. Denies illicit drugs. FAMILY HISTORY Noncontributory. REVIEW OF SYSTEMS Significant for pain in the right rib cage. The patient denies other symptoms review. PHYSICAL EXAMINATION GENERAL: This is a well-developed male who is in no acute distress. He is awake and alert and oriented. VITAL SIGNS: Temperature 97.3. BP 126/72. HEENT: The head is atraumatic. Extraocular movements grossly intact, pupils reactive to light. No icterus. Oropharynx moist mucosa without lesions. NECK: Supple. No adenopathy. LUNGS: Clear breath sounds HEART: Regular S1, S2, without murmurs, rubs or gallops. ABDOMEN: Bowel sounds present, soft, no tenderness appreciated. RECTAL: Not performed. EXTREMITIES: The right great toe is markedly swollen and has some dimpling changes from prior debridement. Droplets of pus is visible at the inner aspect of the nail bed. The right second toe has no ulcerations, but is markedly swollen. It is very mildly erythematous. No rash. NEUROLOGIC: Nonfocal. PSYCHIATRIC: The patient is calm and cooperative. LABORATORY DATA WBC 14.4, platelets 527, 77% neutrophils, creatinine 1.20, estimated GFR 59, sodium 131. Liver function tests normal. IMPRESSION 1. Osteomyelitis involving the right great toe and right second toe. 2. Leukocytosis RECOMMENDATIONS 1. Obtain culture of the pus from the right great toe 2. Continue vancomycin and Levaquin 3. Follow up on the culture 4. Monitor clinical response to the antibiotics and antibiotic adjustment once culture becomes available. Thank you for this consultation. Prabhjot Day MD FD/ /4:53 PM /7:11 PM JEFF
[2017-02-11] MEDS: ENOXAPARIN SODIUM 40 MG/0.4 ML SYRINGE SQ SCH (19:57)
[2017-02-11] MEDS: LEVOFLOXACIN 500 MG PREMIX INJ 100 ML IV SCH (19:57)
[2017-02-11] MEDS: PANTOPRAZOLE SOD 40 MG DELAYED RELEASE TAB PO SCH (19:57)
[2017-02-11] MEDS: DULoxetine HCl DR 60 MG CAP PO SCH (20:40)
[2017-02-11] MEDS: INSULIN DETEMIR 100 UNITS/ML VIAL SQ SCH (20:47)
[2017-02-11 20:49] VITALS: BP 156/80; PULSE 81; RESP 18; TEMP 97.3; O2SAT 96
[2017-02-12] VITALS (8 sets, daily range): BP systolic 92–176; BP diastolic 51–88; PULSE 76–95; RESP 16–18; TEMP 96.5–98.5; O2SAT 93–98
[2017-02-12] MEDS: SODIUM CHLOR 0.9% 1000 ML INJ 1,000 ML IV SCH ×2 (02:00→23:58)
[2017-02-12] MEDS: oxyCODONE/ACETAMINOPHEN 5 MG/325 MG TAB PO PRN ×3 (03:35→21:39)
[2017-02-12] MEDS: VANCOMYCIN INJ 1,000 MG in SODIUM CHLOR 0.9% 250 ML INJ 250 ML IV SCH ×2 (03:35→16:15)
[2017-02-12] MEDS: INSULIN ASPART SUPPLEMENTAL SCALE SQ SCH ×4 (08:00→21:49)
[2017-02-12 08:04] LABS: HEMOGLOBIN 9.9 GM/DL (13.0-17.0); MEAN CELL VOLUME 79.4 FL (80.0-100.0); MEAN CORPUSCULAR HEMOGLOBIN 25.3 PG (27.0-34.0); MEAN CORPUSCULAR HGB CONC 31.9 % (32.0-36.0); MEAN PLATELET VOLUME 7.2 FL (7.0-11.0); PLATELET COUNT 446 TH/MM3 (150-450); RED BLOOD COUNT 3.91 MIL/MM3 (4.50-5.90); RED CELL DISTRIBUTION WIDTH 16.9 % (11.6-17.2); WHITE BLOOD COUNT 12.9 TH/MM3 (4.0-11.0)
[2017-02-12 08:34] LABS: BICARBONATE 27.3 MEQ/L (21.0-32.0); CALCIUM 8.5 MG/DL (8.5-10.1); CREATININE 0.82 MG/DL (0.60-1.30)
[2017-02-12] MEDS: INSULIN ASPART 1,000 UNITS/10 ML VIAL SQ SCH ×3 (09:00→17:10)
[2017-02-12] MEDS: GENTAMICIN SULFATE 0.1% OINT 15 GM TUBE TOPICAL SCH (09:00)
[2017-02-12] MEDS ORDERED: NON-FORMULARY DRUG (Omeprazole 40 MG) PO SCH (09:00)
[2017-02-12] MEDS: SODIUM CHLORIDE 0.9% FLUSH 10 ML FLUSH IV FLUSH SCH ×2 (09:00→21:00)
[2017-02-12] MEDS: FERROUS SULFATE 325 MG (65 MG ELEMENTAL IRON) TAB PO SCH ×2 (09:02→17:09)
[2017-02-12] MEDS: DOCUSATE SODIUM 100 MG CAP PO SCH ×2 (09:02→20:48)
[2017-02-12] MEDS: THIAMINE HCL 100 MG TAB PO SCH (09:02)
[2017-02-12] MEDS: PREGABALIN 75 MG CAP PO SCH (09:02)
[2017-02-12] MEDS: DULoxetine HCl DR 60 MG CAP PO SCH ×2 (09:02→20:48)
[2017-02-12] MEDS: CHOLECALCIFEROL (VIT D3) 1000 UNIT TAB PO SCH ×3 (09:02→17:09)
[2017-02-12] MEDS: VENLAFAXINE HCL XR 75 MG CAP PO SCH (09:04)
--- NOTE | 2017-02-12 12:42 | MB ---
cc: CAYLA NGUYEN DATE OF CONSULTATION: 02/11/2017 REASON FOR CONSULTATION: Right foot ulcerations with suspected osteomyelitis. HISTORY OF PRESENT ILLNESS Mr. Neves is a 76-year-old male patient who presents to the emergency department from the [facility] with right sided ribcage pain after the fall. I have been consulted for a swollen and ulcerated right hallux with x-ray suspicious for osteomyelitis. The patient has had a wound on the hallux for quite some time and has been seen a sterile processing tech at the [facility] on a regular basis. He was seen every week for debridement and they tried to lengthen the amount of time and that is when he states that the leg started getting red and appeared to be worsening. PAST MEDICAL HISTORY: 1. Diabetes mellitus type 2 2. Hypertension 3. Gastroesophageal reflux disease. 4. Depression PAST SURGICAL HISTORY: 1. Appendectomy 2. Cervical diskectomy ALLERGIES AMOXICILLIN CLAVULANIC ACID. MEDICATIONS: Please see list. SOCIAL HISTORY Denies any alcohol, tobacco or drug abuse. The patient lives at home alone but does have family nearby in the area. FAMILY HISTORY: Noncontributory. PHYSICAL EXAMINATION: VITAL SIGNS: Temperature is 97.9, T-max of 99.1, pulse 85, respiratory rate 18, blood pressure 149/81, pulse ox 95% O2 on room air. LABORATORY DATA White count 12.9, 1014.4, hemoglobin 9.9, hematocrit 31.0, platelets 446, INR 1.0. Chemistry sodium 136, potassium 4.2, chloride 102, carbon dioxide 27.3, BUN 15, random glucose 182 was 420 on admission Wound culture gram stains are pending. Blood culture is negative times one day. X-rays show no gas in the soft tissues but the radiologist did read possible osteomyelitis of the distal phalanx of the great toe, the distal and middle phalanx of second toe and possibly the distal phalanx of the third toe. MRI confirms the possibility stating suspicious osteomyelitis. The distal phalanx and proximal phalanx of the first toe as well as the middle and distal phalanx of the second toe. PHYSICAL EXAMINATION Physical exam the patient has diminished pulses, into the left and difficult to palpate pulses to the right lower extremity. Cap fill time less than 3 seconds. There is erythema and heat to the right lower leg and foot. No malodor. Protective sensation severely diminished. There is a open wound to the right hallux base of the lateral aspect approximately 0.75 cm x 0.57 cm and the distal aspect of the hallux as well and the wound you for deep but no exposed bone. No open ulcerations to the second and third digits. ASSESSMENT/PLAN 1)Stage 2/3 ulcers to the right hallux with cellulitis to the right lower extremity. -Given the patient's clinical appearance and his closely managed care, I feel that the x-rays and MRI may not be completely accurate. There are no deep probing wounds on the second or third digit, and while the hallux may have osteomyelitis it would likely respond well to IV antibiotics if the blood flow could be increased. -I spoke with the patient regarding conservative and surgical treatment options if osteomyelitis is present. -Vascular surgery has been consulted and the CTA has been ordered. -Wound care orders were placed for nursing staff. -We will continue to monitor the patient closely and will treat accordingly after speaking with the patient Thank you for allowing me be involved in this patient's care. Cayla Fernando /10:57 AM /12:25 PM JEFF
--- NOTE | 2017-02-12 13:29 | PD.CAR.PN ---
CVT Progress Note Subjective/Hospital Course: Pleasant 76-year-old gentleman with multiple medical problems and in addition, contusion and laceration the right hepatic lobe and fracture of the 11th and 12th ribs as a result of fall few days ago Patient clearly has impaired distal vasculature of the right leg and has severe diabetic neuropathy with the chronic wound and now osteomyelitis of the hallux Appreciate infectious disease and podiatry consults Carotid ultrasound reveals mild plaquing as I expected CTA with runoff is pending Once we have a better picture will be able to render more clear opinion as to the treatment of the right leg As far as the liver is concerned this is self-contained laceration and no further therapy is necessary 02/12/17 I have reviewed the CTA. He is confirming actually physical examination findings. Patient has good inflow with some disease in the iliac arteries as well as external iliacs and common femoral arteries bilaterally but no hemodynamically significant narrowing. Superficial femoris arteries are patent and so are the popliteals. The problem with grooves below the level of the trifurcation where patient has essentially not recognizable anatomical flow to both feet. On the left side there is a branch that resembles a peroneal artery that runs to the foot with number collaterals and on the right side old 3 vessels are occluded but there are bits and pieces of each with collaterals. This patient has severe limb threatening ischemia and there is no vascular or endovascular means by which we can improve the flow. Therefore podiatry specialist, Dr. Asher can go ahead and do what ever she needs to do as far as the foot is concerned but there is a high chance that this patient will end up with above-knee amputation in the near future Unfortunately as stated above there is no procedure to improve the blood flow to the foot or calf. Objective: Vital Signs Date Time Temp Pulse Resp B/P (MAP) Pulse Ox O2 Delivery O2 Flow Rate FiO2 02/12/17 12:22 98.5 95 18 92/51 (65) 96 02/12/17 08:42 97.9 85 18 149/81 (103) 95 02/12/17 05:19 98.5 78 16 160/84 (109) 93 02/12/17 03:38 84 160/83 (108) 02/12/17 02:48 97.8 84 18 176/88 (117) 97 02/12/17 00:50 16 02/12/17 00:41 96.5 84 16 145/82 (103) 97 02/11/17 20:49 97.3 81 18 156/80 (105) 96 02/11/17 16:00 97.3 83 16 126/72 (90) 96 Labs: Laboratory Tests Test 02/12/17 07:03 White Blood Count 12.9 TH/MM3 (4.0-11.0) Red Blood Count 3.91 MIL/MM3 (4.50-5.90) Hemoglobin 9.9 GM/DL (13.0-17.0) Hematocrit 31.0 % (39.0-51.0) Mean Corpuscular Volume 79.4 FL (80.0-100.0) Mean Corpuscular Hemoglobin 25.3 PG (27.0-34.0) Mean Corpuscular Hemoglobin Concent 31.9 % (32.0-36.0) Red Cell Distribution Width 16.9 % (11.6-17.2) Platelet Count 446 TH/MM3 (150-450) Mean Platelet Volume 7.2 FL (7.0-11.0) Blood Urea Nitrogen 15 MG/DL (7-18) Creatinine 0.82 MG/DL (0.60-1.30) Random Glucose 182 MG/DL (74-106) Calcium Level 8.5 MG/DL (8.5-10.1) Sodium Level 136 MEQ/L (136-145) Potassium Level 4.2 MEQ/L (3.5-5.1) Chloride Level 102 MEQ/L (98-107) Carbon Dioxide Level 27.3 MEQ/L (21.0-32.0) Anion Gap 7 MEQ/L (5-15) Estimat Glomerular Filtration Rate 92 ML/MIN (>89) Result Diagram: 02/12/1703 02/12/17 0703 Oliva Gamboa MD Feb 12, 2017 13:29
--- NOTE | 2017-02-12 15:18 | HHI.IDPN ---
Note Infectious Disease Note Patient without complaints. Afebrile. Wound culture pending. PAST MEDICAL HISTORY 1. Diabetes mellitus type 2, 2. Hypertension, 3. Gastroesophageal reflux disease, 4. Depression, 5. Appendectomy, 6. Cervical diskectomy. ALLERGIES AMOXICILLIN CLAVULANIC ACID MEDICATIONS 1. Vancomycin. 2. Levaquin. OBJECTIVE: Vital Signs Date Time Temp Pulse Resp B/P (MAP) Pulse Ox O2 Delivery O2 Flow Rate FiO2 02/12/17 12:22 98.5 95 18 92/51 (65) 96 02/12/17 08:42 97.9 85 18 149/81 (103) 95 02/12/17 05:19 98.5 78 16 160/84 (109) 93 02/12/17 03:38 84 160/83 (108) 02/12/17 02:48 97.8 84 18 176/88 (117) 97 02/12/17 00:50 16 02/12/17 00:41 96.5 84 16 145/82 (103) 97 02/11/17 20:49 97.3 81 18 156/80 (105) 96 02/11/17 16:00 97.3 83 16 126/72 (90) 96 Laboratory Tests Test 02/12/17 07:03 White Blood Count 12.9 TH/MM3 Red Blood Count 3.91 MIL/MM3 Hemoglobin 9.9 GM/DL Hematocrit 31.0 % Mean Corpuscular Volume 79.4 FL Mean Corpuscular Hemoglobin 25.3 PG Mean Corpuscular Hemoglobin Concent 31.9 % Red Cell Distribution Width 16.9 % Platelet Count 446 TH/MM3 Mean Platelet Volume 7.2 FL Laboratory Tests Test 02/12/17 07:03 Blood Urea Nitrogen 15 MG/DL Creatinine 0.82 MG/DL Random Glucose 182 MG/DL Calcium Level 8.5 MG/DL Sodium Level 136 MEQ/L Potassium Level 4.2 MEQ/L Chloride Level 102 MEQ/L Carbon Dioxide Level 27.3 MEQ/L Anion Gap 7 MEQ/L Estimat Glomerular Filtration Rate 92 ML/MIN Microbiology Date/Time Source Procedure Growth Status 02/10/17 13:10 Blood Peripheral Aerobic Blood Culture - Preliminary NO GROWTH IN 2 DAYS Resulted 02/10/17 13:10 Blood Peripheral Anaerobic Blood Culture - Preliminary NO GROWTH IN 2 DAYS Resulted 02/10/17 13:00 Blood Peripheral Aerobic Blood Culture - Preliminary NO GROWTH IN 2 DAYS Resulted 02/10/17 13:00 Blood Peripheral Anaerobic Blood Culture - Preliminary NO GROWTH IN 2 DAYS Resulted 02/11/17 17:00 Wound Toe Gram Stain - Final Resulted 02/11/17 17:00 Wound Toe Wound Culture Pending Resulted PHYSICAL EXAMINATION GENERAL: No acute distress. He is awake and alert and oriented. HEENT: No icterus. Oropharynx moist mucosa without lesions. NECK: Supple. No adenopathy. LUNGS: Clear breath sounds HEART: Regular S1, S2, without murmurs, rubs or gallops. ABDOMEN: Bowel sounds present, soft, no tenderness appreciated. EXTREMITIES: The right great toe remains markedly swollen. The right second toe has no ulcerations, but is markedly swollen. SKIN: No rash. NEUROLOGIC: Nonfocal. PSYCHIATRIC: Calm and cooperative. IMPRESSION 1. Osteomyelitis involving the right great toe and left second toe. 2. Leukocytosis RECOMMENDATIONS 1. Follow culture. 2. Continue vancomycin and Levaquin 3. Monitor blood culture until final. Josias Mcgraw MD Feb 12, 2017 15:18
--- NOTE | 2017-02-12 17:52 | HHI.PR ---
Subjective Remarks Follow-up visit status post fall, rib fractures, right foot cellulitis. Patient seen and examined today lying in bed. Daughter at the bedside. States his doing fine. Appetite is okay. Has been eating well. Has not gotten out of bed and walk around. States he was seen by Dr. Arrington today and has told him that he might have some amputation of his digits and the foot secondary to possible osteomyelitis. He has not seen the metal building assembler and has continued to be on antibiotic. Denies pain and discomfort. Denies SOB/ dyspnea. Denies chest pain, palpitations, headaches, dizziness. Denies fevers, chills, n/v/d. Denies hematuria, dysuria. Objective Vitals Vital Signs Date Time Temp Pulse Resp B/P (MAP) Pulse Ox O2 Delivery O2 Flow Rate FiO2 02/12/17 17:42 98.3 76 16 135/73 (93) 98 02/12/17 12:22 98.5 95 18 92/51 (65) 96 02/12/17 08:42 97.9 85 18 149/81 (103) 95 02/12/17 05:19 98.5 78 16 160/84 (109) 93 02/12/17 03:38 84 160/83 (108) 02/12/17 02:48 97.8 84 18 176/88 (117) 97 02/12/17 00:50 16 02/12/17 00:41 96.5 84 16 145/82 (103) 97 02/11/17 20:49 97.3 81 18 156/80 (105) 96 I/O 02/11/17 02/11/17 02/11/17 02/12/17 02/12/17 02/12/17 07:00 15:00 23:00 07:00 15:00 23:00 Intake Total 1490 ml 2070 ml 1000 ml Output Total 1200 ml 700 ml 775 ml Balance 290 ml 1370 ml 225 ml Intake Oral 240 ml 720 ml IV Total 1250 ml 1350 ml 1000 ml Output Urine Total 1200 ml 700 ml 775 ml # Bowel Movements 0 Result Diagram: 02/12/17 0703 02/12/17 0703 Imaging Last Impressions Foot MRI 02/11/17 0000 Signed Impressions: Service Date/Time: February 15:46 - CONCLUSION: 1. Findings suspicious for osteomyelitis are seen involving the distal phalanx and proximal phalanx of the first toe with adjacent soft tissue swelling. 2. Findings suspicious for osteophytosis are seen involving the middle and distal phalanx of the second toe 3. Nonspecific edema is seen throughout the soft tissues throughout the midfoot. Demond Bui MD Aorta w/Runoff CTA 02/11/17 0000 Signed Impressions: Service Date/Time: February 14:05 - CONCLUSION: 1. Severe bilateral infrapopliteal disease with no named runoff on the right and single vessel runoff on the left. No proximal stenosis is identified Alden Augustine MD Foot X-Ray 02/10/17 1239 Signed Impressions: Service Date/Time: Friday, February 10, 2017 13:08 - CONCLUSION: 1. Diffuse soft tissue swelling. 2. Suspect osteomyelitis of the distal phalanx of the great toe and the distal and middle phalanx of the second toe. 3. Questionable osteomyelitis of the distal phalanx of the third toe. Brian Sanchez MD Abdomen/Pelvis CT 02/10/17 1239 Signed Impressions: Service Date/Time: Friday, February 10, 2017 13:41 - CONCLUSION: 1. Acute fractures involving the lateral aspects of the right tenth and eleventh ribs. 2. Ill-defined area of decreased attenuation involving the medial aspect of the right lobe of the liver consistent with possible focal laceration and minimal perihepatic hematoma. Clinical correlation is recommended. 3. Ill-defined area of decreased attenuation within the dome of the liver in the expected region of the previously noted low density lesion consistent with hemangioma filling in or possible resolution of previous cyst. 4. Chronic calcific pancreatitis with marked atrophy of the pancreatic parenchyma and marked dilatation of the main pancreatic duct. 5. Right inguinal lymphadenopathy of indeterminate significance. 6. Degenerative changes and scoliosis if the thoracolumbar spine. 7. Tiny bilateral renal cysts. 8. Minimal ascites within the abdomen and pelvis. 9. Tiny right pleural effusion. Arnulfo Jansen MD Chest X-Ray 02/10/17 0000 Signed Impressions: Service Date/Time: Friday, February 10, 2017 12:02 - CONCLUSION: 1. Fractures of the right lateral eighth and ninth ribs which may be acute to subacute. 2. No pneumothorax or lung contusion. Edward Sotelo MD Carotid Artery Ultrasound 02/10/17 0000 Signed Impressions: Service Date/Time: Friday, February 10, 2017 21:42 - CONCLUSION: 1. Mild plaquing with no evidence of a hemodynamically significant stenosis. 2. Antegrade flow in both vertebral arteries. Edward Sotelo MD Objective Remarks GENERAL: This is a well-nourished, well-developed patient, in no apparent distress. SKIN: Warm and dry. HEENT: Normocephalic. Pupils equal round and reactive. Nose without bleeding. Airway patent. NECK: Trachea midline. No JVD. Supple. CARDIOVASCULAR: Regular rate and rhythm without murmurs, gallops, or rubs. RESPIRATORY: Clear to auscultation. Breath sounds equal bilaterally. No wheezes , rales, or rhonchi. GASTROINTESTINAL: Abdomen soft, non-tender, nondistended. Bowel Sounds normoactive x4. MUSCULOSKELETAL: Extremities without clubbing, cyanosis. Right lower extremity + 2 edema. Right lower extremity redness noted from midcalf all the way to ankle NEUROLOGICAL: Awake and alert. Oriented to place, person. No focal neuro deficit. Moves all extremities. Normal speech. A/P Problem List: (1) Right rib fracture ICD Code: S22.31XA - Fracture of one rib, right side, initial encounter for closed fracture Status: Acute (2) Osteomyelitis of toe of right foot ICD Code: M86.9 - Osteomyelitis, unspecified Status: Acute (3) Liver laceration ICD Code: S36.113A - Laceration of liver, unspecified degree, initial encounter Status: Acute (4) Fall ICD Code: W19.XXXA - Unspecified fall, initial encounter Status: Acute (5) DM type 2, uncontrolled, with lower extremity ulcer ICD Code: E11.622 - Type 2 diabetes mellitus with other skin ulcer; E11.65 - Type 2 diabetes mellitus with hyperglycemia; L97.909 - Non-pressure chronic ulcer of unspecified part of unspecified lower leg with unspecified severity Status: Chronic Assessment and Plan 76-year-old male admitted to the trauma service after what appears to be a mechanical fall. He sustained rib fractures and possible liver laceration. Hospitalist service following for medical management. Fall, rib fractures and a laceration: - Trauma service following. Patient appeared to be hemodynamically stable at this time. Foot wound probably contributed to the fall. - Continue with pain control. Incentive spirometry is advised. - Consult PT Right great toe with possible osteomyelitis: - Podiatry consulted. - Continue empiric antibiotics with Levaquin and vancomycin. - MRI of the foot showed findings suspicious of osteomyelitis are seen involving the distal phalanx and proximal phalanx of the first toe with adjacent soft tissue swelling. 2. findings suspicious of osteo-cytosis are seen involving the middle and distal phalanx of the second toe 3. Nonspecific edema seen throughout the soft tissues throughout the midfoot. Further plans per podiatry. Type 2 diabetes: Previously uncontrolled. Last A1c on record was 14. - Continue NovoLog scheduled 3 times a day and Lantus at night. - Continue sliding scale insulin with Accu-Cheks. - Check hemoglobin A1c GI prophylaxis: Stool softener PRN constipation. DVT PPx: Lovenox Discussed with patient, daughter, nursing, Dr. Rodriguez Discharge Planning Not ready for discharge. Pending podiatry consult and decision for possible surgical intervention. Problem Qualifiers (1) Right rib fracture: Qualified Codes: S22.41XA - Multiple fractures of ribs, right side, initial encounter for closed fracture (2) Liver laceration: Qualified Codes: S36.113A - Laceration of liver, unspecified degree, initial encounter (3) Fall: Qualified Codes: W19.XXXA - Unspecified fall, initial encounter Tamy Rodríguez Feb 12, 2017 17:52
--- NOTE | 2017-02-12 18:37 | PD.POD ---
Subjective Podiatric Problems Right hallux ulcer with resolving leg cellulitis and possible OM. Pt states he is feeling well and feels the leg is improving. He denies any n/v/f/h/c/sob. Pain score: 0 Past Med/Surg/Social History Social History Smoking Status: Never Smoker Objective Vital Signs Vital Signs Date Time Temp Pulse Resp B/P (MAP) Pulse Ox O2 Delivery O2 Flow Rate FiO2 02/12/17 17:42 98.3 76 16 135/73 (93) 98 02/12/17 12:22 98.5 95 18 92/51 (65) 96 02/12/17 08:42 97.9 85 18 149/81 (103) 95 02/12/17 05:19 98.5 78 16 160/84 (109) 93 02/12/17 03:38 84 160/83 (108) 02/12/17 02:48 97.8 84 18 176/88 (117) 97 02/12/17 00:50 16 02/12/17 00:41 96.5 84 16 145/82 (103) 97 02/11/17 20:49 97.3 81 18 156/80 (105) 96 Coded Allergies: amoxicillin (Unverified Adverse Reaction, Unknown, kidney problem, 11/24/16 ) clavulanic acid (Unverified Adverse Reaction, Unknown, kidney problem, ) Exam-Podiatry Remarks Exam is unchanged with the exception of a decrease in erythema intensity and size. Assessment & Plan A/P 1) right hallux stage II/III ulcer 2) RLE cellulitis 3) OM of right first and second digits -'s note was reviewed, which stated minimal blood flow to the foot without revascular options and a risk of AKA -I spoke to the patient and his daughter regarding risks and benefits of amputation vs [facility] iv abx. They understand that each option has risks, but they strongly prefer to avoid any amputation. They would like to try iv abx and f/u with their [place] strategic planning consultant. ID is already consulted and will likely help facilitate this. -Cont daily wound care as ordered -Cont iv abx -No surgical intervention at this time, as per pts wishes. Plan for iv abx for 6 weeks outpatient -Pt will need HHC for wounds and abx at time of d/c Cayla Asher DPM Feb 12, 2017 18:37
--- NOTE | 2017-02-12 18:37 | PD.POD ---
Subjective Podiatric Problems Right hallux ulcer with resolving leg cellulitis and possible OM. Pt states he is feeling well and feels the leg is improving. He denies any n/v/f/h/c/sob. Pain score: 0 Past Med/Surg/Social History Social History Smoking Status: Never Smoker Objective Vital Signs Vital Signs Date Time Temp Pulse Resp B/P (MAP) Pulse Ox O2 Delivery O2 Flow Rate FiO2 02/12/17 17:42 98.3 76 16 135/73 (93) 98 02/12/17 12:22 98.5 95 18 92/51 (65) 96 02/12/17 08:42 97.9 85 18 149/81 (103) 95 02/12/17 05:19 98.5 78 16 160/84 (109) 93 02/12/17 03:38 84 160/83 (108) 02/12/17 02:48 97.8 84 18 176/88 (117) 97 02/12/17 00:50 16 02/12/17 00:41 96.5 84 16 145/82 (103) 97 02/11/17 20:49 97.3 81 18 156/80 (105) 96 Coded Allergies: amoxicillin (Unverified Adverse Reaction, Unknown, kidney problem, 11/24/16 ) clavulanic acid (Unverified Adverse Reaction, Unknown, kidney problem, ) Exam-Podiatry Remarks Exam is unchanged with the exception of a decrease in erythema intensity and size. Assessment & Plan A/P 1) right hallux stage II/III ulcer 2) RLE cellulitis 3) OM of right first and second digits -'s note was reviewed, which stated minimal blood flow to the foot without revascular options and a risk of AKA -I spoke to the patient and his daughter regarding risks and benefits of amputation vs [facility] iv abx. They understand that each option has risks, but they strongly prefer to avoid any amputation. They would like to try iv abx and f/u with their [place] transportation operations manager. ID is already consulted and will likely help facilitate this. -Cont daily wound care as ordered -Cont iv abx -No surgical intervention at this time, as per pts wishes. Plan for iv abx for 6 weeks outpatient -Pt will need HHC for wounds and abx at time of d/c Cayla Asher DPM Feb 12, 2017 18:37
[2017-02-12] MEDS: LEVOFLOXACIN 500 MG PREMIX INJ 100 ML IV SCH (20:45)
[2017-02-12] MEDS: ENOXAPARIN SODIUM 40 MG/0.4 ML SYRINGE SQ SCH (20:48)
[2017-02-12] MEDS: PANTOPRAZOLE SOD 40 MG DELAYED RELEASE TAB PO SCH (20:48)
[2017-02-12] MEDS: INSULIN DETEMIR 100 UNITS/ML VIAL SQ SCH (21:49)
[2017-02-13] VITALS (7 sets, daily range): BP systolic 127–175; BP diastolic 72–95; PULSE 80–92; RESP 16–20; TEMP 97.5–98.1; O2SAT 95–98
[2017-02-13] MEDS: VANCOMYCIN INJ 1,000 MG in SODIUM CHLOR 0.9% 250 ML INJ 250 ML IV SCH ×2 (03:34→15:45)
[2017-02-13] MEDS: oxyCODONE/ACETAMINOPHEN 5 MG/325 MG TAB PO PRN ×2 (04:50→16:46)
[2017-02-13] MEDS ORDERED: ENALAPRILAT 1.25 MG/ML VIAL IV PUSH ONE (05:15)
[2017-02-13] MEDS: DOCUSATE SODIUM 100 MG CAP PO SCH ×2 (07:46→20:47)
[2017-02-13] MEDS: FERROUS SULFATE 325 MG (65 MG ELEMENTAL IRON) TAB PO SCH ×2 (07:46→16:46)
[2017-02-13] MEDS: LISINOPRIL 5 MG TAB PO SCH (07:46)
[2017-02-13] MEDS: PREGABALIN 75 MG CAP PO SCH (07:46)
[2017-02-13] MEDS: CHOLECALCIFEROL (VIT D3) 1000 UNIT TAB PO SCH ×3 (07:46→16:46)
[2017-02-13] MEDS: VENLAFAXINE HCL XR 75 MG CAP PO SCH (07:46)
[2017-02-13] MEDS: SODIUM CHLORIDE 0.9% FLUSH 10 ML FLUSH IV FLUSH SCH ×2 (07:47→20:47)
[2017-02-13] MEDS: THIAMINE HCL 100 MG TAB PO SCH (07:47)
[2017-02-13] MEDS: DULoxetine HCl DR 60 MG CAP PO SCH ×2 (07:47→20:47)
[2017-02-13] MEDS: INSULIN ASPART SUPPLEMENTAL SCALE SQ SCH ×4 (07:47→22:53)
[2017-02-13] MEDS: GENTAMICIN SULFATE 0.1% OINT 15 GM TUBE TOPICAL SCH (07:48)
[2017-02-13] MEDS: INSULIN ASPART 1,000 UNITS/10 ML VIAL SQ SCH ×3 (07:48→17:31)
[2017-02-13 08:19] LABS: HEMATOCRIT 33.2 % (39.0-51.0); HEMOGLOBIN 10.7 GM/DL (13.0-17.0); MEAN CELL VOLUME 79.7 FL (80.0-100.0); MEAN CORPUSCULAR HEMOGLOBIN 25.8 PG (27.0-34.0); MEAN CORPUSCULAR HGB CONC 32.4 % (32.0-36.0); MEAN PLATELET VOLUME 7.1 FL (7.0-11.0); PLATELET COUNT 526 TH/MM3 (150-450); RED BLOOD COUNT 4.17 MIL/MM3 (4.50-5.90); RED CELL DISTRIBUTION WIDTH 16.8 % (11.6-17.2); WHITE BLOOD COUNT 9.1 TH/MM3 (4.0-11.0)
[2017-02-13 08:42] LABS: BICARBONATE 27.6 MEQ/L (21.0-32.0); CALCIUM 8.7 MG/DL (8.5-10.1); CREATININE 0.77 MG/DL (0.60-1.30)
[2017-02-13 11:27] LABS: HEMOGLOBIN A1C 14.8 % (4.3-6.0)
--- NOTE | 2017-02-13 12:41 | HHI.PR ---
Subjective Subjective Notes Doing well,pain well controlled Objective Vitals/I&O Vital Signs Date Time Temp Pulse Resp B/P (MAP) Pulse Ox O2 Delivery O2 Flow Rate FiO2 02/13/17 12:00 97.7 83 18 164/92 (116) 95 02/10/17 14:30 Room Air Labs Laboratory Tests Test 02/13/17 07:30 White Blood Count 9.1 Red Blood Count 4.17 Hemoglobin 10.7 Hematocrit 33.2 Mean Corpuscular Volume 79.7 Mean Corpuscular Hemoglobin 25.8 Mean Corpuscular Hemoglobin Concent 32.4 Red Cell Distribution Width 16.8 Platelet Count 526 Mean Platelet Volume 7.1 Blood Urea Nitrogen 12 Creatinine 0.77 Random Glucose 134 Calcium Level 8.7 Sodium Level 138 Potassium Level 4.3 Chloride Level 103 Carbon Dioxide Level 27.6 Anion Gap 7 Estimat Glomerular Filtration Rate 99 Date/Time Source Procedure Growth Status 02/10/17 13:10 Blood Peripheral Aerobic Blood Culture - Preliminary NO GROWTH IN 3 DAYS Resulted 02/10/17 13:10 Blood Peripheral Anaerobic Blood Culture - Preliminary NO GROWTH IN 3 DAYS Resulted 02/11/17 17:00 Wound Toe Gram Stain - Final Resulted 02/11/17 17:00 Wound Culture - Preliminary Staphylococcus Aureus Resulted Cardiovascular: Regular Lungs: Clear Abdomen: Non-distended, Non-tender A/P Assessment and Plan doing well HGB stable IS 2000 cc stable from trauma stand point ID ,podiatry input appreciated vascular plan per Faby Mathews MD Feb 13, 2017 12:41
[2017-02-13] MEDS: SODIUM CHLOR 0.9% 1000 ML INJ 1,000 ML IV SCH ×2 (15:00→20:45)
--- NOTE | 2017-02-13 15:16 | HHI.PR ---
Subjective Remarks Follow-up for medical conditions Patient no complaints. He stated that he feels like he is doing well. He remains afebrile. He stated that the redness in his right leg improved drastically. Objective Vitals Vital Signs Date Time Temp Pulse Resp B/P (MAP) Pulse Ox O2 Delivery O2 Flow Rate FiO2 02/13/17 12:00 97.7 83 18 164/92 (116) 95 02/13/17 08:00 98.1 92 16 127/85 (99) 97 02/13/17 06:12 80 169/91 (117) 96 02/13/17 04:00 97.7 83 16 175/95 (121) 98 02/13/17 00:00 97.6 80 16 166/91 (116) 97 02/12/17 19:00 97.3 80 16 145/75 (98) 95 02/12/17 17:42 98.3 76 16 135/73 (93) 98 I/O 02/12/17 02/12/17 02/12/17 02/13/17 02/13/17 02/13/17 07:00 15:00 23:00 07:00 15:00 23:00 Intake Total 1000 ml 240 ml Output Total 775 ml 760 ml 1100 ml Balance 225 ml -760 ml -860 ml Intake Oral 240 ml IV Total 1000 ml Output Urine Total 775 ml 760 ml 1100 ml # Voids 2 1 Result Diagram: 02/13/1730 02/13/17 0730 Objective Remarks GENERAL: This is a well-nourished, well-developed patient, in no apparent distress. CARDIOVASCULAR: Regular rate and rhythm without murmurs, gallops, or rubs. RESPIRATORY: Clear to auscultation. Breath sounds equal bilaterally. No wheezes , rales, or rhonchi. GASTROINTESTINAL: Abdomen soft, non-tender, nondistended. Bowel Sounds normoactive x4. MUSCULOSKELETAL: Extremities without clubbing, cyanosis. Right lower extremity + 2 edema. Right lower extremity redness noted from midcalf all the way to ankle NEUROLOGICAL: Awake and alert. Oriented to place, person. No focal neuro deficit. Moves all extremities. Normal speech. Medications and IVs Current Medications Morphine Sulfate (Morphine Inj) 2 mg ONCE ONCE IV PUSH Last administered on t 13:36; Start 02/10/17 at 12:45; Stop 02/10/17 at 12:46; Status DC Sodium Chloride 1,000 ml @ 1,000 mls/hr Q1H IV Last administered on 02/10/17 13:35; Start 02/10/17 at 12:39; Stop 02/10/17 at 13:38; Status DC Sodium Chloride (NS Flush) 2 ml UNSCH PRN IV FLUSH FLUSH AFTER USING IV ACCESS ; Start 02/10/17 at 12:45; Stop 02/10/17 at 21:49; Status DC Iohexol (Omnipaque 350 Inj) 96 ml STK-MED ONCE IVCONTRAST Last administered on 02/10/17 13:44; Start 02/10/17 at 13:44; Stop 02/10/17 at 13:45; Status DC Vancomycin HCl 1000 mg/Sodium Chloride 250 ml @ 250 mls/hr ONCE ONCE IV Last administered on 02/10/17 15:33; Start 02/10/17 at 14:45; Stop 02/10/17 at 15:44 ; Status DC Sodium Chloride 1,000 ml @ 100 mls/hr Q10H IV Last administered on 02/12/17 23:58; Start 02/10/17 at 20:00 Sodium Chloride (NS Flush) 2 ml UNSCH PRN IV FLUSH FLUSH AFTER USING IV ACCESS ; Start 02/10/17 at 18:45 Sodium Chloride (NS Flush) 2 ml BID IV FLUSH Last administered on 02/12/17 09: 00; Start 02/10/17 at 21:00 Ondansetron HCl (Zofran Inj) 4 mg Q6H PRN IV PUSH NAUSEA OR VOMITING; Start at 18:45 Pantoprazole Sodium (Protonix) 40 mg Q24H PO Last administered on 02/12/17 20: 48; Start 02/10/17 at 20:00 Docusate Sodium (Colace) 100 mg BID PO Last administered on 02/13/17 07:46; Start 02/10/17 at 21:00 Miscellaneous Information (Post-op Orders (for Pharmacy)) STAT ONCE XX ; Start 02/10/17 at 18:45; Stop 02/10/17 at 19:19; Status DC Oxycodone/ Acetaminophen (Percocet 5-325 Mg) 1 tab Q4H PRN PO PAIN SCALE 3 TO 5 Last administered on 02/13/17 04:50; Start 02/10/17 at 18:45 Naloxone HCl (Narcan Inj) 0.4 mg UNSCH PRN IV PUSH SEE LABEL COMMENTS; Start 02/10/17 at 18:45 Enoxaparin Sodium (Lovenox Inj) 40 mg Q24H SQ Last administered on 02/12/17 20 :48; Start 02/10/17 at 21:00 Vancomycin HCl 1000 mg/Sodium Chloride 250 ml @ 250 mls/hr Q12H IV Last administered on 02/13/17 03:34; Start 02/11/17 at 03:00 Levofloxacin/ Dextrose 100 ml @ 100 mls/hr Q24H IV Last administered on 20:45; Start 02/10/17 at 20:00 Gentamicin Sulfate (Gentamicin 0.1% Oint) 1 applic DAILY TOPICAL Last administered on 02/13/17 07:48; Start 02/11/17 at 11:45 Cholecalciferol (Vitamin D3) 1,000 units TID PO Last administered on 02/13/17 12:37; Start 02/11/17 at 13:00 Duloxetine HCl (Cymbalta Dr) 60 mg BID PO Last administered on 02/13/17 07:47 ; Start 02/11/17 at 21:00 Ferrous Sulfate (Ferrous Sulfate) 325 mg BIDPC PO Last administered on 07:46; Start 02/11/17 at 18:00 Pregabalin (Lyrica) 75 mg DAILY PO Last administered on 02/13/17 07:46; Start 02/12/17 at 09:00 Thiamine HCl (Vitamin B1) 100 mg DAILY PO Last administered on 02/13/17 07:47 ; Start 02/12/17 at 09:00 Venlafaxine HCl (Effexor Xr) 75 mg DAILY PO Last administered on 02/13/17 07: 46; Start 02/12/17 at 09:00 Insulin Aspart (NovoLOG INJ) 10 units TID SQ Last administered on 02/13/17 12: 37; Start 02/11/17 at 13:00 Insulin Detemir (Levemir Inj) 25 units HS SQ Last administered on 02/12/17 21: 49; Start 02/11/17 at 21:00 Non-Formulary Medication 40 mg DAILY PO ; Start 02/12/17 at 09:00; Status UNV Dextrose (D50w (Vial) Inj) 50 ml UNSCH PRN IV PUSH HYPOGLYCEMIA-SEE COMMENTS; Start 02/11/17 at 12:30 Glucagon (Glucagon Inj) 1 mg UNSCH PRN OTHER HYPOGLYCEMIA-SEE COMMENTS; Start 02/11/17 at 12:30 Insulin Aspart (NovoLOG SUPPLEMENTAL SCALE) 1 ACHS SLIDING SCALE SQ Last administered on 02/13/17 12:00; Start 02/11/17 at 13:00 Iohexol (Omnipaque 350 Inj) 75 ml STK-MED ONCE IVCONTRAST Last administered on 02/11/17 14:36; Start 02/11/17 at 14:36; Stop 02/11/17 at 14:37; Status DC Gadodiamide (Omniscan Pf Inj) 14 ml STK-MED ONCE IVCONTRAST Last administered on 02/11/17 16:00; Start 02/11/17 at 16:00; Stop 02/11/17 at 17:54; Status DC Lisinopril (Prinivil) 5 mg DAILY PO Last administered on 02/13/17 07:46; Start 02/13/17 at 09:00 Enalaprilat (Vasotec Inj) 2.5 mg ONCE ONCE IV PUSH Last administered on 05:25; Start 02/13/17 at 05:15; Stop 02/13/17 at 05:22; Status DC Lidocaine HCl (Lidoderm 5% Patch.12 Hr) 1 patch DAILY T-DERMAL ; Start 02/13/17 at 12:45 Miscellaneous Information 1 HS T-DERMAL ; Start 02/13/17 at 21:00 A/P Problem List: (1) Right rib fracture ICD Code: S22.31XA - Fracture of one rib, right side, initial encounter for closed fracture Status: Acute (2) Osteomyelitis of toe of right foot ICD Code: M86.9 - Osteomyelitis, unspecified Status: Acute (3) Liver laceration ICD Code: S36.113A - Laceration of liver, unspecified degree, initial encounter Status: Acute (4) Fall ICD Code: W19.XXXA - Unspecified fall, initial encounter Status: Acute (5) DM type 2, uncontrolled, with lower extremity ulcer ICD Code: E11.622 - Type 2 diabetes mellitus with other skin ulcer; E11.65 - Type 2 diabetes mellitus with hyperglycemia; L97.909 - Non-pressure chronic ulcer of unspecified part of unspecified lower leg with unspecified severity Status: Chronic Assessment and Plan 76-year-old male admitted to the trauma service after what appears to be a mechanical fall. He sustained rib fractures and possible liver laceration. Hospitalist service following for medical management. Fall, rib fractures and a laceration: - Trauma service following. Patient appeared to be hemodynamically stable at this time. Foot wound probably contributed to the fall. - Continue with pain control. Incentive spirometry is advised. - PT consulted. Right great toe with possible osteomyelitis: - Podiatry consulted. - Continue empiric antibiotics with Levaquin and vancomycin. - MRI of the foot showed findings suspicious of osteomyelitis are seen involving the distal phalanx and proximal phalanx of the first toe with adjacent soft tissue swelling. 2. findings suspicious of osteo-cytosis are seen involving the middle and distal phalanx of the second toe 3. Nonspecific edema seen throughout the soft tissues throughout the midfoot. -Podiatry is following and stated that patient wants to avoid amputation and treat with IV antibiotics. -Per vascular surgeon patient has poor circulation he may need above-the- knee amputation. Type 2 diabetes: Previously uncontrolled. Last A1c on record was 14. - Better controlled. Continue NovoLog scheduled 3 times a day and Lantus at night. - Hemoglobin A1c 14.8. GI prophylaxis: Stool softener PRN constipation. DVT PPx: Lovenox Problem Qualifiers (1) Right rib fracture: Qualified Codes: S22.41XA - Multiple fractures of ribs, right side, initial encounter for closed fracture (2) Liver laceration: Qualified Codes: S36.113A - Laceration of liver, unspecified degree, initial encounter (3) Fall: Qualified Codes: W19.XXXA - Unspecified fall, initial encounter Kallie Soto MD Feb 13, 2017 15:16
[2017-02-13] MEDS: LIDOCAINE HCL 5% PATCH T-DERMAL SCH (15:44)
[2017-02-13 17:46] LABS: HEMATOCRIT 30.5 % (39.0-51.0); HEMOGLOBIN 9.9 GM/DL (13.0-17.0); MEAN CELL VOLUME 79.5 FL (80.0-100.0); MEAN CORPUSCULAR HEMOGLOBIN 25.9 PG (27.0-34.0); MEAN CORPUSCULAR HGB CONC 32.6 % (32.0-36.0); MEAN PLATELET VOLUME 7.2 FL (7.0-11.0); PLATELET COUNT 453 TH/MM3 (150-450); RED BLOOD COUNT 3.84 MIL/MM3 (4.50-5.90); RED CELL DISTRIBUTION WIDTH 17.5 % (11.6-17.2); WHITE BLOOD COUNT 10.1 TH/MM3 (4.0-11.0)
[2017-02-13] MEDS: LEVOFLOXACIN 500 MG PREMIX INJ 100 ML IV SCH (20:45)
[2017-02-13] MEDS: ENOXAPARIN SODIUM 40 MG/0.4 ML SYRINGE SQ SCH (20:46)
[2017-02-13] MEDS: PANTOPRAZOLE SOD 40 MG DELAYED RELEASE TAB PO SCH (20:46)
[2017-02-13] MEDS: INSULIN DETEMIR 100 UNITS/ML VIAL SQ SCH (22:53)
[2017-02-13] MEDS: REMOVE OLD LIDOCAINE PATCH T-DERMAL SCH (22:54)
[2017-02-14] VITALS (7 sets, daily range): BP systolic 85–184; BP diastolic 51–104; PULSE 83–99; RESP 18–20; TEMP 95–99; O2SAT 88–97
[2017-02-14] MEDS ORDERED: ENALAPRILAT 2.5 MG/2 ML VIAL IV PUSH ONE (00:15)
[2017-02-14] MEDS: VANCOMYCIN INJ 1,000 MG in SODIUM CHLOR 0.9% 250 ML INJ 250 ML IV SCH ×2 (04:05→15:48)
[2017-02-14] MEDS ORDERED: NIFEdipine 30 MG SUSTAINED RELEASE TAB PO ONE (06:00)
[2017-02-14] MEDS: SODIUM CHLOR 0.9% 1000 ML INJ 1,000 ML IV SCH ×2 (06:30→13:19)
[2017-02-14] MEDS: THIAMINE HCL 100 MG TAB PO SCH (07:26)
[2017-02-14] MEDS: DOCUSATE SODIUM 100 MG CAP PO SCH ×2 (07:26→21:13)
[2017-02-14] MEDS: PREGABALIN 75 MG CAP PO SCH (07:26)
[2017-02-14] MEDS: LISINOPRIL 5 MG TAB PO SCH (07:26)
[2017-02-14] MEDS: VENLAFAXINE HCL XR 75 MG CAP PO SCH (07:26)
[2017-02-14] MEDS: CHOLECALCIFEROL (VIT D3) 1000 UNIT TAB PO SCH ×3 (07:27→15:47)
[2017-02-14] MEDS: DULoxetine HCl DR 60 MG CAP PO SCH ×2 (07:27→21:13)
[2017-02-14] MEDS: FERROUS SULFATE 325 MG (65 MG ELEMENTAL IRON) TAB PO SCH ×2 (07:27→15:48)
[2017-02-14] MEDS: INSULIN ASPART SUPPLEMENTAL SCALE SQ SCH ×4 (07:33→21:49)
[2017-02-14] MEDS: INSULIN ASPART 1,000 UNITS/10 ML VIAL SQ SCH ×3 (07:33→18:00)
[2017-02-14] MEDS: SODIUM CHLORIDE 0.9% FLUSH 10 ML FLUSH IV FLUSH SCH ×2 (07:33→21:00)
[2017-02-14] MEDS: GENTAMICIN SULFATE 0.1% OINT 15 GM TUBE TOPICAL SCH (09:00)
--- NOTE | 2017-02-14 10:05 | HHI.PR ---
Subjective Remarks Follow-up visit status post fall, rib fractures, right foot cellulitis. Patient seen and examined today sitting in the chair. Reports he is doing well. States that he spoke with podiatry and would like to continue with conservative treatment rather than amputation. Patient states he is willing to do IV antibiotics or by mouth antibiotics for appeared to time and he knows the risk factors of osteomyelitis could recur or cellulitis of the foot could recur if off antibiotics. He is also aware of risks of being on antibiotics. States that her daughter is a nurse and is able to help him. Denies pain and discomfort. Denies SOB/ dyspnea. Denies chest pain, palpitations, headaches, dizziness. Denies fevers, chills, n/v/d. Denies dysuria. Objective Vitals Vital Signs Date Time Temp Pulse Resp B/P (MAP) Pulse Ox O2 Delivery O2 Flow Rate FiO2 02/14/17 08:13 97.8 87 20 175/104 (127) 97 02/14/17 05:47 184/97 (126) 02/14/17 05:26 95.0 83 20 163/95 (117) 88 02/14/17 00:19 97.4 83 18 167/91 (116) 95 02/13/17 20:49 97.5 86 20 146/85 (105) 95 02/13/17 16:00 97.9 80 18 145/72 (96) 96 02/13/17 12:00 97.7 83 18 164/92 (116) 95 I/O 02/13/17 02/13/17 02/13/17 02/14/17 02/14/17 02/14/17 07:00 15:00 23:00 07:00 15:00 23:00 Intake Total 240 ml 480 ml 100 ml 1250 ml Output Total 1100 ml 900 ml 1525 ml 1150 ml Balance -860 ml -420 ml -1425 ml 100 ml Intake Oral 240 ml 480 ml IV Total 100 ml 1250 ml Output Urine Total 1100 ml 900 ml 1525 ml 1150 ml # Voids 1 # Bowel Movements 0 1 Result Diagram: 02/13/17 1629 02/13/17 0730 Imaging Last Impressions Foot MRI 02/11/17 0000 Signed Impressions: Service Date/Time: February 15:46 - CONCLUSION: 1. Findings suspicious for osteomyelitis are seen involving the distal phalanx and proximal phalanx of the first toe with adjacent soft tissue swelling. 2. Findings suspicious for osteophytosis are seen involving the middle and distal phalanx of the second toe 3. Nonspecific edema is seen throughout the soft tissues throughout the midfoot. Demond Bui MD Aorta w/Runoff CTA 02/11/17 0000 Signed Impressions: Service Date/Time: February 14:05 - CONCLUSION: 1. Severe bilateral infrapopliteal disease with no named runoff on the right and single vessel runoff on the left. No proximal stenosis is identified Alden Augustine MD Foot X-Ray 02/10/17 1239 Signed Impressions: Service Date/Time: Friday, February 10, 2017 13:08 - CONCLUSION: 1. Diffuse soft tissue swelling. 2. Suspect osteomyelitis of the distal phalanx of the great toe and the distal and middle phalanx of the second toe. 3. Questionable osteomyelitis of the distal phalanx of the third toe. Brian Sanchez MD Abdomen/Pelvis CT 02/10/17 1239 Signed Impressions: Service Date/Time: Friday, February 10, 2017 13:41 - CONCLUSION: 1. Acute fractures involving the lateral aspects of the right tenth and eleventh ribs. 2. Ill-defined area of decreased attenuation involving the medial aspect of the right lobe of the liver consistent with possible focal laceration and minimal perihepatic hematoma. Clinical correlation is recommended. 3. Ill-defined area of decreased attenuation within the dome of the liver in the expected region of the previously noted low density lesion consistent with hemangioma filling in or possible resolution of previous cyst. 4. Chronic calcific pancreatitis with marked atrophy of the pancreatic parenchyma and marked dilatation of the main pancreatic duct. 5. Right inguinal lymphadenopathy of indeterminate significance. 6. Degenerative changes and scoliosis if the thoracolumbar spine. 7. Tiny bilateral renal cysts. 8. Minimal ascites within the abdomen and pelvis. 9. Tiny right pleural effusion. Arnulfo Jansen MD Chest X-Ray 02/10/17 0000 Signed Impressions: Service Date/Time: Friday, February 10, 2017 12:02 - CONCLUSION: 1. Fractures of the right lateral eighth and ninth ribs which may be acute to subacute. 2. No pneumothorax or lung contusion. Edward Sotelo MD Carotid Artery Ultrasound 02/10/17 0000 Signed Impressions: Service Date/Time: Friday, February 10, 2017 21:42 - CONCLUSION: 1. Mild plaquing with no evidence of a hemodynamically significant stenosis. 2. Antegrade flow in both vertebral arteries. Edward Sotelo MD Objective Remarks GENERAL: This is a well-nourished, well-developed patient, in no apparent distress. SKIN: Warm and dry. HEENT: Normocephalic. Pupils equal round and reactive. Nose without bleeding. Airway patent. NECK: Trachea midline. No JVD. Supple. CARDIOVASCULAR: Regular rate and rhythm without murmurs, gallops, or rubs. RESPIRATORY: Clear to auscultation. Breath sounds equal bilaterally. No wheezes , rales, or rhonchi. GASTROINTESTINAL: Abdomen soft, non-tender, nondistended. Bowel Sounds normoactive x4. MUSCULOSKELETAL: Extremities without clubbing, cyanosis. Right lower extremity + 2 edema. Right lower extremity redness noted from midcalf all the way to ankle NEUROLOGICAL: Awake and alert. Oriented to place, person. No focal neuro deficit. Moves all extremities. Normal speech. A/P Problem List: (1) Right rib fracture ICD Code: S22.31XA - Fracture of one rib, right side, initial encounter for closed fracture Status: Acute (2) Osteomyelitis of toe of right foot ICD Code: M86.9 - Osteomyelitis, unspecified Status: Acute (3) Liver laceration ICD Code: S36.113A - Laceration of liver, unspecified degree, initial encounter Status: Acute (4) Fall ICD Code: W19.XXXA - Unspecified fall, initial encounter Status: Acute (5) DM type 2, uncontrolled, with lower extremity ulcer ICD Code: E11.622 - Type 2 diabetes mellitus with other skin ulcer; E11.65 - Type 2 diabetes mellitus with hyperglycemia; L97.909 - Non-pressure chronic ulcer of unspecified part of unspecified lower leg with unspecified severity Status: Chronic Assessment and Plan 76-year-old male admitted to the trauma service after what appears to be a mechanical fall. He sustained rib fractures and possible liver laceration. Hospitalist service following for medical management. Fall, rib fractures and a laceration: - Trauma service following. Patient appeared to be hemodynamically stable at this time. Foot wound probably contributed to the fall. - Continue with pain control. Incentive spirometry is advised. - Consult PT Right great toe with osteomyelitis: - Podiatry consulted. - Continue empiric antibiotics with Levaquin and vancomycin. - MRI of the foot showed findings suspicious of osteomyelitis are seen involving the distal phalanx and proximal phalanx of the first toe with adjacent soft tissue swelling. 2. findings suspicious of osteo-cytosis are seen involving the middle and distal phalanx of the second toe 3. Nonspecific edema seen throughout the soft tissues throughout the midfoot. Further plans per podiatry. - Patient has decided that he will go with antibiotic treatments rather than amputation as it was explained to him by podiatry. Will verify continued use of antibiotics with infectious disease. Patient might need to coordinate plans with infectious disease from the [place] to manage antibiotic treatment. Type 2 diabetes, uncontrolled. Last A1c on record was 14. - Continue NovoLog scheduled 3 times a day and Lantus at night. - Continue sliding scale insulin with Accu-Cheks. - hemoglobin A1c 14.8 - BG levels 140's GI prophylaxis: Stool softener PRN constipation. DVT PPx: Lovenox Discussed with patient, daughter, nursing, Dr. Soto Discharge Planning Will need ID clearance and ABX treatment recommendation for DC. Problem Qualifiers (1) Right rib fracture: Qualified Codes: S22.41XA - Multiple fractures of ribs, right side, initial encounter for closed fracture (2) Liver laceration: Qualified Codes: S36.113A - Laceration of liver, unspecified degree, initial encounter (3) Fall: Qualified Codes: W19.XXXA - Unspecified fall, initial encounter Tamy Rodríguez Feb 14, 2017 10:05
--- NOTE | 2017-02-14 14:05 | HHI.PR ---
Subjective Subjective Notes feeling better Objective Vitals/I&O Vital Signs Date Time Temp Pulse Resp B/P (MAP) Pulse Ox O2 Delivery O2 Flow Rate FiO2 02/14/17 12:15 98.0 90 20 145/79 (101) 97 02/10/17 14:30 Room Air Labs Laboratory Tests Test 02/13/17 16:29 White Blood Count 10.1 Red Blood Count 3.84 Hemoglobin 9.9 Hematocrit 30.5 Mean Corpuscular Volume 79.5 Mean Corpuscular Hemoglobin 25.9 Mean Corpuscular Hemoglobin Concent 32.6 Red Cell Distribution Width 17.5 Platelet Count 453 Mean Platelet Volume 7.2 Date/Time Source Procedure Growth Status 02/10/17 13:10 Blood Peripheral Aerobic Blood Culture - Preliminary NO GROWTH IN 4 DAYS Resulted 02/10/17 13:10 Blood Peripheral Anaerobic Blood Culture - Preliminary NO GROWTH IN 4 DAYS Resulted 02/11/17 17:00 Wound Toe Gram Stain - Final Resulted 02/11/17 17:00 Wound Culture - Preliminary Staphylococcus Aureus Group D Enterococcus Resulted Cardiovascular: Regular Lungs: Clear A/P Assessment and Plan doing well HGB stable repeat 02/15 IS 2000 cc stable from trauma stand point ID ,podiatry input appreciated vascular plan per Dr.J mccabe sq heparin Faby Hameed MD Feb 14, 2017 14:05
[2017-02-14] MEDS: LIDOCAINE HCL 5% PATCH T-DERMAL SCH (16:21)
[2017-02-14 16:56] LABS: HEMATOCRIT 30.1 % (39.0-51.0); HEMOGLOBIN 9.9 GM/DL (13.0-17.0); MEAN CELL VOLUME 79.4 FL (80.0-100.0); MEAN CORPUSCULAR HEMOGLOBIN 26.1 PG (27.0-34.0); MEAN CORPUSCULAR HGB CONC 32.9 % (32.0-36.0); MEAN PLATELET VOLUME 7.2 FL (7.0-11.0); PLATELET COUNT 424 TH/MM3 (150-450); RED BLOOD COUNT 3.79 MIL/MM3 (4.50-5.90); RED CELL DISTRIBUTION WIDTH 17.3 % (11.6-17.2); WHITE BLOOD COUNT 9.5 TH/MM3 (4.0-11.0)
[2017-02-14] MEDS: PANTOPRAZOLE SOD 40 MG DELAYED RELEASE TAB PO SCH (21:13)
[2017-02-14] MEDS: HEPARIN SODIUM - SQ 10,000 UNITS/ML VIAL SQ SCH (21:13)
[2017-02-14] MEDS: LEVOFLOXACIN 500 MG PREMIX INJ 100 ML IV SCH (21:14)
[2017-02-14] MEDS: INSULIN DETEMIR 100 UNITS/ML VIAL SQ SCH (21:48)
[2017-02-14] MEDS: REMOVE OLD LIDOCAINE PATCH T-DERMAL SCH (21:50)
[2017-02-15] VITALS: BP 131/54; PULSE 84; RESP 18; TEMP 98.3; O2SAT 95
[2017-02-15] MEDS: VANCOMYCIN INJ 1,000 MG in SODIUM CHLOR 0.9% 250 ML INJ 250 ML IV SCH ×2 (02:53→14:28)
[2017-02-15 04:00] VITALS: BP 152/91; PULSE 85; RESP 18; TEMP 98.6; O2SAT 96
--- NOTE | 2017-02-15 06:32 | RADRPT ---
EXAM DATE/TIME: 02/15/2017 05:28 [facility] COMPARISON: CHEST SINGLE AP, August 19, 2016, 17:56. INDICATIONS : Pain right ribs, short of breath MEDICAL HISTORY : Cardiovascular disease. Diabetes mellitus type II. osteomyelitis right foot SURGICAL HISTORY : None. ENCOUNTER: Subsequent ACUITY: 4 - 6 days PAIN SCORE: 4/10 LOCATION: Bilateral chest FINDINGS: A single view of the chest demonstrates the lungs to be symmetrically aerated without evidence of mas s, infiltrate or effusion. The cardiomediastinal contours are unremarkable. Osseous structures are intact. CONCLUSION: 1. No acute cardiopulmonary disease. Alden Augustine MD on February 15, 2017 at 6:31 Board Certified Radiologist. This report was verified electronically.
[2017-02-15 08:05] VITALS: BP 198/96; PULSE 90; RESP 20; TEMP 97.7; O2SAT 95
[2017-02-15] MEDS: CHOLECALCIFEROL (VIT D3) 1000 UNIT TAB PO SCH ×3 (08:39→17:17)
[2017-02-15] MEDS: VENLAFAXINE HCL XR 75 MG CAP PO SCH (08:39)
[2017-02-15] MEDS: PREGABALIN 75 MG CAP PO SCH (08:39)
[2017-02-15] MEDS: DOCUSATE SODIUM 100 MG CAP PO SCH ×2 (08:39→21:02)
[2017-02-15] MEDS: INSULIN ASPART SUPPLEMENTAL SCALE SQ SCH ×4 (08:39→21:00)
[2017-02-15] MEDS: INSULIN ASPART 1,000 UNITS/10 ML VIAL SQ SCH ×3 (08:39→17:17)
[2017-02-15] MEDS: HEPARIN SODIUM - SQ 10,000 UNITS/ML VIAL SQ SCH ×2 (08:40→21:04)
[2017-02-15] MEDS: THIAMINE HCL 100 MG TAB PO SCH (08:40)
[2017-02-15] MEDS: LISINOPRIL 5 MG TAB PO SCH (08:40)
[2017-02-15] MEDS: FERROUS SULFATE 325 MG (65 MG ELEMENTAL IRON) TAB PO SCH ×2 (08:40→17:17)
[2017-02-15] MEDS: DULoxetine HCl DR 60 MG CAP PO SCH ×2 (08:40→21:01)
[2017-02-15] MEDS: GENTAMICIN SULFATE 0.1% OINT 15 GM TUBE TOPICAL SCH (08:41)
[2017-02-15] MEDS: SODIUM CHLORIDE 0.9% FLUSH 10 ML FLUSH IV FLUSH SCH ×2 (08:41→21:00)
[2017-02-15] MEDS: SODIUM CHLOR 0.9% 1000 ML INJ 1,000 ML IV SCH ×3 (08:41→20:00)
[2017-02-15] MEDS: LIDOCAINE HCL 5% PATCH T-DERMAL SCH (08:41)
[2017-02-15 12:42] VITALS: BP 139/77; PULSE 90; RESP 20; TEMP 98.6; O2SAT 97
--- NOTE | 2017-02-15 13:04 | HHI.IDPN ---
Note Infectious Disease Note Patient without complaints. Afebrile. Wound culture has group D enterococcus and staph aureus. PAST MEDICAL HISTORY 1. Diabetes mellitus type 2, 2. Hypertension, 3. Gastroesophageal reflux disease, 4. Depression, 5. Appendectomy, 6. Cervical diskectomy. ALLERGIES AMOXICILLIN CLAVULANIC ACID MEDICATIONS 1. Vancomycin. 2. Levaquin. OBJECTIVE: Vital Signs Date Time Temp Pulse Resp B/P (MAP) Pulse Ox O2 Delivery O2 Flow Rate FiO2 02/15/17 12:42 98.6 90 20 139/77 (97) 97 02/15/17 09:43 18 02/15/17 08:05 97.7 90 20 198/96 (130) 95 02/15/17 04:00 98.6 85 18 152/91 (111) 96 02/15/17 00:00 98.3 84 18 131/54 (79) 95 02/14/17 20:00 97.4 84 18 141/79 (99) 95 02/14/17 17:14 99.0 99 20 85/51 (62) 96 Laboratory Tests Test 02/13/17 16:29 02/14/17 16:20 White Blood Count 10.1 TH/MM3 9.5 TH/MM3 Red Blood Count 3.84 MIL/MM3 3.79 MIL/MM3 Hemoglobin 9.9 GM/DL 9.9 GM/DL Hematocrit 30.5 % 30.1 % Mean Corpuscular Volume 79.5 FL 79.4 FL Mean Corpuscular Hemoglobin 25.9 PG 26.1 PG Mean Corpuscular Hemoglobin Concent 32.6 % 32.9 % Red Cell Distribution Width 17.5 % 17.3 % Platelet Count 453 TH/MM3 424 TH/MM3 Mean Platelet Volume 7.2 FL 7.2 FL PHYSICAL EXAMINATION GENERAL: No acute distress. Awake and alert and oriented. HEENT: No icterus. Oropharynx moist mucosa without lesions. NECK: Supple. No adenopathy. LUNGS: Clear breath sounds HEART: Regular S1, S2, without murmurs, rubs or gallops. ABDOMEN: Bowel sounds present, soft, no tenderness appreciated. EXTREMITIES: The right great toe swelling has decreased. The right second toe has no ulcerations, but is markedly swollen. SKIN: No rash. NEUROLOGIC: Nonfocal. PSYCHIATRIC: Calm and cooperative. IMPRESSION 1. Osteomyelitis involving the Right great toe and right second toe. MSSA and group D enterococcus. 2. Leukocytosis improved. RECOMMENDATIONS 1. Continue vancomycin. 2. Stop Levaquin 3. Arrange for IV Vancomycin x 6 weeks. 4. PIC line. Josias Mcgraw MD Feb 15, 2017 13:04
--- NOTE | 2017-02-15 13:13 | HHI.FF ---
Infusion Therapy Location of Infusion Therapy: [facility] IV Infusion Order Patient Information Patient Weight 75.1 kg Diagnosis: Diagnosis osteo r. foot Coded Allergies: amoxicillin (Unverified Adverse Reaction, Unknown, kidney problem, 11/24/16 ) clavulanic acid (Unverified Adverse Reaction, Unknown, kidney problem, ) Administer Medication Vancomycin 1.5 grams IV q 24 hours Stop Treatment: Mar 25, 2017 Additional Information Venous access: PICC Line Additional Instructions [x] Peripheral flush and dressing changes per protocol [x] Implanted port and central inspector final assembly conveyor line: * Implanted port: 10 ml Normal Saline followed by 5 ml Heparin 100 units/ml Heparin flush after each use and monthly to maintain. [] May leave port accessed during therapy. [] May leave peripheral site accessed for duration of therapy. [x] If patient has SOB or respiratory distress, check oxygen saturation. If less than 90% or clinical signs of respiratory distress, administer oxygen at 2 L/min. via nasal cannula and notify physician. [x] Anaphylaxis/Reaction orders: * Stop infusion. * Keep IV line open with saline flush. * Notify physician. * Monitor vital signs every 15 minutes until symptoms resolve. * Check Oxygen saturation; Oxygen at 2 L/min. via nasal cannula if less than 90% or clinical signs of respiratory distress. * Administer diphenhydramine (Benadryl) 25 mg IV STAT, (unless patient has received as pre-med). May repeat once, if necessary. * Solu-Cortef 250 mg IVP over 30-60 seconds, use 100 mg vials for each dissolution. * Epinephrine (1mg/1 ml) 0.3 mg subcutaneously or IVP now with any signs of respiratory distress. * Check with physician for new additional pre-med orders if patient is re- challenged or re-treated. [x] May remove PICC line when treatment complete, after confirming with Physician. [x] If the patient is admitted to the hospital, the ED, or transferred via [facility] , complete transfer form including medication reconciliation order sheet. Laboratory Tests Weekly Labs: BMP, Vancomycin Trough Additional Information Follow up with [facility] ID doctor in 1 week. Josias Mcgraw MD Feb 15, 2017 13:13
--- NOTE | 2017-02-15 15:02 | PD.CAR.PN ---
CVT Progress Note Subjective/Hospital Course: Pleasant 76-year-old gentleman with multiple medical problems and in addition, contusion and laceration the right hepatic lobe and fracture of the 11th and 12th ribs as a result of fall few days ago Patient clearly has impaired distal vasculature of the right leg and has severe diabetic neuropathy with the chronic wound and now osteomyelitis of the hallux Appreciate infectious disease and podiatry consults Carotid ultrasound reveals mild plaquing as I expected CTA with runoff is pending Once we have a better picture will be able to render more clear opinion as to the treatment of the right leg As far as the liver is concerned this is self-contained laceration and no further therapy is necessary 02/12/17 I have reviewed the CTA. He is confirming actually physical examination findings. Patient has good inflow with some disease in the iliac arteries as well as external iliacs and common femoral arteries bilaterally but no hemodynamically significant narrowing. Superficial femoris arteries are patent and so are the popliteals. The problem with grooves below the level of the trifurcation where patient has essentially not recognizable anatomical flow to both feet. On the left side there is a branch that resembles a peroneal artery that runs to the foot with number collaterals and on the right side old 3 vessels are occluded but there are bits and pieces of each with collaterals. This patient has severe limb threatening ischemia and there is no vascular or endovascular means by which we can improve the flow. Therefore podiatry specialist, Dr. Asher can go ahead and do what ever she needs to do as far as the foot is concerned but there is a high chance that this patient will end up with above-knee amputation in the near future Unfortunately as stated above there is no procedure to improve the blood flow to the foot or calf. 02/15/17 Patient with ischemia of the right leg and osteomyelitis of the hallux Patient is doing much better. Cellulitis and edema of the right leg is partially resolved and patient remains on IV antibiotics ID and podiatry expert opinions are greatly appreciated and patient will remain on the IV antibiotics on outpatient basis Will have case management organized the same and then discharge the patient as soon as arrangements are made Patient will follow-up with me and podiatry/ID as per instructions Objective: Vital Signs Date Time Temp Pulse Resp B/P (MAP) Pulse Ox O2 Delivery O2 Flow Rate FiO2 02/15/17 12:42 98.6 90 20 139/77 (97) 97 02/15/17 09:43 18 02/15/17 08:05 97.7 90 20 198/96 (130) 95 02/15/17 04:00 98.6 85 18 152/91 (111) 96 02/15/17 00:00 98.3 84 18 131/54 (79) 95 02/14/17 20:00 97.4 84 18 141/79 (99) 95 02/14/17 17:14 99.0 99 20 85/51 (62) 96 Labs: Laboratory Tests Test 02/15/17 13:30 Vancomycin Level Trough 19.3 MCG/ML (5.0-10.0) Result Diagram: 02/14/17 1620 02/13/17 0730 Oliva Gamboa MD Feb 15, 2017 15:02
[2017-02-15 16:45] VITALS: BP 92/60; PULSE 92; RESP 20; TEMP 97.7; O2SAT 98
--- NOTE | 2017-02-15 17:15 | RADRPT ---
EXAM DATE/TIME: 02/15/2017 16:42 [facility] COMPARISON: CHEST SINGLE AP, February 15, 2017, 5:28. INDICATIONS : Post PICC line placement. MEDICAL HISTORY : Cardiovascular disease. Diabetes mellitus type II. Osteomyelitis right foot. SURGICAL HISTORY : None. ENCOUNTER: Subsequent ACUITY: 4 - 6 days PAIN SCORE: 4/10 LOCATION: Bilateral chest FINDINGS: A single view of the chest demonstrates the lungs to be symmetrically aerated without evidence of mas s, infiltrate or effusion. Right upper extremity PICC line with the tip projecting over the central venous system. The cardiomediastinal contours are unremarkable. Osseous structures are intact with s ome degenerative spurring of the dorsal spine. CONCLUSION: 1. Right upper extremity PICC line with the tip projecting over the central venous system. 2. Lungs are clear. Grover Carter MD on February 15, 2017 at 17:11 Board Certified Radiologist. This report was verified electronically.
[2017-02-15 19:52] VITALS: BP 133/77; PULSE 83; RESP 20; TEMP 97.6; O2SAT 96
[2017-02-15] MEDS: INSULIN DETEMIR 100 UNITS/ML VIAL SQ SCH (21:00)
[2017-02-15] MEDS: REMOVE OLD LIDOCAINE PATCH T-DERMAL SCH (21:00)
[2017-02-15] MEDS: PANTOPRAZOLE SOD 40 MG DELAYED RELEASE TAB PO SCH (21:02)
[2017-02-16 00:12] VITALS: BP 158/94; PULSE 82; RESP 20; TEMP 97.3; O2SAT 99
[2017-02-16] MEDS: SODIUM CHLOR 0.9% 1000 ML INJ 1,000 ML IV SCH ×2 (02:06→15:10)
[2017-02-16] MEDS: VANCOMYCIN INJ 1,000 MG in SODIUM CHLOR 0.9% 250 ML INJ 250 ML IV SCH ×2 (02:40→15:10)
[2017-02-16 04:08] VITALS: BP 126/87; PULSE 91; RESP 20; O2SAT 100
[2017-02-16 07:00] VITALS: BP 156/85; PULSE 90; RESP 20; TEMP 97.6; O2SAT 98
[2017-02-16] MEDS: INSULIN ASPART SUPPLEMENTAL SCALE SQ SCH ×4 (08:00→21:00)
[2017-02-16] MEDS: SODIUM CHLORIDE 0.9% FLUSH 10 ML FLUSH IV FLUSH SCH ×2 (09:00→21:00)
[2017-02-16] MEDS: INSULIN ASPART 1,000 UNITS/10 ML VIAL SQ SCH ×3 (09:37→17:22)
[2017-02-16] MEDS: FERROUS SULFATE 325 MG (65 MG ELEMENTAL IRON) TAB PO SCH ×2 (09:38→17:21)
[2017-02-16] MEDS: LISINOPRIL 5 MG TAB PO SCH (09:38)
[2017-02-16] MEDS: THIAMINE HCL 100 MG TAB PO SCH (09:38)
[2017-02-16] MEDS: HEPARIN SODIUM - SQ 10,000 UNITS/ML VIAL SQ SCH ×2 (09:39→22:58)
[2017-02-16] MEDS: CHOLECALCIFEROL (VIT D3) 1000 UNIT TAB PO SCH ×3 (09:39→17:21)
[2017-02-16] MEDS: DOCUSATE SODIUM 100 MG CAP PO SCH ×2 (09:39→21:00)
[2017-02-16] MEDS: DULoxetine HCl DR 60 MG CAP PO SCH ×2 (09:39→22:57)
[2017-02-16] MEDS: PREGABALIN 75 MG CAP PO SCH (09:39)
[2017-02-16] MEDS: VENLAFAXINE HCL XR 75 MG CAP PO SCH (09:39)
[2017-02-16] MEDS: LIDOCAINE HCL 5% PATCH T-DERMAL SCH (09:41)
[2017-02-16] MEDS: GENTAMICIN SULFATE 0.1% OINT 15 GM TUBE TOPICAL SCH (09:49)
--- NOTE | 2017-02-16 10:53 | PD.CAR.PN ---
CVT Progress Note Subjective/Hospital Course: Pleasant 76-year-old gentleman with multiple medical problems and in addition, contusion and laceration the right hepatic lobe and fracture of the 11th and 12th ribs as a result of fall few days ago Patient clearly has impaired distal vasculature of the right leg and has severe diabetic neuropathy with the chronic wound and now osteomyelitis of the hallux Appreciate infectious disease and podiatry consults Carotid ultrasound reveals mild plaquing as I expected CTA with runoff is pending Once we have a better picture will be able to render more clear opinion as to the treatment of the right leg As far as the liver is concerned this is self-contained laceration and no further therapy is necessary 02/12/17 I have reviewed the CTA. He is confirming actually physical examination findings. Patient has good inflow with some disease in the iliac arteries as well as external iliacs and common femoral arteries bilaterally but no hemodynamically significant narrowing. Superficial femoris arteries are patent and so are the popliteals. The problem with grooves below the level of the trifurcation where patient has essentially not recognizable anatomical flow to both feet. On the left side there is a branch that resembles a peroneal artery that runs to the foot with number collaterals and on the right side old 3 vessels are occluded but there are bits and pieces of each with collaterals. This patient has severe limb threatening ischemia and there is no vascular or endovascular means by which we can improve the flow. Therefore podiatry specialist, Dr. Asher can go ahead and do what ever she needs to do as far as the foot is concerned but there is a high chance that this patient will end up with above-knee amputation in the near future Unfortunately as stated above there is no procedure to improve the blood flow to the foot or calf. 02/15/17 Patient with ischemia of the right leg and osteomyelitis of the hallux Patient is doing much better. Cellulitis and edema of the right leg is partially resolved and patient remains on IV antibiotics ID and podiatry expert opinions are greatly appreciated and patient will remain on the IV antibiotics on outpatient basis Will have case management organized the same and then discharge the patient as soon as arrangements are made Patient will follow-up with me and podiatry/ID as per instructions 02/16/17 Leg swelling almost gone. Osteo as per podiatry DC today FU with podiatry and vascular surgery Objective: Vital Signs Date Time Temp Pulse Resp B/P (MAP) Pulse Ox O2 Delivery O2 Flow Rate FiO2 02/16/17 04:08 91 20 126/87 (100) 100 02/16/17 00:12 97.3 82 20 158/94 (115) 99 02/15/17 19:52 97.6 83 20 133/77 (95) 96 02/15/17 16:45 97.7 92 20 92/60 (71) 98 02/15/17 12:42 98.6 90 20 139/77 (97) 97 Result Diagram: 02/14/17 1620 02/13/17 0730 Oliva Gamboa MD Feb 16, 2017 10:53
[2017-02-16 12:55] VITALS: BP 153/85; PULSE 101; RESP 20; TEMP 97.6; O2SAT 98
[2017-02-16 17:33] VITALS: BP 133/84; PULSE 87; RESP 20; TEMP 97.7; O2SAT 98
[2017-02-16] MEDS: REMOVE OLD LIDOCAINE PATCH T-DERMAL SCH (21:00)
[2017-02-16] MEDS: INSULIN DETEMIR 100 UNITS/ML VIAL SQ SCH (21:00)
[2017-02-16] MEDS: PANTOPRAZOLE SOD 40 MG DELAYED RELEASE TAB PO SCH (22:57)
[2017-02-17] VITALS: BP 130/70; PULSE 80; RESP 20; TEMP 98.8; O2SAT 95
[2017-02-17] MEDS: VANCOMYCIN INJ 1,000 MG in SODIUM CHLOR 0.9% 250 ML INJ 250 ML IV SCH (03:18)
[2017-02-17] MEDS: SODIUM CHLOR 0.9% 1000 ML INJ 1,000 ML IV SCH (03:21)
[2017-02-17] MEDS: GENTAMICIN SULFATE 0.1% OINT 15 GM TUBE TOPICAL SCH (04:00)
[2017-02-17 05:00] VITALS: BP 125/70; PULSE 67; RESP 19; TEMP 98.3; O2SAT 96
[2017-02-17 08:00] VITALS: BP 184/92; PULSE 90; RESP 18; TEMP 97.8; O2SAT 97
[2017-02-17] MEDS: PREGABALIN 75 MG CAP PO SCH (09:50)
[2017-02-17] MEDS: THIAMINE HCL 100 MG TAB PO SCH (09:50)
[2017-02-17] MEDS: LISINOPRIL 5 MG TAB PO SCH (09:51)
[2017-02-17] MEDS: DULoxetine HCl DR 60 MG CAP PO SCH (09:51)
[2017-02-17] MEDS: CHOLECALCIFEROL (VIT D3) 1000 UNIT TAB PO SCH ×2 (09:51→13:54)
[2017-02-17] MEDS: VENLAFAXINE HCL XR 75 MG CAP PO SCH (09:51)
[2017-02-17] MEDS: FERROUS SULFATE 325 MG (65 MG ELEMENTAL IRON) TAB PO SCH (09:51)
[2017-02-17] MEDS: HEPARIN SODIUM - SQ 10,000 UNITS/ML VIAL SQ SCH (09:52)
[2017-02-17] MEDS: INSULIN ASPART 1,000 UNITS/10 ML VIAL SQ SCH ×2 (09:59→13:54)
--- NOTE | 2017-02-17 10:31 | HHI.FF ---
Face to Face Verification Diagnosis: (1) Osteomyelitis of toe of right foot Home Health Nursing Order: Wound care and dressing changes Nursing assessment with vital signs I have seen patient Gabriel Neves on 02/17/17. My clinical findings support the need for the requested home health care services because: Limited ability to care for self I certify that my clinical findings support that this patient is homebound because: Post-op weakness Oliva Gamboa MD Feb 17, 2017 10:31
[2017-02-17 12:00] VITALS: BP 110/64; PULSE 104; RESP 18; TEMP 98.4; O2SAT 99
[2017-02-17] MEDS: INSULIN ASPART SUPPLEMENTAL SCALE SQ SCH (13:53)
--- NOTE | 2017-02-17 14:46 | HHI.PR ---
Subjective Remarks Fall from medical conditions Patient is no complaints. Per patient's nurse he was discharged but waiting for [facility] approval. Patient stated he is doing very well and very anxious to leave the hospital. Objective Vitals Vital Signs Date Time Temp Pulse Resp B/P (MAP) Pulse Ox O2 Delivery O2 Flow Rate FiO2 02/17/17 12:00 98.4 104 18 110/64 (79) 99 02/17/17 08:00 97.8 90 18 184/92 (122) 97 02/17/17 05:00 98.3 67 19 125/70 (88) 96 02/17/17 00:00 98.8 80 20 130/70 (90) 95 02/16/17 17:33 97.7 87 20 133/84 (100) 98 I/O 02/16/17 02/16/17 02/16/17 02/17/17 02/17/17 02/17/17 07:00 15:00 23:00 07:00 15:00 23:00 Intake Total 1855 ml 910 ml 1899 ml 1694 ml Output Total 1000 ml 1500 ml 1600 ml Balance 855 ml 910 ml 399 ml 94 ml Intake Oral 240 ml 960 ml 950 ml IV Total 1855 ml 670 ml 939 ml 744 ml Output Urine Total 1000 ml 1500 ml 1600 ml # Voids 4 # Bowel Movements 1 0 Result Diagram: 02/14/17 1620 02/13/17 0730 Objective Remarks GENERAL: This is a well-nourished, well-developed patient, in no apparent distress. CARDIOVASCULAR: Regular rate and rhythm without murmurs, gallops, or rubs. RESPIRATORY: Clear to auscultation. Breath sounds equal bilaterally. No wheezes , rales, or rhonchi. GASTROINTESTINAL: Abdomen soft, non-tender, nondistended. Bowel Sounds normoactive x4. MUSCULOSKELETAL: Extremities without clubbing, cyanosis. Right lower extremity + 2 edema. Right lower extremity redness noted from midcalf all the way to ankle NEUROLOGICAL: Awake and alert. Oriented to place, person. No focal neuro deficit. Moves all extremities. Normal speech. Medications and IVs Current Medications Morphine Sulfate (Morphine Inj) 2 mg ONCE ONCE IV PUSH Last administered on t 13:36; Start 02/10/17 at 12:45; Stop 02/10/17 at 12:46; Status DC Sodium Chloride 1,000 ml @ 1,000 mls/hr Q1H IV Last administered on 02/10/17 13:35; Start 02/10/17 at 12:39; Stop 02/10/17 at 13:38; Status DC Sodium Chloride (NS Flush) 2 ml UNSCH PRN IV FLUSH FLUSH AFTER USING IV ACCESS ; Start 02/10/17 at 12:45; Stop 02/10/17 at 21:49; Status DC Iohexol (Omnipaque 350 Inj) 96 ml STK-MED ONCE IVCONTRAST Last administered on 02/10/17 13:44; Start 02/10/17 at 13:44; Stop 02/10/17 at 13:45; Status DC Vancomycin HCl 1000 mg/Sodium Chloride 250 ml @ 250 mls/hr ONCE ONCE IV Last administered on 02/10/17 15:33; Start 02/10/17 at 14:45; Stop 02/10/17 at 15:44 ; Status DC Sodium Chloride 1,000 ml @ 100 mls/hr Q10H IV Last administered on 02/17/17 03:21; Start 02/10/17 at 20:00; Stop 02/17/17 at 14:24; Status DC Sodium Chloride (NS Flush) 2 ml UNSCH PRN IV FLUSH FLUSH AFTER USING IV ACCESS ; Start 02/10/17 at 18:45; Stop 02/17/17 at 14:24; Status DC Sodium Chloride (NS Flush) 2 ml BID IV FLUSH Last administered on 02/14/17 07: 33; Start 02/10/17 at 21:00; Stop 02/17/17 at 14:24; Status DC Ondansetron HCl (Zofran Inj) 4 mg Q6H PRN IV PUSH NAUSEA OR VOMITING; Start at 18:45; Stop 02/17/17 at 14:24; Status DC Pantoprazole Sodium (Protonix) 40 mg Q24H PO Last administered on 02/16/17 22: 57; Start 02/10/17 at 20:00; Stop 02/17/17 at 14:24; Status DC Docusate Sodium (Colace) 100 mg BID PO Last administered on 02/16/17 09:39; Start 02/10/17 at 21:00; Stop 02/17/17 at 14:24; Status DC Miscellaneous Information (Post-op Orders (for Pharmacy)) STAT ONCE XX ; Start 02/10/17 at 18:45; Stop 02/10/17 at 19:19; Status DC Oxycodone/ Acetaminophen (Percocet 5-325 Mg) 1 tab Q4H PRN PO PAIN SCALE 3 TO 5 Last administered on 02/13/17 16:46; Start 02/10/17 at 18:45; Stop 02/17/17 at 14:24; Status DC Naloxone HCl (Narcan Inj) 0.4 mg UNSCH PRN IV PUSH SEE LABEL COMMENTS; Start 02/10/17 at 18:45; Stop 02/17/17 at 14:24; Status DC Enoxaparin Sodium (Lovenox Inj) 40 mg Q24H SQ Last administered on 02/13/17 20 :46; Start 02/10/17 at 21:00; Stop 02/14/17 at 16:43; Status DC Vancomycin HCl 1000 mg/Sodium Chloride 250 ml @ 250 mls/hr Q12H IV Last administered on 02/17/17 03:18; Start 02/11/17 at 03:00; Stop 02/17/17 at 14:24 ; Status DC Levofloxacin/ Dextrose 100 ml @ 100 mls/hr Q24H IV Last administered on 21:14; Start 02/10/17 at 20:00; Stop 02/15/17 at 12:58; Status DC Gentamicin Sulfate (Gentamicin 0.1% Oint) 1 applic DAILY TOPICAL Last administered on 02/17/17 04:00; Start 02/11/17 at 11:45; Stop 02/17/17 at 14:24 ; Status DC Cholecalciferol (Vitamin D3) 1,000 units TID PO Last administered on 02/17/17 13:54; Start 02/11/17 at 13:00; Stop 02/17/17 at 14:24; Status DC Duloxetine HCl (Cymbalta Dr) 60 mg BID PO Last administered on 02/17/17 09:51 ; Start 02/11/17 at 21:00; Stop 02/17/17 at 14:24; Status DC Ferrous Sulfate (Ferrous Sulfate) 325 mg BIDPC PO Last administered on 09:51; Start 02/11/17 at 18:00; Stop 02/17/17 at 14:24; Status DC Pregabalin (Lyrica) 75 mg DAILY PO Last administered on 02/17/17 09:50; Start 02/12/17 at 09:00; Stop 02/17/17 at 14:24; Status DC Thiamine HCl (Vitamin B1) 100 mg DAILY PO Last administered on 02/17/17 09:50 ; Start 02/12/17 at 09:00; Stop 02/17/17 at 14:24; Status DC Venlafaxine HCl (Effexor Xr) 75 mg DAILY PO Last administered on 02/17/17 09: 51; Start 02/12/17 at 09:00; Stop 02/17/17 at 14:24; Status DC Insulin Aspart (NovoLOG INJ) 10 units TID SQ Last administered on 02/17/17 13: 54; Start 02/11/17 at 13:00; Stop 02/17/17 at 14:24; Status DC Insulin Detemir (Levemir Inj) 25 units HS SQ Last administered on 02/16/17 21: 00; Start 02/11/17 at 21:00; Stop 02/17/17 at 14:24; Status DC Non-Formulary Medication 40 mg DAILY PO ; Start 02/12/17 at 09:00; Status UNV Dextrose (D50w (Vial) Inj) 50 ml UNSCH PRN IV PUSH HYPOGLYCEMIA-SEE COMMENTS; Start 02/11/17 at 12:30; Stop 02/17/17 at 14:24; Status DC Glucagon (Glucagon Inj) 1 mg UNSCH PRN OTHER HYPOGLYCEMIA-SEE COMMENTS; Start 02/11/17 at 12:30; Stop 02/17/17 at 14:24; Status DC Insulin Aspart (NovoLOG SUPPLEMENTAL SCALE) 1 ACHS SLIDING SCALE SQ Last administered on 02/17/17 13:53; Start 02/11/17 at 13:00; Stop 02/17/17 at 14:24 ; Status DC Iohexol (Omnipaque 350 Inj) 75 ml STK-MED ONCE IVCONTRAST Last administered on 02/11/17 14:36; Start 02/11/17 at 14:36; Stop 02/11/17 at 14:37; Status DC Gadodiamide (Omniscan Pf Inj) 14 ml STK-MED ONCE IVCONTRAST Last administered on 02/11/17 16:00; Start 02/11/17 at 16:00; Stop 02/11/17 at 17:54; Status DC Lisinopril (Prinivil) 5 mg DAILY PO Last administered on 02/17/17 09:51; Start 02/13/17 at 09:00; Stop 02/17/17 at 14:24; Status DC Enalaprilat (Vasotec Inj) 2.5 mg ONCE ONCE IV PUSH Last administered on 05:25; Start 02/13/17 at 05:15; Stop 02/13/17 at 05:22; Status DC Lidocaine HCl (Lidoderm 5% Patch.12 Hr) 1 patch DAILY T-DERMAL Last administered on 02/16/17 09:41; Start 02/13/17 at 12:45; Stop 02/17/17 at 14:24 ; Status DC Miscellaneous Information 1 HS T-DERMAL Last administered on 02/16/17 21:00; Start 02/13/17 at 21:00; Stop 02/17/17 at 14:24; Status DC Enalaprilat (Vasotec Inj) 2.5 mg ONCE ONCE IV PUSH Last administered on 00:43; Start 02/14/17 at 00:15; Stop 02/14/17 at 00:16; Status DC Nifedipine (Procardia Xl) 30 mg ONCE ONCE PO Last administered on 02/14/17 06 :01; Start 02/14/17 at 06:00; Stop 02/14/17 at 06:01; Status DC Heparin Sodium (Porcine) (Heparin Inj) 5,000 units Q12HR SQ Last administered on 02/17/17 09:52; Start 02/14/17 at 21:00; Stop 02/17/17 at 14:24; Status DC Heparin Sodium (Porcine) (Heparin Central Flush) See Protocol DAILY IV FLUSH Last administered on 02/17/17 13:56; Start 02/16/17 at 09:00; Stop 02/17/17 at 14:24; Status DC Heparin Sodium (Porcine) (Heparin Central Flush) See Protocol UNSCH PRN IV FLUSH SEE PROTOCOL TABLE; Start 02/15/17 at 17:00; Stop 02/17/17 at 14:24; Status DC Sodium Chloride (NS Flush) UNSCH PRN IV FLUSH SEE PROTOCOL TABLE Last administered on 02/17/17t 13:56; Start 02/15/17 at 17:00; Stop 02/17/17 at 14:24 ; Status DC A/P Problem List: (1) Right rib fracture ICD Code: S22.31XA - Fracture of one rib, right side, initial encounter for closed fracture Status: Acute (2) Osteomyelitis of toe of right foot ICD Code: M86.9 - Osteomyelitis, unspecified Status: Acute (3) Liver laceration ICD Code: S36.113A - Laceration of liver, unspecified degree, initial encounter Status: Acute (4) Fall ICD Code: W19.XXXA - Unspecified fall, initial encounter Status: Acute (5) DM type 2, uncontrolled, with lower extremity ulcer ICD Code: E11.622 - Type 2 diabetes mellitus with other skin ulcer; E11.65 - Type 2 diabetes mellitus with hyperglycemia; L97.909 - Non-pressure chronic ulcer of unspecified part of unspecified lower leg with unspecified severity Status: Chronic Assessment and Plan 76-year-old male admitted to the trauma service after what appears to be a mechanical fall. He sustained rib fractures and possible liver laceration. Hospitalist service following for medical management. Fall, rib fractures and a laceration: - Trauma service following. Patient appeared to be hemodynamically stable at this time. Foot wound probably contributed to the fall. - Continue with pain control. Incentive spirometry is advised. - PT consulted. Right great toe with possible osteomyelitis: - Podiatry consulted. - Continue empiric antibiotics with Levaquin and vancomycin. - MRI of the foot showed findings suspicious of osteomyelitis are seen involving the distal phalanx and proximal phalanx of the first toe with adjacent soft tissue swelling. 2. findings suspicious of osteo-cytosis are seen involving the middle and distal phalanx of the second toe 3. Nonspecific edema seen throughout the soft tissues throughout the midfoot. -Podiatry is following and stated that patient wants to avoid amputation and treat with IV antibiotics. Type 2 diabetes: Previously uncontrolled. Last A1c on record was 14. - Better controlled. Continue NovoLog scheduled 3 times a day and Lantus at night. - Hemoglobin A1c 14.8. GI prophylaxis: Stool softener PRN constipation. DVT PPx: Lovenox Discharge Planning Patient medically cleared and stable for discharge. Problem Qualifiers (1) Right rib fracture: Qualified Codes: S22.41XA - Multiple fractures of ribs, right side, initial encounter for closed fracture (2) Liver laceration: Qualified Codes: S36.113A - Laceration of liver, unspecified degree, initial encounter (3) Fall: Qualified Codes: W19.XXXA - Unspecified fall, initial encounter Kallie Soto MD Feb 17, 2017 14:46
== END 2017-02-17 14:24 | disposition home or self-care (01) | DRG 184 ==
LOC: NEPD 11:40 → NEDA 18:32 → N07A 20:11 → N05B 02-12 02:30
PROVIDERS: ADMIT Surgery; ATTEND Surgery
DX: S22.41XA Multiple fractures of ribs, right side, initial encounter for closed fracture (principal); M86.9 Osteomyelitis, unspecified; S36.113A Laceration of liver, unspecified degree, initial encounter; E11.40 Type 2 diabetes mellitus with diabetic neuropathy, unspecified; L03.115 Cellulitis of right lower limb; K86.1 Other chronic pancreatitis; F03.90 Unspecified dementia, unspecified severity, without behavioral disturbance, psychotic disturbance, mood disturbance, and anxiety; E11.622 Type 2 diabetes mellitus with other skin ulcer; M41.9 Scoliosis, unspecified; L97.519 Non-pressure chronic ulcer of other part of right foot with unspecified severity; I10 Essential (primary) hypertension; K76.89 Other specified diseases of liver; I73.9 Peripheral vascular disease, unspecified; K21.9 Gastro-esophageal reflux disease without esophagitis; H66.91 Otitis media, unspecified, right ear; Z79.4 Long term (current) use of insulin; F32.9 Major depressive disorder, single episode, unspecified; W19.XXXA Unspecified fall, initial encounter; Y92.009 Unspecified place in unspecified non-institutional (private) residence as the place of occurrence of the external cause; D64.9 Anemia, unspecified
CPT/HCPCS: 36569; 71010; 71020; 73630; 73720; 74177; 75635; 76937; 80048; 80076; 80202; 81001; 82948; 83036; 83605; 85025; 85027; 85610; 85730; 86403; 87040; 87070; 87077; 87147; 87186; 87205; 93880; 94150; 96361; 96374; 96375; A9579; J1642; J1644; J1650; J1815; J1956; J2270; J3370; J7030; J7050; Q9967